=== PATIENT | female | born 1940 | race Caucasian/White ===

== ENCOUNTER 2017-12-15 14:54 | Inpatient (IN) | payer MEDICARE ==
[2017-12-15] MEDS ORDERED: NS 0.9% 1000 ML* 1,000 ML IV ONE (14:57)
--- NOTE | 2017-12-15 15:14 | RAD ---
HISTORY: Neurological changes, code tay COMPARISONS: May 02, 2010 TECHNIQUE: Multiple contiguous axial CT scans were obtained of the head without intravenous contrast. FINDINGS: HEMORRHAGE/INFARCT: There is no hemorrhage or acute infarct. MASSES/SHIFT: There is no mass or shift. EXTRA-AXIAL SPACES: There are no extra-axial fluid collections. SULCI AND VENTRICLES: The sulci and ventricles are normal in size and position for the patient's stated age. CEREBRUM: There are no focal parenchymal abnormalities. BRAINSTEM: There are no focal parenchymal abnormalities. CEREBELLUM: There are no focal parenchymal abnormalities. VESSELS: There is calcification of the cavernous segments of the internal carotid arteries bilaterally and of the distal vertebral arteries bilaterally. PARANASAL SINUSES: There is a mucous retention cyst versus polypoid mucosal thickening of the left maxillary sinus. ORBITS: The orbits are unremarkable. BONES AND SOFT TISSUE: No bone or soft tissue abnormalities are noted. OTHER: None IMPRESSION: NO ACUTE INTRACRANIAL PATHOLOGY. PRELIMINARY FINDINGS WERE DISCUSSED WITH DR. RANDALL IN THE EMERGENCY DEPARTMENT AT APPROXIMATELY 3:10 PM ON DECEMBER 15, 2017.
[2017-12-15] MEDS ORDERED: Labetalol IV* 5 MG/ML 20 ML VIAL IV PUSH ONE ×3 (15:24→22:22)
[2017-12-15] MEDS ORDERED: Labetalol IV* 5 MG/ML 20 ML VIAL ONE (15:26)
[2017-12-15 16:13] LABS: Urine Appearance Clear; Urine Blood 1+ (Negative); Urine Color Yellow; Urine Ketones Negative (Negative); Urine Protein 2+(100 mg/dL) (Negative); Urine Specific Gravity 1.008 (1.010-1.030); Urine Urobilinogen Negative (Negative)
[2017-12-15 16:38] LABS: ABS Basophils 0.1 10^3/ul (0-0.2); ABS Eosinophils 0.1 10^3/ul (0-0.6); ABS Lymphocytes 0.9 10^3/ul (1.0-4.8); ABS Monocytes 0.7 10^3/ul (0-0.8); ABS Neutrophils 8.6 10^3/ul (1.5-7.7); ABS Nucleated RBC 0 10^3/ul; Eosinophil % 0.8 % (0-6); Hematocrit 41 % (35-47); Hemoglobin 13.6 g/dl (12.0-16.0); Mean Corpuscular HGB Conc 33 g/dl (31-36); Mean Corpuscular Hemoglobin 28 pg (27-31); Mean Corpuscular Volume 84 fL (80-97); Mean Platelet Volume 7.8 um3 (7.4-10.4); Nucleated Red Blood Cells % 0; Platelet Count 248 10^3/ul (150-450); Red Blood Count 4.91 10^6/ul (4.0-5.4); Red Cell Distribution Width 15 % (10.5-15); White Blood Count 10.4 10^3/ul (3.5-10.8)
[2017-12-15 16:43] LABS: INR 0.93 (0.77-1.02)
--- NOTE | 2017-12-15 16:49 | RAD ---
Indication: Neurologic changes; code hurtado. History of obstructive lung disease and cardiac disease. Comparison: March 01, 2016 CT abdomen and portable chest radiograph. Technique: Upright AP 1613 hours Report: Mild bilateral alveolar and interstitial opacities. Grossly clear pleural spaces. Negative for pneumothorax. Cardiomegaly which appears increased. RIGHT atrial and RIGHT ventricular pacemaker leads. Prominent ill-defined central pulmonary vasculature with cephalization. IMPRESSION: Pulmonary vascular congestion and interstitial pulmonary edema.
[2017-12-15] MEDS ORDERED: Aspirin TAB* 325 MG PO ONE (16:51)
[2017-12-15 16:52] LABS: EGFR Non-African American 66.8 (>60)
[2017-12-15] MEDS ORDERED: Iodixanol* (CONTRAST) 320 MG/ML 100 ML SDV IV ONE (17:00)
[2017-12-15] MEDS ORDERED: Aspirin EC TAB* 81 MG TAB.EC ONE ×2 (17:05→17:10)
--- NOTE | 2017-12-15 19:13 | RAD ---
Indication: Aphasia. Contrast: Administered 80.2 ml of VISAPAQUE 320 mg/ml CTA The origin of the great vessels are unremarkable. The common carotid arteries bilaterally demonstrates no evidence of intimal wall thickening. Common carotid arteries appear to be tortuous bilaterally. Calcific plaque is noted at the origin of both internal carotid arteries. This appears to be less than 50% stenosis. The internal carotid arteries in the neck bilaterally demonstrates no evidence of carotid artery dissection. The vertebral arteries are widely patent with no evidence of vertebral artery dissection. Basilar artery and posterior cerebral arteries are normal. Atherosclerosis is noted in the intracavernous portions of the internal carotid arteries bilaterally. Anterior and middle cerebral arteries are unremarkable. No branch occlusion or aneurysmal dilatation identified. Basilar artery and posterior cerebral arteries are grossly unremarkable. No branch occlusion or aneurysmal dilatation is noted. Mucous retention cyst is noted in the left maxillary sinus. The lung apices are unremarkable. IMPRESSION: Atherosclerosis at the origin of the internal carotid arteries. No evidence of carotid artery dissection is noted. Intracranial circulation demonstrates no evidence of aneurysmal dilatation or branch occlusion.
[2017-12-15] MEDS ORDERED: Furosemide IV* 10 MG/ML 2 ML VIAL (20 MG) IV SLOW PU ONE (20:23)
[2017-12-15] MEDS ORDERED: Acetaminophen TAB* 325 MG PO PRN (20:23)
[2017-12-15] MEDS ORDERED: Dextrose 50% Syringe 50 ML* 25 GM/50 ML SYRINGE IV PUSH PRN (20:23)
--- NOTE | 2017-12-15 22:10 | CONS ---
NEUROLOGY CONSULTATION: DATE OF CONSULT: 12/15/17 LOCATION: She is in the emergency room, room 3. REFERRING PHYSICIAN: Dr. Wilson. PRIMARY CARE PHYSICIAN: Dr. Morrell. CHIEF COMPLAINT: Confusion. HISTORY OF PRESENT ILLNESS: This is a preliminary consult note on Bhavya Hooper, who is being considered for possible tPA or other endovascular therapy. She was found by her landlord at about 3 o'clock today confused in the driveway of their apartment building. An ambulance was summoned and she was brought in. The initial history given by the ambulance to Dr. Wilson was that she was last known well at about noon. I examined her quickly to determine whether or not she might be a tPA or endovascular candidate. She was being evaluated at about 3 hours and 20 minutes or 3 hours and 30 minutes after reported last known well. She has evidence of a right hemianopsia and a receptive aphasia. I think she probably has a left middle cerebral artery posterior division ischemic event. Her initial brain CT is unremarkable other than changes suggestive of subcortical small vessel disease. There is no family present. I spoke with Randy, her landlord at [phone], to get further history. He says that he found her confused in the driveway right when he called the ambulance, but he had not seen her at all earlier that day and nobody in the apartment complex had seen her for several days. He said this past Wednesday, which was about 5 to 6 days prior to admission, she called him because she could not figure out how to use the garage outdoor studies director. He went over and showed her that it was working perfectly normal. He was in her apartment, I believe, today and found it to be in great disarray with open cans of food all over and foul smell. I spoke with Dr. Yvette Morrell, her primary care physician. She says she is usually very alert and cognizant and pleasant. This preliminary report is largely to document we do not have a clear last known well within the last 24 hours or more. We will go ahead and proceed with further workup to include CT angiography after her blood tests are back, as so far there are no labs back yet. There will be an additional dictated note after the workup is complete. [id number]/[facility] #: [id number] [facility]
--- NOTE | 2017-12-15 22:35 | CONS ---
CC: Dr. Morrell * NEUROLOGY CONSULTATION: DATE OF CONSULT: 12/15/17 REFERRING PROVIDER: Dr. Wilson. She is in the emergency room to be admitted. CHIEF COMPLAINT: Confusion. ADDENDUM: Bhavya was seen earlier and a note was dictated. This was a followup to that note with more detailed exam. She is currently as of about 5 p.m. able to provide little more sensible history. She is still having difficulty with word findings, but she feels that she understands what I am saying and she is clearly communicating little bit better. She is still not able to provide a coherent history as to when she did not feel well. She feels that perhaps when she woke up, she did not feel well. She has felt sort of tired all day. She realizes that she came to emergency room in an ambulance. It is hard for her put together the rest of the pieces of today. She thinks as best as she can remember, she felt okay yesterday, but she is not really sure. She denies any headache currently. I asked if she takes aspirin and Plavix together and she says that she has not taken aspirin in a long time. PHYSICAL EXAMINATION: On examination, she is morbidly obese. Temperature 98 degrees by temporal scan, blood pressure has come down to 170/90 after initially being 200/135, heart rate is down in the 70s on the monitor now and appears to be in sinus rhythm. Respiratory rate 16, oxygen saturation is 95%. Oral mucosa is moist. Heart is in a regular rhythm with distant heart tones. I do not hear any murmurs. I cannot feel her carotid pulses with her thick neck. I do not hear any bruits. Lungs are clear anterolaterally. Her feet are callused and dirty. She has onychia in her toes. Neurological Exam: Pupils react equally from 3.5 to 2.5 mm. Funduscopic examination reveals sharp disk and arteriolar silver wiring and nicking. Visual cabrera continue to show right homonymous hemianopia. Facial musculature is symmetric. Facial sensation to light touch is symmetric, but pin is described as decreased on the right side of the face relative to the left. Tongue protrudes in the midline. Palate rises symmetrically. There is no dysarthria. Hearing is intact to finger rub bilaterally. Motor exam reveals normal tone and strength proximally and distally in upper and lower extremities. There is no rigidity and no drift of any limb. She has mild high-frequency sustention tremor in the hands. There is no rest tremor. [id number]-[id number] maneuver is slow, but normal bilaterally. Finger taps are slow, but normal bilaterally. She is not able to do heel to german due to limited flexibility in her lower extremities. Reflexes are fairly normal at biceps, brachioradialis and knees, ankle reflexes are absent. Plantar responses are flexor bilaterally. Sensory exam to light touch in the limbs is normal. Sensory discrimination to pin in all 4 limbs is reported as symmetric. I do not attempt to ambulate her. She is awake and alert. She is able to provide more fluent sentences. She has still difficulty coming up with words and naming some objects. She is able to follow command much more reliably. She still has difficulty providing recent history. LABORATORY DATA: So far, laboratory data is notable for CT of the brain, which does not show any acute changes. Her CBC is back today and looks to be a normal CBC with a platelet count of 248,000. His INR is normal today at 0.93. PTT borderline low at 25.8 seconds. Chemistry profile is back and is notable for an anion gap of 12, glucose of 216. Her hemoglobin A1c on 09/28/17 was 11.3%. Lactic acid today is slightly elevated at 2.5. Her troponin is borderline elevated at 0.05. 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 It is hard to know when the onset was and so I do not even think thrombectomy is an option here. She is off for a CT angiogram as I dictate. Her chemistries just came back and I wanted to make sure her creatinine was okay before we sent her off for the history of diabetes and the apparent lack of option for embolectomy or thrombectomy. I have asked the nurse to give her an aspirin 325 mg. She is already on Plavix and atorvastatin 80 mg at home. Currently, her blood pressure is acceptable. She should be admitted to telemetry. Reviewing an old echocardiogram from 2007 , she has a patent foramen ovale and I do not think a transthoracic is likely to be very useful given her body habitus. She cannot have an MRI scan because of her pacemaker and so I am planning to repeat her CAT scan of the brain without contrast tomorrow afternoon. Depending upon the results of her further studies, we will potentially make other recommendations. Her lipid profile is still pending. There is no other family to speak to. Apparently, her landlord Herb, who I spoke to, asked to be kept up to date, but I will need Bhavya's permission going forward for that. [id number]/[facility] #: [id number] MTDD
[2017-12-16] MEDS: Nystatin TOP POWDER* 15 GM BTL TOPICAL SCH ×4 (04:10→20:14)
[2017-12-16 05:50] LABS: ABS Basophils 0.1 10^3/ul (0-0.2); ABS Eosinophils 0.1 10^3/ul (0-0.6); ABS Lymphocytes 1.3 10^3/ul (1.0-4.8); ABS Monocytes 0.7 10^3/ul (0-0.8); ABS Neutrophils 6.1 10^3/ul (1.5-7.7); ABS Nucleated RBC 0 10^3/ul; Eosinophil % 1.6 % (0-6); Hematocrit 40 % (35-47); Lymphocyte % 15.6 % (25-47); Mean Corpuscular HGB Conc 33 g/dl (31-36); Mean Corpuscular Hemoglobin 28 pg (27-31); Mean Corpuscular Volume 84 fL (80-97); Mean Platelet Volume 8.1 um3 (7.4-10.4); Nucleated Red Blood Cells % 0; Platelet Count 239 10^3/ul (150-450); Red Cell Distribution Width 15 % (10.5-15); White Blood Count 8.3 10^3/ul (3.5-10.8)
[2017-12-16 05:56] LABS: INR 0.96 (0.77-1.02)
[2017-12-16 06:01] LABS: EGFR Non-African American 68.7 (>60)
--- NOTE | 2017-12-16 06:22 | HP ---
CC: Dr. Morrell; Dr. Palacio; Dr. Parker * HISTORY AND PHYSICAL: DATE OF ADMISSION: 12/15/17 PRIMARY CARE PROVIDER: Dr. Morrell. CONSULTING NEUROLOGISTS: Dr. Palacio and Dr. Parker. MY ATTENDING PHYSICIAN WHILE IN THE HOSPITAL: Dr. Candida Torres * (report dictated by Pawan Mchugh NP) CHIEF COMPLAINT: 1. Difficulty with speech. 2. Confusion. HISTORY OF PRESENT ILLNESS: Ms. Hooper is a 77-year-old female patient coming in to the emergency department today. According to her, she, around noon time, was found sitting in the driveway and she was confused. She remembers her neighbor and her landlord finding her and she remembered that she could not get her words out. They were slurred. She was not making sense. Her landlord was immediately concerned and felt that she should be evaluated. There were no reports of facial drooping, weakness to one side. No changes in vision. The patient says that she has not really been taking her medications over the last several days. She does not know how long. There was concern because of this confusion, trouble with her speech, and the landlord called 911 immediately. She came in to the hospital. She denies any recent chest pain or shortness of breath. No abdominal pain. Denies any nausea or vomiting. The biggest complaint now is that she feels like she has to pee. She is reminded she has a catheter in place. She denied having any abdominal discomfort. No flank pain. No dysuria recently. No fevers or chills. Her biggest complaint was the fact that she had trouble speaking today. She was evaluated in the ED because of concerns of the altered mental status and the dysarthria. We were asked to evaluate for admission. PAST MEDICAL HISTORY: Significant for: 1. Hypertension. 2. Diabetes. 3. History of DVT in the right arm according to old records; she does not recall this. She also has reported history of PE; again, she does not recall this. 4. There was a question of AFib in the past. 5. She has a history of third-degree heart block, status post pacemaker. 6. History of ANNA. 7. She has a history of diverticulitis. PAST SURGICAL HISTORY: 1. She has had a pacemaker. 2. She has had a hernia repair. MEDICATIONS: Her home medications include: 1. B12 1000 mcg IM monthly. 2. Bumex 1 mg 3 times a week as needed. 3. Metformin 1000 mg p.o. twice a day. 4. Ergocalciferol 50,000 units p.o. weekly. 5. Plavix 75 mg daily. 6. Cozaar 50 mg daily. 7. Lipitor 80 mg daily. 8. Toprol-XL 100 mg p.o. daily. 9. Amlodipine 5 mg daily. 10. Lantus 46 units subcu daily. ALLERGIES TO MEDICATIONS: Include CLINDAMYCIN and DILTIAZEM. FAMILY HISTORY: She cannot recall her father's history. Her mother did have a history of NM. SOCIAL HISTORY: She does not smoke. She does not drink. Surrogate decision maker is her friend, Kalpana. REVIEW OF SYSTEMS: There was no reported fever. There is no significant weight change that she reported. There was no double vision. There is no ear discharge. She is denying any rhinorrhea. No sore throat. No thyroid enlargement. Denied any chest pain. No shortness of breath. Her biggest complaint now is that she is having trouble, she feels like she has to pee. She denies any abdominal pain. There is no nausea, no vomiting. There is no dysuria, no frequency. She denied loss of consciousness to me. Review of 14 systems completed, all others negative. PHYSICAL EXAMINATION GENERAL: At this time, Ms. Hooper is a 77-year-old female patient. She is sitting in the ED stretcher. She does not appear to be in any acute distress. She is morbidly obese. VITAL SIGNS: Blood pressure now is 212/107, pulse 87, respirations 18, O2 sat 97%, temperature 98.7. HEENT: Head: Atraumatic. Eyes: Pupils reactive to light. Throat: Oral mucosa appears to be moist. Sclerae anicteric and not pale. She had no meningitic signs. NECK: Supple. LUNGS: Clear. No wheezes, rales, or rhonchi. HEART: Sounds S1, S2. She had a regular rate and rhythm. No murmurs, rubs, or gallops. ABDOMEN: Soft, flat, nontender. Bowel sounds are present. EXTREMITIES: She is able to move all 4 extremities with 5/5 strength. NEUROLOGIC: She is awake but she is confused at the time. She knows her name. She knows the location where she is at. Her speech to me appears to be clear. She had no facial drooping. Ksfeka-mj-culk intact bilaterally. Pfho-od-yrvc intact bilaterally. I could not appreciate any gross focal deficits. SKIN: Intact. DIAGNOSTIC STUDIES/LAB DATA: WBC 10.4, RBC 4.91, hemoglobin 13.6, hematocrit 41, platelet count of 248. INR was 0.93, PTT of 25.8. Sodium was 139, potassium 3.5, chloride of 99, bicarb 28, BUN 9, creatinine of 0.83, glucose 216 , calcium 9.6. Total bili 0.7, AST 25, ALT 29, alk phos 129. Troponin 0.05. Albumin was 3.8. Urine showed low specific gravity, 2+ protein, 1+ blood, present hyaline cast, 1+ glucose. She had a CTA head and neck, which revealed atherosclerosis at the origin of the internal carotid arteries. No evidence of carotid artery dissection. Intracranial circulation demonstrates no evidence of aneurysmal dilatation or branch occlusion, appears to be less than 50% stenosis. There was a chest x-ray obtained today; it appears that she does have pulmonary edema. Radiology did concur pulmonary vascular congestion, interstitial edema. She did have a brain CT obtained today, which showed no acute intracranial pathology. She had an EKG obtained today, which shows sinus tachycardia with rate of 100 and EKG today showing normal sinus rhythm, rate of 104, no ST elevations or T- wave inversions were noted. She did have some depression in lead 1 and 2 and aVL but no other depression noted. Previous EKGs were paced rhythms. Old medical records were reviewed. ASSESSMENT AND PLAN: Ms. Hooper is a 77-year-old female patient coming in to the emergency department today with complaints of difficulty with speech, confusion. She was evaluated in the ED today. There is concern for possible stroke. She will be admitted under inpatient status for: 1. Altered mental status. Differential is broad here. I did touch base with Dr. Palacio, who is on-call. She could have certainly hypertensive encephalopathy. She may have had a transient ischemic attack with a trouble of speaking today. My plan is to try to get that blood pressure systolics around 180 in addition to diastolic less than 100. I did touch base with Dr. Palacio about this, she was in agreement. Because of the high blood pressure, I am going to hold off on giving her heparin subcu until we get a better control. I am placing her in the ICU with neuro checks. I ordered an echo and repeat CT brain tomorrow. According to reports, the neighbors noted that the house appeared to be in disarray and it appeared to be very messy, which is not the patient's baseline. There does not appear to be any obvious lab abnormalities contributing to this, but I am going to check a TSH, in addition B12. She is not having any meningitic signs or signs or infection. This could be being driven by the uncontrolled blood pressure. We will continue to follow her closely in the ICU. 2. Hypertensive emergency. Again, I am going to give her some p.r.n. Lasix and labetalol. If I need to, I will place her on a drip. Again, with the goal blood pressure being systolics in the 180s and diastolic less than 100. 3. Diabetes. I am checking an A1c. I will continue Lantus on a sliding scale. 4. History of deep venous thrombosis and pulmonary embolism. When the blood pressure is better controlled, I am going to put her on heparin subcu for DVT prophylaxis as she is high risk. 5. History of third-degree heart block, she has a pacemaker. We will continue to monitor. 6. Questionable history of atrial fibrillation. I am seeing normal sinus here. I will go ahead and place her on telemetry. 7. Obstructive sleep apnea. I am checking an ABG to make sure that she is not hypercapnic, although I do not think this is the case. I am putting her on CPAP. She is supposed to be wearing this at home. 8. History of diverticulitis. Not an active issue, she is not having any abdominal pain, we will monitor. 9. DVT prophylaxis. Again, for now SCDs in the setting of this elevated blood pressure, I am concerned that I do not want her to have intracranial hemorrhage on the heparin. CT did not show this, but she is at risk for blood pressures this high. I will just put her on SCDs. When we get better control, I will put her on heparin subcu. 10. Code status. She is full code. 11. Fluids, electrolytes, nutrition. She can have a heart-healthy diet. TIME SPENT: On admission was 60 minutes, greater than half of the time was spent [id number] with the patient obtaining my history and physical; other half of the time was spent going over the plan of care with the patient, implementing plan of care. I did discuss the plan of care with my attending, Dr. Torres; she is in agreement. PAWAN MCHUGH, WU [id number]/[facility] #: [id number] [facility]
[2017-12-16] MEDS: Insulin GLARGINE(*) 1 UNITS UNIT SUBCUT SCH (08:06)
[2017-12-16] MEDS: Insulin LISPRO* 1 UNITS UNIT SUBCUT SCH ×3 (08:07→17:18)
[2017-12-16] MEDS: Aspirin EC TAB* 81 MG TAB.EC PO SCH (08:07)
[2017-12-16] MEDS: Clopidogrel TAB* 75 MG PO SCH (08:07)
[2017-12-16] MEDS: Atorvastatin* 80 MG TAB PO SCH (08:07)
[2017-12-16] MEDS ORDERED: Metoprolol Tartrate TAB* 50 mg PO SCH ×2 (10:00)
--- NOTE | 2017-12-16 11:06 | PN ---
Subjective Date of Service: 12/16/17 Interval History: She feels her memory is better and close to normal now. Mild R leg weakness. She has incomplete memory of recent events. Objective Active Medications: Acetaminophen (Tylenol Tab*) 650 mg PO Q4H PRN PRN Reason: FEVER/PAIN Aspirin (Aspirin Ec Tab*) 81 mg PO DAILY [facility] Last Admin: 12/16/17 08:07 Dose: 81 mg Atorvastatin Calcium (Lipitor*) 80 mg PO DAILY [facility] Last Admin: 12/16/17 08:07 Dose: 80 mg Clopidogrel Bisulfate (Plavix Tab*) 75 mg PO DAILY [facility] Last Admin: 12/16/17 08:07 Dose: 75 mg Dextrose (D50w Syringe 50 Ml*) 12.5 gm IV PUSH .FOR FS < 60 - SS PRN PRN Reason: FS < 60 Heparin Sodium (Porcine) (Heparin Vial(*)) 5,000 units SUBCUT Q8HR [facility] Insulin Glargine (Lantus(*)) 46 units SUBCUT DAILY [facility] Last Admin: 12/16/17 08:06 Dose: 46 units Insulin Human Lispro (Humalog*) 0 units SUBCUT AC [facility] PRN Reason: Protocol Last Admin: 12/16/17 08:07 Dose: 3 units Labetalol HCl (Trandate Iv*) 20 mg IV PUSH Q3H PRN PRN Reason: BLOOD PRESSURE Metoprolol Tartrate (Lopressor Tab*) 50 mg PO Q12HR [facility] Last Admin: 12/16/17 10:15 Dose: 50 mg Nystatin (Nystatin Top Powder*) 1 applic TOPICAL TID [facility] Last Admin: 12/16/17 08:07 Dose: 1 applic Vital Signs - 8 hr 12/16/17 12/16/17 12/16/17 03:01 03:16 03:31 Temperature Pulse Rate 80 81 78 Respiratory 25 29 18 Rate Blood Pressure 181/87 188/117 186/83 (mmHg) O2 Sat by Pulse 94 96 94 Oximetry 12/16/17 12/16/17 12/16/17 03:46 04:00 04:01 Temperature 98.4 F Pulse Rate 78 77 79 Respiratory 24 23 23 Rate Blood Pressure 181/82 180/84 (mmHg) O2 Sat by Pulse 94 92 94 Oximetry 12/16/17 12/16/17 12/16/17 04:16 04:31 04:46 Temperature Pulse Rate 79 80 81 Respiratory 22 23 26 Rate Blood Pressure 163/82 192/103 196/98 (mmHg) O2 Sat by Pulse 93 94 93 Oximetry 12/16/17 12/16/17 12/16/17 05:00 05:01 05:16 Temperature Pulse Rate 80 80 79 Respiratory 24 26 22 Rate Blood Pressure 187/92 187/89 (mmHg) O2 Sat by Pulse 92 93 93 Oximetry 12/16/17 12/16/17 12/16/17 06:00 07:00 07:48 Temperature 98.6 F 99.1 F Pulse Rate 83 82 85 Respiratory 22 23 18 Rate Blood Pressure 218/107 (mmHg) O2 Sat by Pulse 91 93 97 Oximetry 12/16/17 12/16/17 12/16/17 07:54 08:00 08:02 Temperature 98 F Pulse Rate 86 87 Respiratory 20 25 Rate Blood Pressure 210/95 195/108 (mmHg) O2 Sat by Pulse 95 91 Oximetry 12/16/17 12/16/17 12/16/17 08:05 08:32 09:00 Temperature Pulse Rate 85 86 89 Respiratory 17 27 29 Rate Blood Pressure 177/93 151/88 180/100 (mmHg) O2 Sat by Pulse 95 94 93 Oximetry 12/16/17 12/16/17 12/16/17 09:01 09:32 10:00 Temperature Pulse Rate 88 88 86 Respiratory 19 27 24 Rate Blood Pressure 181/105 163/95 (mmHg) O2 Sat by Pulse 93 92 93 Oximetry 12/16/17 10:01 Temperature Pulse Rate 86 Respiratory 26 Rate Blood Pressure 162/81 (mmHg) O2 Sat by Pulse 93 Oximetry Oxygen Devices in Use Now: Nasal Cannula Appearance: Alert, partly up in bed. In good spirits. Looks comfortable. Eyes: No Scleral Icterus Respiratory: Symmetrical Chest Expansion and Respiratory Effort, Clear to Auscultation, Clear to Percussion Cardiovascular: NL Sounds; No Murmurs; No JVD, RRR, No Edema, - Extremities: No Edema, No Clubbing, Cyanosis, - Skin: No Rash or Ulcers, No Nodules or Sclerosis, - Neurological: NL Sensation, - - ? mild R foot dorsiflexion weakness. Speech clear and fluent. She guessed her age was in the 80's. She stated the present month is December. No tremor. Result Diagrams: 12/16/17 05:25 12/16/17 11:54 Microbiology and Other Data: Microbiology 12/15/17 21:33 Nasal Screen MRSA (PCR)(JEFFERY) - Final Nasal Mrsa Not Detected Assess/Plan/Problems-Billing Assessment: - Patient Problems (1) CVA (cerebral vascular accident) Current Visit: Yes Status: Acute Code(s): I63.9 - CEREBRAL INFARCTION, UNSPECIFIED SNOMED Code(s): 375089634 Comment: Clinically suspect CVA. Cannot r/o seizure, EEG pending. Discussed with Dr. Parker. PT/OT. MRI staff and [facility] charge nurse will see if her pacemaker is OK for MRI, otherwise she will have repoeat CT brain 12/16. (2) Morbid obesity Current Visit: Yes Status: Acute Code(s): E66.01 - MORBID (SEVERE) OBESITY DUE TO EXCESS CALORIES SNOMED Code(s): 120016709 Comment: BMI 47.2. (3) Third degree heart block Current Visit: No Status: Acute Priority: High Onset Date: 03/19/14 Code (s): I44.2 - ATRIOVENTRICULAR BLOCK, COMPLETE SNOMED Code(s): 40541570 Comment: PPM, followed by Dr. Foster. I spoke to construction technician--clearance for MRI would take 4-5 days and should be done as an outpt. (4) Diabetes Current Visit: Yes Status: Acute Code(s): E11.9 - TYPE 2 DIABETES MELLITUS WITHOUT COMPLICATIONS SNOMED Code(s): 18975396 Comment: Hold metformin, continue Lantus. (5) HTN (hypertension) Current Visit: Yes Status: Acute Code(s): I10 - ESSENTIAL (PRIMARY) HYPERTENSION SNOMED Code(s): 99659910 Comment: Resume metoprolol but change to tartrate and give 50% home dose. PRN IV labetalol.
[2017-12-16] MEDS: Labetalol IV* 5 MG/ML 20 ML VIAL IV PUSH PRN ×4 (11:35→23:39)
--- NOTE | 2017-12-16 11:40 | ED ---
Harry Sierra Angela, scribed for Valerio Wilson MD on 12/15/17 at 1501 . Neurological HPI - HPI Summary HPI Summary: This pt is a 77 y/o female presenting to [facility] via EMS for bilateral lower extremity weakness and slurred speech. EMS reports the last time the pt was seen normal was at 12:00 today by her landlord. Per EMS, at approximately 14:30 the landlord found the pt sitting in her driveway with slurred speech, inability to get up, and confused. EMS picked up the pt at 14:40 today. EMS reports left upper extremity and bilateral lower extremity weakness. Upon arrival to the ED, EMS reports the pt's slurred speech has improved. PMHx includes diabetes, HTN, sleep apnea, 3rd degree block, frequent UTI, cardiac pacemaker, lymphedema in both LE, TIA, seizures, PE. - History of Current Complaint Stated Complaint: POSSIBLE STROKE Hx Obtained From: Patient, EMS Onset/Duration: Sudden Onset, Still Present Timing: Sudden Onset Current Severity: Severe Neurological Deficit Location: LUE, RLE, LLE Character: Weak, Motor Weakness, Other: - slurred speech Aggravating: Nothing Alleviating: Nothing Associated Signs and Symptoms: Positive: Weakness, Impaired Speech - slurred - Allergy/Home Medications Allergies/Adverse Reactions: Allergies Allergy/AdvReac Type Severity Reaction Status Date / Time clindamycin Allergy Intermediate Rash Verified 12/15/17 16:57 diltiazem Allergy Intermediate Rash Verified 12/15/17 16:57 Home Medications: Home Medications Bumetanide TAB* [Bumex 1 MG TAB*] 1 mg PO .THREE TIMES A WEEK PRN 12/15/17 [ History Confirmed 12/15/17] Cyanocobalamin INJ * [Vitamin B12 INJ *] 1,000 mcg IM MONTHLY 12/15/17 [History Confirmed 12/15/17] Ergocalciferol CAP* [Drisdol CAP*] 50,000 unit PO WEEKLY 12/15/17 [History Confirmed 12/15/17] Metoprolol Succinate XL TAB* [Toprol XL TAB*] 100 mg PO DAILY 12/15/17 [History Confirmed 12/15/17] amLODIPine TAB* [Norvasc 5 mg TAB*] 5 mg PO DAILY 12/15/17 [History Confirmed ] metFORMIN* [Glucophage 500 MG TAB *] 1,000 mg PO BID 12/15/17 [History Confirmed 12/15/17] PMH/Surg Hx/FS Hx/Imm Hx Endocrine/Hematology History: Reports: Hx Diabetes - DM2, diet/PO med controlled Denies: Hx Systemic Lupus Erythematosus Cardiovascular History: Reports: Hx Congenital Heart Disease - in records with mica inspector, pt unsure of name of defect, Hx Deep Vein Thrombosis, Hx Hypercholesterolemia, Hx Hypertension, Hx Pacemaker/ICD - 9/02/22 Denies: Hx Congestive Heart Failure Respiratory History: Reports: Hx Asthma, Hx Pulmonary Embolism, Hx Sleep Apnea GI History: Reports: Hx Diverticulosis, Hx Hiatal Hernia, Other GI Disorders - hernia repair History: Reports: Other Problems/Disorders - frequent UTIs Musculoskeletal History: Denies: Hx Rheumatoid Arthritis Sensory History: Reports: Hx Contacts or Glasses Opthamlomology History: Reports: Hx Contacts or Glasses Neurological History: Reports: Hx Seizures, Hx Transient Ischemic Attacks (TIA) - Cancer History Hx Chemotherapy: No Hx Radiation Therapy: No - Surgical History Surgery Procedure, Year, and Place: hernia repair, 1991 diverticulitis/ peritonitis sx - Immunization History Date of Tetanus Vaccine: unsure Date of Influenza Vaccine: never - Family History Known Family History: Negative: Cardiac Disease - Social History Alcohol Use: None Alcohol Amount: A GLASS OF WINE A WEEK Substance Use Type: Reports: None Smoking Status (MU): Never Smoked Tobacco Review of Systems Negative: Fever, Chills Eyes: Negative ENT: Negative Neurological: Other - POS: slurred speech Positive: Weakness - in bilateral LE and LUE All Other Systems Reviewed And Are Negative: Yes Physical Exam - Summary Physical Exam Summary: VITAL SIGNS: Reviewed. GENERAL: Patient is a well-developed and nourished female who is lying comfortable in the stretcher. Patient is not in any acute respiratory distress. HEAD AND FACE: No signs of trauma. No ecchymosis, hematomas or skull depressions. No sinus tenderness. EYES: PERRLA, EOMI x 2, No injected conjunctiva, no nystagmus. EARS: Hearing grossly intact. Ear canals and tympanic membranes are within normal limits. MOUTH: Oropharynx within normal limits. NECK: Supple, trachea is midline, no adenopathy, no JVD, no carotid bruit, no c- spine tenderness, neck with full ROM. CHEST: Symmetric, no tenderness at palpation LUNGS: Clear to auscultation bilaterally. No wheezing or crackles. CVS: Regular rate and rhythm, S1 and S2 present, no murmurs or gallops appreciated. ABDOMEN: Soft, non-tender. No signs of distention. No rebound no guarding, and no masses palpated. Bowel sounds are normal. EXTREMITIES: no cyanosis or clubbing. Lymphedema of bilateral lower extremities. NEURO: Alert but not oriented. Speech is normal. Pt has decreased sensation in lower extremities. Decreased movement of bilateral lower extremieites. Pt is able to states her name. SKIN: Dry and warm Triage Information Reviewed: Yes Vital Signs On Initial Exam: Initial Vitals Temp Pulse Resp BP Pulse Ox 98 F 110 18 159/107 95 12/15/17 14:55 12/15/17 14:55 12/15/17 14:55 12/15/17 14:55 12/15/17 14:55 Vital Signs Reviewed: Yes - [place] Coma Scale Best Eye Response: 4 - Spontaneous Best Motor Response: 6 - Obeys Commands Best Verbal Response: 5 - Oriented Coma Scale Total: 15 Diagnostics - Laboratory Result Diagrams: 12/15/17 16:26 12/15/17 16:26 Lab Statement: Any lab studies that have been ordered have been reviewed, and results considered in the medical decision making process. - Radiology Chest XR Xray Interpretation: Positive (See Comments) - IMPRESSION: Pulmonary vascular congestion and interstitial pulmonary edema. Dr. Wilson has reviewed this radiology report. Radiology Interpretation Completed By: Radiologist - CT Brain CT CT Interpretation: No Acute Changes - IMPRESSION: No acute intracranial pathology. Dr. Wilson has reviewed this radiology report. CT Interpretation Completed By: Radiologist - EKG 15:17 Cardiac Rate: Tachycardia - at 104 bpm EKG Rhythm: Atrial Fibrillation EKG Interpretation: No ST elevations. NIH Scale - NIH Scale Level of Consciousness: Alert/Keenly Responsive Ask Patient the Month and His/Her Age: Neither Correct/Aphasic Ask Pt to Open/Close Eyes and Linux System Engineer/Release Non-Paretic Hand: Both Correctly Best Gaze (Only Horizontal Eye Movement): Normal Visual Field Testing: No Visual Loss Facial Paresis-Pt to Smile & Close Eyes or Grimace Symmetry: Normal/Symmetrical Motor Function - Right Arm: No Drift-Holds 10 Seconds Motor Function - Left Arm: No Drift-Holds 10 Seconds Motor Function - Right Leg: Drifts LT 10 seconds Motor Function - Left Leg: Drifts LT 10 seconds Limb Ataxia-Must be out of Proportion to Weakness Present: Absent Sensory (Use Pinprick to Test Arms/Legs/Trunk/Face): Pinprick Less on Affected Best Language (Describe Picture, Name Items): No Aphasia Dysarthria (Read Several Words): Normal Extinction and Inattention: No Abnormality Total Score: 5 Re-Evaluation - Re-Evaluation First Eval Re-Evaluation Time: 15:16 Comment: Dr. Parker in to see the pt. Second Eval Re-Evaluation Time: 15:45 Comment: Dr. Parker spoke with the pt's landlord and he is not 100% sure of the last well seen. Unsure of the time of onset of the pt's sypmtoms. Third Eval Re-Evaluation Time: 16:30 Comment: Dr. Parker requested CTA since the pt is not a candidate for TPA. The CTA was ordered at 15:46. Molly, from CT, spoke directly with Dr. Parker and Dr. Parker had advised not to do the CT until we obtain lab results Fourth Eval Re-Evaluation Time: 17:04 Comment: Dr. Parker recommends for the pt to be admitted to the hospitalist. Course/Dx - Course Assessment/Plan: Pt is a 77 y/o female who presents with bilateral lower extremity weakness and slurred speech. EMS reports the last time the pt was seen normal was at 12:00 today by her landlord. Per EMS, at approximately 14:30 the landlord found the pt sitting in her driveway with slurred speech, inability to get up, and confused. EMS picked up the pt at 14:40 today. EMS reports left upper extremity and bilateral lower extremity weakness. Upon arrival to the ED, EMS reports the pt's slurred speech has improved. Initially we called a code tay for the pt. The head CT is negative for an acute pathology. I discussed the case with Dr. Parker, neurologist, who came and assessed the pt. Since we dont have an exact time of onset of symptoms, he reports the pt is not a candidate for TPA. He reports to do a head and neck CTA. The pt was given aspirin and the pt has not changed in her neurological status. Test results without any significant abnormalities except for glucose of 216, lactic acid is 2.5, troponin is 0.05. Chest XR shows pulmonary vascular congestion and interstitial pulmonary edema. Brain CT: No acute intracranial pathology. The pt was also given labetalol for hypertension. The last blood pressure manually is 160/80. The pt is awaiting for the CTA results and if there are no significant abnormalities the pt will be admitted to the hospitalist services. If she has advanced disease in the carotid arteries she may be a candidate for transfer. Pt will be signed out to Dr. Emanuel to follow up on the CTA of head/neck and further disposition. - Diagnoses Provider Diagnoses: Ischemic cerebrovascular accident (CVA) During the Visit The Following Alert/Code Occurred: Code Tay - at 14:57 - Physician Notifications Discussed Care Of Patient With: Nathan Parker Time Discussed With Above Provider: 15:12 Instructed by Provider To: Other - I discussed pt care with Dr. Parker, neurologist, who will consult on the pt. [17:09] I discussed with Dr. Shepard, hospitalist, who reports she wants the CTA results first to rule out a carotid stenosis. Discharge - Sign-Out/Discharge Documenting (check all that apply): Discharge/Admit/Transfer - Admit, Sign-Out Patient Signing out patient TO: Zhen Emanuel - Discharge Plan Condition: Stable Disposition: ADMITTED TO [facility] Referrals: Yvette Morrell MD [Primary Care Provider] - The documentation as recorded by the Harry pruitt Angela accurately reflects the service I personally performed and the decisions made by , Valerio Wilson MD.
[2017-12-16 12:07] LABS: INR 0.97 (0.77-1.02)
[2017-12-16 12:21] LABS: EGFR Non-African American 69.7 (>60)
[2017-12-16 12:46] LABS: ABS Basophils 0 10^3/ul (0-0.2); ABS Eosinophils 0.1 10^3/ul (0-0.6); ABS Lymphocytes 1.1 10^3/ul (1.0-4.8); ABS Monocytes 0.7 10^3/ul (0-0.8); ABS Nucleated RBC 0 10^3/ul; Eosinophil % 1.7 % (0-6); Hematocrit 42 % (35-47); Hemoglobin 13.1 g/dl (12.0-16.0); Lymphocyte % 16.2 % (25-47); Mean Corpuscular HGB Conc 31 g/dl (31-36); Mean Corpuscular Hemoglobin 28 pg (27-31); Mean Corpuscular Volume 89 fL (80-97); Mean Platelet Volume 7.7 um3 (7.4-10.4); Nucleated Red Blood Cells % 0.1; Platelet Count 184 10^3/ul (150-450); Red Blood Count 4.68 10^6/ul (4.0-5.4); Red Cell Distribution Width 16 % (10.5-15); White Blood Count 6.9 10^3/ul (3.5-10.8)
--- NOTE | 2017-12-16 13:21 | ECHO ---
Patient: BRIANDA SARMIENTO [facility] Rec#: [id number] : 1940 Date: 12/16/2017 Age: 77y Height: 165.1 cm / 65.0 in Weight: 132.9 kg / 292.9 lbs Sex: F BSA: 2.33 Room#: ICU 8 Admit Date#: 12/15/2017 Type: Inpatient Referring: Pawan Mchugh NP Reading: Tigre Hunter MD Street Department Dispatcher: Renetta Shah RDCS,RDMS CC: Yvette Morrell MD Transthoracic Echocardiogram Indication: TIA, Hypertensive urgency BP: 187/89 HR: 86 Rhythm: NSR Findings History: Pacemaker, HTN, DM, DVT, PE, ANNA, morbid obesity Technical Comments: The study quality is poor. The study is technically limited due to patient body habitus. Left Ventricle: The left ventricular chamber size is normal. Mild to moderate concentric left ventricular hypertrophy is observed. There is a prominent septal knuckle. The left ventricle appears hyperdynamic. The estimated ejection fraction is greater than 65%. Abnormal left ventricular diastolic filling is observed, consistent with impaired relaxation. Left Atrium: The left atrium is mild to moderately dilated. Right Ventricle: The right ventricular chamber size and systolic function are within normal limits. The right ventricle wall thickness is mildly increased. A pacemaker wire is visualized in the right ventricle. Right Atrium: The right atrial cavity size is normal. Aortic Valve: The aortic valve is trileaflet. The aortic valve leaflets are mildly thickened. There is moderate thickening of the non coronary cusp. There is no evidence of aortic regurgitation. There is no evidence of aortic stenosis. Mitral Valve: There is mitral annular calcification. The mitral valve leaflets are mildly thickened. There is a trace of mitral regurgitation. There is no evidence of mitral stenosis. Tricuspid Valve: The tricuspid valve leaflets are not thickened. There is no evidence of tricuspid valve regurgitation. Unable to estimate the right ventricular systolic pressure. Pulmonic Valve: There is no evidence of pulmonic valve thickening. There is no evidence of pulmonic regurgitation. Pericardium: There is no significant pericardial effusion. Aorta: The ascending aorta is not well visualized. There is no dilatation of the aortic arch. There is mild dilatation of the aortic root. Pulmonary Artery: The main pulmonary artery is not well visualized. Venous: The inferior vena cava appears normal in size. There is a greater than 50% respiratory change in the inferior vena cava dimension. Conclusions Technically suboptimal images for interpretation due to body habitus. Mild to moderate concentric left ventricular hypertrophy is observed. The left ventricle appears hyperdynamic. The estimated ejection fraction is greater than 65%. Abnormal left ventricular diastolic filling is observed, consistent with impaired relaxation. The left atrium is mild to moderately dilated. There is a trace of mitral regurgitation. There is mild dilatation of the aortic root. Compared to report of study from 10/03/2012 there is no significant cange. Measurements Name Value Normal Range RVDdMajor (2D) 3.2 cm (2.2 - 4.4) RAd ISD 4CH 4.9 cm (3.4 - 4.9) RA (A4C)W 4.2 cm (2.9 - 4.6) IVSd (2D) 1.4 cm (0.6 - 1) LVPWd (2D) 1.1 cm (0.6 - 1) LVIDd (2D) 4.2 cm (3.6 - 5.4) LVIDs (2D) 2.6 cm - LV FS (2D) 37 % (25 - 45) Aortic Annulus 2 cm (1.4 - 2.6) Ao root diameter (2D) 3.6 cm (2.1 - 3.5) Aortic arch 2.6 cm (1.8 - 3.4) LA dimension (AP) 2D 4.2 cm (2.3 - 3.8) LAd ISD 4CH 5.4 cm (2.9 - 5.3) LA ISD 4CH W 4.9 cm (2.5 - 4.5) Name Value Normal Range LA ESV SP 4CH (A/L) 81 ml - LA ESV SP 2CH (A/L) 116.92 ml - LA ESV BP (A/L) 104.77 ml - LA ESV BP (A/L) index 45 ml/m2 - LA ESV SP 4CH (MOD) 77.66 ml - LA ESV SP 2CH (MOD) 110.08 ml - Name Value Normal Range MV E-wave Vmax 0.7 m/sec - MV deceleration time 229 msec - MV A-wave Vmax 1.3 m/sec - MV E:A ratio 0.5 ratio - LV septal e' Vmax 0.03 m/sec - LV lateral e' Vmax 0.03 m/sec - LV E:e' septal ratio 23 ratio - LV E:e' lateral ratio 23 ratio - Name Value Normal Range AV Vmax 1.5 m/sec - AV VTI 25.5 cm - AV peak gradient 9 mmHg - AV mean gradient 4.9 mmHg - LVOT Vmax 1.4 m/sec - LVOT VTI 26.6 cm - LVOT peak gradient 8 mmHg - LVOT mean gradient 5 mmHg - KATHY Vmax 0.8 m/sec - Name Value Normal Range MV Vmax 1.6 m/sec - MV VTI 29.1 cm - MV peak gradient 10 mmHg - MV mean gradient 4 mmHg - MV PHT 37 msec - MVA (PHT) 5.9 cm2 - Name Value Normal Range RAP 8 mmHg - IVC diameter 1.7 cm - Name Value Normal Range PV Vmax 0.8 m/sec - PV peak gradient 2.6 mmHg -
--- NOTE | 2017-12-16 14:44 | RAD ---
HISTORY: cva COMPARISONS: December 15, 2017 TECHNIQUE: Multiple contiguous axial CT scans were obtained of the head without intravenous contrast. FINDINGS: HEMORRHAGE/INFARCT: There is no hemorrhage or acute infarct. MASSES/SHIFT: There is no mass or shift. EXTRA-AXIAL SPACES: There are no extra-axial fluid collections. SULCI AND VENTRICLES: The sulci and ventricles are normal in size and position for the patient's stated age. CEREBRUM: There are no focal parenchymal abnormalities. BRAINSTEM: There are no focal parenchymal abnormalities. CEREBELLUM: There are no focal parenchymal abnormalities. VESSELS: There is calcification of the cavernous segments of the internal carotid arteries bilaterally and of the distal vertebral arteries bilaterally. PARANASAL SINUSES: The paranasal sinuses are clear. ORBITS: The orbits are unremarkable. BONES AND SOFT TISSUE: No bone or soft tissue abnormalities are noted. OTHER: None IMPRESSION: NO ACUTE INTRACRANIAL PATHOLOGY.
[2017-12-16] MEDS: Heparin VIAL(*) 5000 UNITS/ML VIAL (FIVE THOUSAND) SUBCUT SCH ×2 (15:25→21:32)
[2017-12-16] MEDS: Metoprolol Tartrate TAB* 50 mg PO SCH (20:14)
[2017-12-17] MEDS: Heparin VIAL(*) 5000 UNITS/ML VIAL (FIVE THOUSAND) SUBCUT SCH ×3 (05:07→21:07)
[2017-12-17] MEDS: Atorvastatin* 80 MG TAB PO SCH (08:45)
[2017-12-17] MEDS: Aspirin EC TAB* 81 MG TAB.EC PO SCH (08:45)
[2017-12-17] MEDS: Clopidogrel TAB* 75 MG PO SCH (08:46)
[2017-12-17] MEDS: Metoprolol Tartrate TAB* 50 mg PO SCH ×2 (08:46→21:03)
[2017-12-17] MEDS: Insulin LISPRO* 1 UNITS UNIT SUBCUT SCH ×3 (08:55→17:52)
[2017-12-17] MEDS: Insulin GLARGINE(*) 1 UNITS UNIT SUBCUT SCH (08:56)
[2017-12-17] MEDS: Nystatin TOP POWDER* 15 GM BTL TOPICAL SCH ×3 (08:56→21:08)
--- NOTE | 2017-12-17 11:55 | EEG ---
ELECTROENCEPHALOGRAPHY: DATE OF STUDY: 12/16/17 REFERRING PHYSICIAN: Pawan Mchugh NP. LOCATION: She is an inpatient in the ICU. CLINICAL PROBLEM: Confusion, possible aphasia and hemianopsia. Severe hypertension. MEDICATIONS: 1. Atorvastatin. 2. Aspirin. 3. Plavix. 4. Insulin. 5. Acetaminophen. REPORT: This 16-channel EEG is remarkable for background rhythms consisting of intermittent polymorp hic delta rhythm seen from the left hemisphere and to a lesser extent centrally. There appears to be some overflow into the right side but this was occasional synchronous delta slowing from the right f rontal region. There is an alpha rhythm posterior derivations at about 8.5 to 9 cycles per se cond which is better formed in the right occipital region than the left. The patient is awake and ta lking intermittently during the recording. Occasionally, muscle artifact is noted and eye movement a rtifact is noted. The patient is not clearly drowsy or fall asleep. There are no epileptiform disch arges during this recording. INTERPRETATION: Abnormal EEG due to left more than right hemispheric slowing consistent with left mo re than right diffuse neuronal dysfunction. There are no clearly epileptiform discharges during this recording. [id number]/[facility] #: [id number]
--- NOTE | 2017-12-17 14:10 | PN ---
Subjective Date of Service: 12/17/17 Interval History: No c/o, anxious to go home. Objective Active Medications: Acetaminophen (Tylenol Tab*) 650 mg PO Q4H PRN PRN Reason: FEVER/PAIN Aspirin (Aspirin Ec Tab*) 81 mg PO DAILY [facility] Last Admin: 12/17/17 08:45 Dose: 81 mg Atorvastatin Calcium (Lipitor*) 80 mg PO DAILY [facility] Last Admin: 12/17/17 08:45 Dose: 80 mg Clopidogrel Bisulfate (Plavix Tab*) 75 mg PO DAILY [facility] Last Admin: 12/17/17 08:46 Dose: 75 mg Dextrose (D50w Syringe 50 Ml*) 12.5 gm IV PUSH .FOR FS < 60 - SS PRN PRN Reason: FS < 60 Heparin Sodium (Porcine) (Heparin Vial(*)) 5,000 units SUBCUT Q8HR [facility] Last Admin: 12/17/17 05:07 Dose: 5,000 units Insulin Glargine (Lantus(*)) 46 units SUBCUT DAILY [facility] Last Admin: 12/17/17 08:56 Dose: 46 units Insulin Human Lispro (Humalog*) 0 units SUBCUT AC [facility] PRN Reason: Protocol Last Admin: 12/17/17 12:56 Dose: 3 units Labetalol HCl (Trandate Iv*) 20 mg IV PUSH Q3H PRN PRN Reason: BLOOD PRESSURE Last Admin: 12/16/17 23:39 Dose: 20 mg Metoprolol Tartrate (Lopressor Tab*) 75 mg PO Q12HR [facility] Last Admin: 12/17/17 08:46 Dose: 75 mg Nystatin (Nystatin Top Powder*) 1 applic TOPICAL TID [facility] Last Admin: 12/17/17 08:56 Dose: 1 applic Vital Signs - 8 hr 12/17/17 12/17/17 12/17/17 06:32 07:00 07:01 Temperature Pulse Rate 66 72 70 Respiratory 19 15 24 Rate Blood Pressure 132/104 (mmHg) O2 Sat by Pulse 95 94 97 Oximetry 12/17/17 12/17/17 12/17/17 07:36 08:00 08:04 Temperature 97.2 F Pulse Rate 70 73 Respiratory 22 10 Rate Blood Pressure 154/94 (mmHg) O2 Sat by Pulse 96 98 Oximetry 12/17/17 12/17/17 12/17/17 09:00 09:12 10:00 Temperature Pulse Rate 77 71 Respiratory 18 22 22 Rate Blood Pressure 122/101 (mmHg) O2 Sat by Pulse 96 97 Oximetry 12/17/17 12/17/17 12/17/17 10:01 11:00 11:01 Temperature Pulse Rate 71 71 Respiratory 17 27 28 Rate Blood Pressure 112/73 121/68 (mmHg) O2 Sat by Pulse 95 95 Oximetry 12/17/17 12/17/17 12:00 13:00 Temperature 98.9 F Pulse Rate 75 74 Respiratory 23 17 Rate Blood Pressure (mmHg) O2 Sat by Pulse 97 96 Oximetry Oxygen Devices in Use Now: Nasal Cannula Appearance: Alert, in a chair in ICU. In good spirits. Looks comfortable. Eyes: No Scleral Icterus Extremities: No Edema, No Clubbing, Cyanosis, - Skin: No Rash or Ulcers, No Nodules or Sclerosis, - Neurological: NL Sensation - Lacks insight into her memory problems. No tremor. Result Diagrams: 12/16/17 12:00 12/16/17 11:54 Microbiology and Other Data: Microbiology 12/15/17 21:33 Nasal Screen MRSA (PCR)(JEFFERY) - Final Nasal Mrsa Not Detected Assess/Plan/Problems-Billing Assessment: - Patient Problems (1) CVA (cerebral vascular accident) Current Visit: Yes Status: Acute Code(s): I63.9 - CEREBRAL INFARCTION, UNSPECIFIED SNOMED Code(s): 587826967 Comment: CVA vs hypertensive encephalopathy. EEG showed L hemispheric slowing , no epileptiform discharges. Discussed with Dr. Parker. PT/OT. Repeat CT brain 12/16 did not show any acute event. (2) Morbid obesity Current Visit: Yes Status: Acute Code(s): E66.01 - MORBID (SEVERE) OBESITY DUE TO EXCESS CALORIES SNOMED Code(s): 117972485 Comment: BMI 47.2. (3) Third degree heart block Current Visit: No Status: Acute Priority: High Onset Date: 03/19/14 Code (s): I44.2 - ATRIOVENTRICULAR BLOCK, COMPLETE SNOMED Code(s): 71573255 Comment: [facility], followed by Dr. Foster. I spoke to information technology officer--clearance for MRI would take 4-5 days and should be done as an outpt. (4) Diabetes Current Visit: Yes Status: Acute Code(s): E11.9 - TYPE 2 DIABETES MELLITUS WITHOUT COMPLICATIONS SNOMED Code(s): 97168388 Comment: Hold metformin, continue Lantus. (5) HTN (hypertension) Current Visit: Yes Status: Acute Code(s): I10 - ESSENTIAL (PRIMARY) HYPERTENSION SNOMED Code(s): 31108930 Comment: Metoprolol now at 75% of her home dose. PRN IV labetalol.
--- NOTE | 2017-12-17 22:09 | CONS ---
NEUROLOGY FOLLOWUP NOTE: DATE OF FOLLOWUP: 12/17/17 LOCATION: She is in the ICU, bed A. HOSPITALIST: Dr. Cruz. CHIEF COMPLAINT: Confusion, aphasia. INTERVAL HISTORY: Since yesterday, Bhavya feels much better. She is sitting up in a chair and was able to walk a little bit around the intensive care unit. She is quite happy that she is more mobile. She feels her memory is back to normal, although she does not recall the details of coming to the hospital. She does not have any headache. She has not noticed any problems with her vision. MEDICATIONS: Reviewed and she is on: 1. Insulin. 2. Metoprolol 75 mg p.o. q.12 hours. 3. Heparin subcu 5000 units q.8 hours. 4. Plavix 75 mg p.o. daily. 5. Aspirin 81 mg p.o. daily. 6. Atorvastatin 80 mg p.o. daily. PHYSICAL EXAM: She is overweight. She remains afebrile. Most recent blood pressure 121/68, heart rate in the 70s and regular, respiratory rate 28 with oxygen saturation 95% on room air. Facial musculature is symmetric. Eye movements are full. Visual cabrera are full. Speech is clear. Language is fluent. She is alert and fully oriented. DIAGNOSTIC STUDIES/LAB DATA: Includes a CT of the brain yesterday about 24 hours after presentation and interpreted as normal by Dr. Salcedo. I reviewed the images and I agree. She had an EEG performed yesterday, which revealed bihemispheric slowing more on the left than the right hemisphere. There were no epileptiform discharges. Other laboratory data notable for fingerstick glucose today of 194, it was 149 this morning. IMPRESSION AND PLAN: Impression is that of resolving encephalopathy. She may have had hypertensive encephalopathy with focal features and she may have actually had an ischemic event. Unfortunately, an MRI is not possible during this hospitalization. I would recommend that she move to the medical floor and if doing well tomorrow , can be discharged on her usual medications plus Plavix and aspirin. Recommend that aspirin will be discontinued in about 30 days and she go on Plavix monotherapy. I would plan to at least repeat her CT scan if not get an MRI scan with Cardiology oversight as an out-patient. I can see her in followup in my office in a few weeks. [id number]/[facility] #: [id number] [facility]
[2017-12-18] MEDS: Heparin VIAL(*) 5000 UNITS/ML VIAL (FIVE THOUSAND) SUBCUT SCH (06:20)
[2017-12-18 07:50] VITALS: BP 159/89
[2017-12-18] MEDS: Atorvastatin* 80 MG TAB PO SCH (10:03)
[2017-12-18] MEDS: Clopidogrel TAB* 75 MG PO SCH (10:03)
[2017-12-18] MEDS: Insulin LISPRO* 1 UNITS UNIT SUBCUT SCH ×2 (10:04→13:41)
[2017-12-18] MEDS: Metoprolol Tartrate TAB* 50 mg PO SCH (10:04)
[2017-12-18] MEDS: Aspirin EC TAB* 81 MG TAB.EC PO SCH (10:04)
[2017-12-18] MEDS: Insulin GLARGINE(*) 1 UNITS UNIT SUBCUT SCH (10:05)
[2017-12-18] MEDS ORDERED: Metoprolol Tartrate TAB* 25 MG PO ONE (10:54)
[2017-12-18] MEDS: Nystatin TOP POWDER* 15 GM BTL TOPICAL SCH (12:21)
--- NOTE | 2017-12-18 12:43 | PN ---
PROGRESS NOTE: DATE OF SERVICE: 12/917 PATIENT OF: Dr. Cruz and Dr. Parker. HISTORY: This 77-year-old woman who is recovering from encephalopathy possibly secondary to focal ischemia or hypertensive encephalopathy. She notes that she feels her thinking is back to baseline and has been walking without problem and is anxious to go home. Her meds are unchanged and include aspirin 81 mg a day, Plavix 75 mg a day, atorvastatin 80 mg daily, metoprolol 75 mg q. 12 hours insulin and her heparin. She has had no new complaints and review of systems is otherwise unchanged. Temperature 98.7, pulse 72, respirations 17, blood pressure 159/89, she is alert and oriented with normal speech and comprehension. Cranial nerves II through XII are intact. Motor exam revealed normal tone and strength. Chest: Clear. Cardiovascular: Regular rate and rhythm. I discussed with Bhavya, she will be going home on aspirin and Plavix with that combination for the next month or so depending on what Dr. Parker's plans are after he sees her within the next 3 or 4 weeks' time. I will, on Wednesday, discuss with him. He told me that he had just repeated the CT scan which was unchanged but did not mention it. He wanted another CT scan. In his note he said possibly getting another CT scan, I will defer to him as to what he wants to do. I do not think it would be likely to change her care by a further repeat CT scan at this point, but he knows her better, so I will defer to him. Thank you for sharing her case. [id number]/[facility] #: [id number] [place]
--- NOTE | 2017-12-18 17:21 | DS ---
CC: Yvette Morrell MD DISCHARGE SUMMARY: DATE OF ADMISSION: 12/15/17 DATE OF DISCHARGE: 12/18/17 HISTORY OF PRESENT ILLNESS: This 77-year-old woman presented with speech difficulty and confusion as she was found sitting in the driveway by her landlord. She was not sure what she was doing outside. She really did not remember much of the first day in the hospital and the previous events. She was found to be very confused in the hospital. Her speech was clear. There was no facial drooping. She was seen in consultation by Dr. Parker. Her blood pressure was quite elevated. She was felt to most likely be having hypotensive encephalopathy. The highest blood pressure reading was 213/116 re corded. The patient was monitored in the intensive care unit. Because of her pacemaker, she could not have a n MRI, but had a second CT scan. This did not show any acute lesions. EEG was done and showed hemis pheric slowing, but no epileptiform discharges. She had fairly rapid and steady improvement in her mental status. On the day of discharge, she was c leared by physical therapy to be safe to go home with her walker. She seems to have pretty good soci al support at home as well. Her blood pressure medicine was increased while she was in the hospital. FINAL DIAGNOSES: 1. Hypertensive encephalopathy. 2. Morbid obesity. 3. History of heart block. 4. Diabetes. 5. Hypertension. DISCHARGE MEDICATIONS: 1. Aspirin 81 mg daily. 2. Metoprolol tartrate 100 mg b.i.d. 3. Clopidogrel 75 mg daily. 4. Atorvastatin 80 mg daily. 5. Glargine insulin 46 units daily. 6. Losartan 50 mg daily. 7. Ergocalciferol 50,000 units weekly. 8. Amlodipine 5 mg daily. 9. Bumetanide 1 mg t.i.d. p.r.n. 10. Metformin 1000 mg b.i.d. 11. Vitamin B12 of 1000 mcg IM monthly. [id number]/[facility] #: [id number]
[2017-12-18] MEDS ORDERED: Metoprolol Tartrate TAB* 100 MG TAB PO SCH (21:00)
== END 2017-12-18 14:30 | disposition home or self-care (01) | DRG 78 ==
LOC: ED 14:54 → ICU 20:18 → MEDTELE 12-17 16:55
PROVIDERS: ADMIT Internal Medicine; ATTEND Internal Medicine
PROC: 4A00X4Z Measurement of Central Nervous Electrical Activity, External Approach (ICD-10-PCS; principal; 2017-12-16)
DX: I67.4 Hypertensive encephalopathy (principal); Z68.41 Body mass index [BMI] 40.0-44.9, adult; I16.1 Hypertensive emergency; I44.2 Atrioventricular block, complete; Z95.0 Presence of cardiac pacemaker; E66.01 Morbid (severe) obesity due to excess calories; E11.9 Type 2 diabetes mellitus without complications; I10 Essential (primary) hypertension; Z79.82 Long term (current) use of aspirin; Z79.02 Long term (current) use of antithrombotics/antiplatelets; Z79.4 Long term (current) use of insulin; Z86.718 Personal history of other venous thrombosis and embolism; Z86.711 Personal history of pulmonary embolism; G47.33 Obstructive sleep apnea (adult) (pediatric); Z88.8 Allergy status to other drugs, medicaments and biological substances; Z88.1 Allergy status to other antibiotic agents; Z82.49 Family history of ischemic heart disease and other diseases of the circulatory system; Z87.440 Personal history of urinary (tract) infections; Z86.73 Personal history of transient ischemic attack (TIA), and cerebral infarction without residual deficits; I89.0 Lymphedema, not elsewhere classified; J45.909 Unspecified asthma, uncomplicated; K57.90 Diverticulosis of intestine, part unspecified, without perforation or abscess without bleeding; R40.2362 Coma scale, best motor response, obeys commands, at arrival to emergency department; R40.2142 Coma scale, eyes open, spontaneous, at arrival to emergency department; R40.2252 Coma scale, best verbal response, oriented, at arrival to emergency department; R29.705 NIHSS score 5
CPT/HCPCS: 36415; 36600; 70450; 70496; 70498; 71045; 80048; 80053; 80061; 81003; 81015; 82140; 82565; 82607; 82803; 83036; 83605; 84443; 84484; 84520; 85025; 85610; 85652; 85730; 86140; 86850; 86900; 86901; 87086; 87641; 93005; 93306; 95816; 99284; A9270-GY; G8978-GP-CM; G8979-GP-CK; J1644; J1940; Q9967

== ENCOUNTER 2018-05-19 09:26 | Observation (INO) | payer MEDICARE ==
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
[2018-05-19 11:32] LABS: INR 0.96 (0.77-1.02)
[2018-05-19 11:40] LABS: Hematocrit 42 % (35-47); Hemoglobin 13.7 g/dl (12.0-16.0); Mean Corpuscular HGB Conc 33 g/dl (31-36); Mean Corpuscular Hemoglobin 28 pg (27-31); Mean Corpuscular Volume 85 fL (80-97); Red Blood Count 4.96 10^6/ul (4.00-5.40); Red Cell Distribution Width 15 % (10.5-15); White Blood Count 12.7 10^3/ul (3.5-10.8)
[2018-05-19 11:44] LABS: EGFR Non-African American 58.5 (>60)
[2018-05-19 12:06] LABS: ABS Basophils 0.1 10^3/ul (0-0.2); ABS Eosinophils 0 10^3/ul (0-0.6); ABS Lymphocytes 0.8 10^3/ul (1.0-4.8); ABS Monocytes 0.6 10^3/ul (0-0.8); ABS Neutrophils 11.2 10^3/ul (1.5-7.7); ABS Nucleated RBC 0 10^3/ul; Eosinophil % 0.2 % (0-6); Lymphocyte % 6.5 % (25-47); Nucleated Red Blood Cells % 0.1; Platelet Count Platelets clumped. 10^3/ul (150-450)
[2018-05-19 12:27] LABS: Urine Appearance Cloudy; Urine Blood 1+ (Negative); Urine Color Yellow; Urine Ketones Negative (Negative); Urine Protein 1+(30 mg/dL) (Negative); Urine Red Blood Cell 3+(>10/hpf) (Absent); Urine Specific Gravity 1.019 (1.010-1.030); Urine Urobilinogen Negative (Negative); Urine White Blood Cell 3+(>20/hpf) (Absent)
[2018-05-19] MEDS ORDERED: cefTRIAXone(*) 1 GM in NS 0.9% 50 ML* 50 ML IVPB ONE (12:42)
[2018-05-19] MEDS ORDERED: NS 0.9% 1000 ML*IV.FLUID IV ONE (14:07)
[2018-05-19] MEDS ORDERED: Acetaminophen TAB* 325 MG PO PRN (14:20)
[2018-05-19] MEDS ORDERED: Dextrose 50% Syringe 50 ML* 25 GM/50 ML SYRINGE IV PUSH PRN (14:20)
[2018-05-19] MEDS ORDERED: Magnesium Sulfate 2 GM IV* 2 GM/50 ML BAG IVPB ONE (14:26)
[2018-05-19] MEDS ORDERED: NS 0.9% 1000 ML* 1,000 ML IV SCH (14:30)
[2018-05-19] MEDS: Insulin LISPRO* 1 UNITS UNIT SUBCUT SCH (17:52)
[2018-05-19] MEDS ORDERED: Insulin GLARGINE(*) 1 UNITS UNIT SUBCUT SCH (18:00)
--- NOTE | 2018-05-19 20:46 | HP ---
CC: Yvtete Morrell MD * HISTORY AND PHYSICAL: DATE OF ADMISSION: 05/19/18 PRIMARY CARE PROVIDER: Yvette Morrell MD ATTENDING PHYSICIAN WHILE IN THE HOSPITAL: Latoya Stephens DO * (report dictated by Pawan Mchugh NP). CHIEF COMPLAINT: 1. Weakness. 2. Altered mental status. HISTORY OF PRESENT ILLNESS: Ms. Hooper is a 78-year-old female patient. She has a history of hypertension; diabetes; reported history of DVT and PE in the past, although the patient does not recall this; third-degree heart block, status post pacemaker; ANNA; and a history of diverticulitis in the past; and possible atrial fibrillation. She presents to the ED today. She says that she has been feeling weak for the last 6 weeks; however, it was noted today, she says that she was trying to get into her car to go see her primary, she was found by her neighbor to be confused, her car would not start, and the neighbor actually brought her into the hospital. The patient does remember this. Then she told nursing staff and I will refer you to their notes that she had told nursing staff that the patient was driving her neighbor to the doctor's office and then she had told me that she was trying to go to the doctor's office herself, so she is just confused on these events, but she does state that she has been feeling weak. She denies currently having any chest pain or shortness of breath. Denies any abdominal pain or any abdominal pressure. There have been no reports of dysuria or frequency. There have been no reports of recent medication change according to the patient. She does admit to having a cough, but she says it has been nonproductive. She denied having any rhinorrhea or sore throat. She says that she has not had any sick contacts and she says she has been taking her medications. Again, there was concern when she presented because of the altered mental status and because of this, we were asked to evaluate for admission. PAST MEDICAL HISTORY: Significant for: 1. Hypertension. 2. Diabetes. 3. In her medical records, there is reported PE and possible DVT in the past, but she does not recall this. 4. There is a reported history of AFib. 5. Third-degree heart block. 6. ANNA. 7. Diverticulitis with an abscess. PAST SURGICAL HISTORY: She has had hernia repair. She has had a pacemaker placement. HOME MEDICATIONS: Include: 1. Lipitor 80 mg daily. 2. Aspirin 81 mg daily. 3. Lantus 46 units subcu q.p.m. 4. Plavix 75 mg daily. 5. Bumex 1 mg p.o. 3 times a week as needed. 6. Glucophage 1000 mg p.o. b.i.d. 7. Losartan 50 mg daily. 8. B12 of 1000 mcg IM monthly. 9. Amlodipine 5 mg daily. 10. Toprol-XL 100 mg p.o. daily. 11. Ergocalciferol 50,000 units p.o. weekly. ALLERGIES TO MEDICATIONS: Include: 1. CLINDAMYCIN. 2. DILTIAZEM. FAMILY HISTORY: She said both her parents actually had MIs. SOCIAL HISTORY: She does not smoke. She does not drink. Surrogate decision maker is her friend, Kalpana. REVIEW OF SYSTEMS: There is no documented fever. She is denying having any significant weight changes. There is no double vision. She denies having any ear discharge. There is no rhinorrhea. There was no sore throat. She does admit to having a nonproductive cough. She denies having any chest pain. There is no orthopnea. She denied having any nocturnal dyspnea. There was no abdominal pain. She denied having any dysuria. There is no frequency. There was no seizure. She denied having any loss of consciousness. There has been no pruritus and no skin ulcerations. Review of 14 systems completed, all others negative. PHYSICAL EXAMINATION GENERAL: At this time, Ms. Hooper is a 78-year-old female patient. She is morbidly obese. She is sitting in the ED stretcher. She does not appear to be in any acute distress. VITAL SIGNS: Blood pressure 142/95, pulse 105, respirations 18, O2 sat 95%, temperature 99.2. HEENT: Head: Atraumatic and normocephalic. Eyes: EOMs are intact. Sclerae anicteric and not pale. Throat: Oral mucosa does appear to be dry. There is no oropharyngeal erythema. NECK: Supple. LUNGS: Clear to auscultation. No wheezes, rales, or rhonchi. HEART: Sounds S1, S2. She is tachycardic. There were no murmurs, rubs, or gallops. ABDOMEN: Soft. It was flat. It was nontender. The bowel sounds were present. No CVA tenderness. EXTREMITIES: Pulses were 2+ throughout. She did have some mild pitting edema to the top of her feet bilaterally. She is able to move all 4 extremities with 5/5 strength. NEUROLOGIC: She is actually awake and alert to time, place. She knows it is May, she knows she is in the hospital, and she knows her name. Her it software developer were equal. Tongue was midline. She had no facial drooping. There were no obvious focal deficits. SKIN: Intact. DIAGNOSTIC STUDIES/LAB DATA: The labs today are revealing WBC of 12.7, RBC of 4.96, hemoglobin of 13.7, hematocrit of 42, and the platelet count actually was clumped. The INR was 0.96. Blood gas; pH is 7.37 and her pCO2 was 41, bicarb was 23. On chemistry, sodium was 133, potassium 4.1, chloride of 101, bicarb 21 , her BUN was 15, creatinine of 0.93, glucose was 283, lactic 1.5, calcium 10, mag 1.5. Total bili 0.7, AST 19, ALT 18, alk phos 130. Ammonia was 46. CK 95. Troponin was 0.04, which is near her baseline. Her CRP was 40. TSH was normal. Urine showed positive nitrites, 3+ leukocyte esterase, 3+ wbc's, 3+ rbc 's, 3+ bacteria. Toxicology screening negative. She did have a chest x-ray, which showed pulmonary vascular congestion. No active cardiopulmonary disease. CT brain showed no evidence for acute intracranial abnormality. She did have an EKG obtained today showing a sinus tachycardia, rate of 106. She did have depression in lead I. She had no ST elevation. 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 Reviewed the previous EKG, it is similar to that with the exception there is a new depression in lead I only, she was tachycardic previously as well. She just had an echo in December of this year, which showed EF greater than 65% and abnormal diastolic function. Old medical records were reviewed. ASSESSMENT AND PLAN: Ms. Hooper is a 78-year-old female patient coming into the ED today with complaints of weakness, not feeling well and confusion, on evaluation found to have urinary tract infection. She will be admitted under observation status for: 1. Altered mental status. I suspect this is probably secondary to urinary tract infection. She is showing signs of sepsis with white count and tachycardia. She is getting a 30 cc/kg bolus here in the ED. Blood cultures were sent. Urine cultures were sent. She did receive antibiotics, which I will continue and will continue the Rocephin and hopefully, as the urinary tract infection resolves her mentation will improve. If it does not, we will need to consider getting possibly Neurology involved, but we will monitor. 2. Urinary tract infection. Again, we will place her on Rocephin. 3. Hypertension. Last blood pressure was 126/84. For her, that is on the lower side. When she was here in December, she was running in the 200s, so I am actually going to hold her meds with the exception of her beta-patricia. I will give that with hold parameters. 4. Diabetes. We will put her on a lispro sliding scale and Lantus. 5. History of deep venous thrombosis and pulmonary embolism. I will place her on appropriate prevention in the form of heparin subcu. 6. Atrial fibrillation. She appears to be sinus tachy. We will continue her beta- patricia with hold parameters. 7. History of third-degree heart block. She has a pacemaker. 8. Obstructive sleep apnea. I did order her CPAP. 9. History of diverticulitis. Again, not an active issue now. 10. Code status: Full code. 11. Fluids, electrolytes, nutrition: She can have a consistent carb diet. 12. DVT prophylaxis: She will be placed on heparin subcu. TIME SPENT: Time spent on the admission was 60 minutes, greater than half of the time was spent [id number] with the patient obtaining my history and physical, other half of the time was spent going over the plan of care with the patient and implementing plan of care. I did discuss the plan of care with my attending, Dr. Stephens; she is in agreement. PAWAN MCHUGH, WU [id number]/[facility] #: [id number] LEXIS
[2018-05-19] MEDS: Metoprolol Tartrate TAB* 25 MG PO SCH (21:23)
[2018-05-19] MEDS: Nystatin TOP POWDER* 15 GM BTL TOPICAL SCH (21:24)
[2018-05-19] MEDS: Heparin VIAL(*) 5000 UNITS/ML VIAL (FIVE THOUSAND) SUBCUT SCH (21:25)
[2018-05-20] MEDS: Heparin VIAL(*) 5000 UNITS/ML VIAL (FIVE THOUSAND) SUBCUT SCH (05:04)
[2018-05-20 06:09] LABS: ABS Basophils 0 10^3/ul (0-0.2); ABS Eosinophils 0.1 10^3/ul (0-0.6); ABS Lymphocytes 1.3 10^3/ul (1.0-4.8); ABS Monocytes 0.8 10^3/ul (0-0.8); ABS Neutrophils 5.9 10^3/ul (1.5-7.7); ABS Nucleated RBC 0 10^3/ul; Eosinophil % 1.4 % (0-6); Hematocrit 37 % (35-47); Hemoglobin 12.1 g/dl (12.0-16.0); Lymphocyte % 15.8 % (25-47); Mean Corpuscular HGB Conc 33 g/dl (31-36); Mean Corpuscular Hemoglobin 28 pg (27-31); Mean Corpuscular Volume 84 fL (80-97); Mean Platelet Volume 7.3 fL (7.4-10.4); Nucleated Red Blood Cells % 0; Platelet Count 272 10^3/ul (150-450); Red Blood Count 4.33 10^6/ul (4.00-5.40); Red Cell Distribution Width 15 % (10.5-15); White Blood Count 8.1 10^3/ul (3.5-10.8)
[2018-05-20 06:38] LABS: EGFR Non-African American 66.7 (>60)
[2018-05-20] MEDS ORDERED: Atorvastatin* 80 MG TAB PO SCH (09:00)
[2018-05-20] MEDS ORDERED: Aspirin 81 mg CHEW TAB* 81 MG TAB.CHEW PO SCH (09:00)
[2018-05-20] MEDS ORDERED: Clopidogrel TAB* 75 MG PO SCH (09:00)
[2018-05-20] MEDS: Insulin LISPRO* 1 UNITS UNIT SUBCUT SCH ×2 (09:02→12:37)
[2018-05-20] MEDS: Metoprolol Tartrate TAB* 25 MG PO SCH (09:02)
[2018-05-20] MEDS: Nystatin TOP POWDER* 15 GM BTL TOPICAL SCH (09:02)
[2018-05-20 12:00] VITALS: BP 147/70
[2018-05-20] MEDS ORDERED: cefTRIAXone(*) 1 GM in NS 0.9% 50 ML* 50 ML IVPB SCH (13:00)
--- NOTE | 2018-05-21 08:31 | DS ---
AMENDED REPORT NOW INCLUDES COSIGNER DESIGNATION CC: Yvette Morrell MD * DISCHARGE SUMMARY: DATE OF ADMISSION: 05/19/18. DATE OF DISCHARGE: 05/20/18. PRIMARY CARE PROVIDER: Yvette Morrell MD. ATTENDING PHYSICIAN: Dr. Olvera * (dictated by Shilpi Bains NP). PRIMARY DIAGNOSES: 1. Altered mental status. 2. Urinary tract infection. SECONDARY DIAGNOSES: 1. Hypertension. 2. Diabetes mellitus type 2. 3. Atrial fibrillation. 4. Obstructive sleep apnea. STUDIES WHILE IN THE HOSPITAL: 1. Chest x-ray on 05/19/18, reveals pulmonary vascular congestion. No active cardiopulmonary disease. 2. Brain CT on 05/19/18 reads as no evidence for acute intracranial abnormality. HISTORY OF PRESENT ILLNESS AND HOSPITAL COURSE: Ms. Hooper is a 78-year-old female with a history of hypertension, diabetes, reported history of DVT and PE , third-degree heart block status post pacemaker, obstructive sleep apnea, and atrial fibrillation, who presented to the emergency room on 05/19/18 with complaints of weakness and altered mental status. Please see the history and physical by Pawan Mchugh NP for a complete summary of the events leading up to this hospitalization; but in short, the patient was brought in by her neighbor who found her confused. Apparently, the patient reported to her neighbor that she was trying to get to her doctor's office though she was unable to start her car. Upon arrival to the emergency room, the patient denied any complaints. She was admitted by the hospitalist service. The patient was found to have a urinary tract infection with a UA significant for leukocyte esterase, wbc's, bacteria, and nitrites. Culture is still pending at the time of this dictation. It was presumed that her altered mental status was secondary to her urinary tract infection. She did meet sepsis criteria on admission with an elevated white blood count and tachycardia and was given appropriate IV fluids. The patient had an uneventful night. This morning, the patient reports feeling well. She does report to me that she feels as though she may have been slightly confused yesterday but she does remember the events prior to and after arriving in the emergency room. She is completely oriented this morning and able to answer all questions appropriately. She was seen by physical therapy for evaluation who felt as though the patient had no acute PT needs and was functioning at her baseline. The patient reports that she was feeling weak a few days ago though this morning she no longer feels weak. Her blood pressure has remained stable throughout the hospitalization. White blood count improved today to 8.1. Blood glucose has been mildly elevated. She was monitored on telemetry and was noted to be in normal sinus rhythm for the duration of her stay. Ms. Hooper was stable for discharge today. Vital signs are as follows. Temp 98.1, heart rate 81, respiratory rate 16, oxygen saturation 96% on room air, blood pressure 147/70. DISCHARGE MEDICATIONS: New home medications: 1. Bactrim DS 800/160 one tab p.o. b.i.d. for 6 days. Continued home medications: 1. Amlodipine 5 mg p.o. daily. 2. Aspirin 81 mg p.o. daily. 3. Atorvastatin 80 mg p.o. daily. 4. Bumex 1 mg p.o. 3 times a week p.r.n. 5. Clopidogrel 75 mg p.o. daily. 6. Vitamin B12 at 1000 mcg IM monthly. 7. Vitamin D 50,000 units p.o. weekly. 8. Glargine 46 units subcutaneous at bedtime. 9. Losartan 50 mg p.o. daily. 10. Metformin 1000 mg p.o. b.i.d. 11. Metoprolol succinate 100 mg p.o. daily. DISCHARGE PLAN: Ms. Hooper will be discharged to home. Activity will be as tolerated. Diet will be diabetic. Medications are noted above. The patient has been prescribed a 6-day course of Bactrim to complete a total of 7 days of antibiotic therapy. Her urine culture is still pending at this time. She should follow up with her PCP in 4 to 7 days. She has been instructed to return to the emergency room or nearest hospital for an worsening of symptoms, shortness of breath, lightheadedness, dizziness, chest discomfort, high fever, chills, night sweats, loss of consciousness, or any other worrisome signs or symptoms. This is a summarized report of a complex medical history and hospital stay. For further details, please see the entire medical record. TIME SPENT: Approximately 40 minutes was spent on this discharge, greater than half of that time was spent [id number] with patient discussing discharge plans and instructions. SHILPI BAINS, FAGOT HEATER [id number]/[facility] #: [id number] LEXIS
== END 2018-05-20 15:04 | disposition home or self-care (01) ==
LOC: ED 09:26 → MEDTELE 14:17
PROVIDERS: ADMIT Hospitalist; ATTEND Internal Medicine
DX: R41.82 Altered mental status, unspecified (principal); N39.0 Urinary tract infection, site not specified; I10 Essential (primary) hypertension; E11.9 Type 2 diabetes mellitus without complications; I48.91 Unspecified atrial fibrillation; G47.33 Obstructive sleep apnea (adult) (pediatric); Z79.82 Long term (current) use of aspirin; K57.92 Diverticulitis of intestine, part unspecified, without perforation or abscess without bleeding; R53.1 Weakness
CPT/HCPCS: 36415; 70450; 71045; 80048; 80053; 80307; 80320; 80329; 81003; 81015; 82140; 82550; 82803; 83605; 83735; 84443; 84484; 85025; 85610; 85730; 86140; 87040; 87077; 87086; 87186; 87899; 93005; 94660; 96361; 96365; 96366; 96375; 99285; A9270-GY; G0378; G0480; G8978-GP-CH; G8979-GP-CH; G8980-GP-CH; J0696; J1644; J3475

== ENCOUNTER 2019-07-18 13:49 | Inpatient (IN) | payer MEDICARE ==
--- NOTE | 2019-07-18 14:15 | ED ---
Complex/Multi-Sys Presentation - HPI Summary HPI Summary: The patient is a 79 y/o F arriving by ambulance to [facility] with a chief complaint of an episode of dizziness this afternoon that resolved. Per EMS, the patient stated that she had been at [facility], and her car would not start, so she got a ride home. While trying to get help from her neighbor, she had to sit down because she became dizzy. EMS then arrived, and the patient did not initially want to come to the ED. In the ED, she states that she has not been medication-compliant because she sometimes gets confused because she is prescribed multiple medications so it is a lot to keep track of. She feels normal now, and she does not have any complaints including pain, weakness, vomiting, diarrhea, fever, or vision changes. She has chronic edmea but states is not worse than usual. She is not on O2 at home, and she does not have any pulmonary issues to her knowledge, although she is a former smoker, and her medical records indicate asthma, PE, and sleep apnea. EMS reports BG of 240. She has been able to answer all questions appropriately for EMS. PMHx: DM, congenital heart disease, DVT, HLD, HTN, pacemaker, diverticulosis, seizures, TIA. Occasional EtOH, no substance use. Medications reviewed. Allergies noted. - History Of Current Complaint Chief Complaint: EDWeakness Time Seen by Provider: 07/18/19 13:54 Hx Obtained From: Patient, EMS, Medical Records Onset/Duration: Sudden Onset, Resolved Timing: Minutes Severity Currently: None Severity Initially: Moderate Aggravating Factor(s): nothing Alleviating Factor(s): nothing Associated Signs And Symptoms: Positive: Dizziness. Negative: Vomiting, Diarrhea, Fever, Other - myalgia, arthralgia, vision changes - Allergies/Home Medications Allergies/Adverse Reactions: Allergies Allergy/AdvReac Type Severity Reaction Status Date / Time clindamycin Allergy Intermediate Rash Verified 01/05/18 16:55 diltiazem Allergy Intermediate Rash Verified 01/05/18 16:55 Home Medications: Home Medications Atorvastatin* [Lipitor*] 40 mg PO DAILY 07/18/19 [History Confirmed 07/18/19] Metformin ER (NF) [Glucophage ER 750 MG TAB (NF)] 1,500 mg PO DAILY 07/18/19 [ History Confirmed 07/18/19] PMH/Surg Hx/FS Hx/Imm Hx Endocrine/Hematology History: Reports: Hx Diabetes Denies: Hx Systemic Lupus Erythematosus Cardiovascular History: Reports: Hx Congenital Heart Disease - in records with [employer]aver [employer], pt unsure of name of defect, Hx Deep Vein Thrombosis, Hx Hypercholesterolemia, Hx Hypertension, Hx Pacemaker/ICD - [employer] PACEMAKER - A2DR01 ADVISRaghav ALLEN Denies: Hx Congestive Heart Failure Respiratory History: Reports: Hx Asthma, Hx Pulmonary Embolism, Hx Sleep Apnea GI History: Reports: Hx Diverticulosis, Hx Hiatal Hernia, Other GI Disorders - hernia repair History: Reports: Other Problems/Disorders - frequent UTIs Musculoskeletal History: Denies: Hx Rheumatoid Arthritis Sensory History: Reports: Hx Contacts or Glasses Denies: Hx Hearing Aid Opthamlomology History: Reports: Hx Contacts or Glasses Neurological History: Reports: Hx Seizures, Hx Transient Ischemic Attacks (TIA) , Other Neuro Impairments/Disorders - previous episode of near syncope Psychiatric History: Denies: Hx Panic Disorder - Cancer History Hx Chemotherapy: No Hx Radiation Therapy: No - Surgical History Surgical History: Yes Surgery Procedure, Year, and Place: [employer] PACEMAKER - A2DR01 ADVISRaghav ALLEN - [facility]. hernia repair. 1991 diverticulitis/peritonitis sx - Immunization History Date of Tetanus Vaccine: unsure Date of Influenza Vaccine: never Infectious Disease History: No Infectious Disease History: Denies: Traveled Outside the [place] in Last 30 Days - Family History Known Family History: Negative: Cardiac Disease - Social History Alcohol Use: Occasionally Alcohol Amount: A GLASS OF WINE A WEEK Hx Substance Use: No Substance Use Type: Reports: None Hx Tobacco Use: No Smoking Status (MU): Former Smoker Review of Systems Negative: Fever Negative: Other - vision changes Negative: Vomiting, Diarrhea Negative: Arthralgia, Myalgia Neurological: Other - dizziness Negative: Weakness All Other Systems Reviewed And Are Negative: Yes Physical Exam - Summary Physical Exam Summary: Constitutional: Well-developed, Well-nourished, Alert. (-) Distressed Skin: Warm, Dry HENT: Normocephalic; Atraumatic Eyes: Conjunctiva normal Neck: Musculoskeletal ROM normal neck. (-) JVD, (-) Stridor, (-) Tracheal deviation Cardio: Rhythm regular, rate normal, Heart sounds normal; Intact distal pulses. Radial pulses are 2+ and symmetric. (-) Murmur Pulmonary/Chest wall: Effort normal. (-) Respiratory distress, (-) Wheezes, (-) Rales Abd: Soft. (-) Tenderness, (-) Distension, (-) Guarding, (-) Rebound Musculoskeletal: (+) 3+ Peripheral edema bilaterally Lymph: (-) Cervical adenopathy Neuro: Alert, Oriented x3, Strength normal, Cranial nerves II-XII are grossly intact. (-) Dysmetria, (-) Nystagmus, (-) Ataxia by finger to nose testing, (-) Sensory deficit. NIH: 0. GCS: 0. Psych: Mood and affect Normal Triage Information Reviewed: Yes Vital Signs On Initial Exam: Initial Vitals Temp Pulse Resp BP Pulse Ox 98.3 F 113 24 137/86 90 07/18/19 13:53 07/18/19 13:53 07/18/19 13:53 07/18/19 13:53 07/18/19 13:53 Vital Signs Reviewed: Yes - Addy Coma Scale Best Eye Response: 4 - Spontaneous Best Motor Response: 6 - Obeys Commands Best Verbal Response: 5 - Oriented Coma Scale Total: 15 Procedures - Sedation Patient Received Moderate/Deep Sedation with Procedure: No Diagnostics - Vital Signs Vital Signs Temp Pulse Resp BP Pulse Ox 07/18/19 13:53 98.3 F 113 24 137/86 90 - Laboratory Result Diagrams: 07/18/19 14:24 07/18/19 14:24 Lab Statement: Any lab studies that have been ordered have been reviewed, and results considered in the medical decision making process. - Radiology CXR Radiology Interpretation Completed By: Radiologist Summary of Radiographic Findings: Interval appearance of patchy density overlying the lateral right upper lung could be infiltrate at or pulmonary edema according to the patient's clinical presentation. ED physician has reviewed this report. - CT Brain CT CT Interpretation Completed By: Radiologist Summary of CT Findings: Impression: 1. No acute intracranial process evident. 2. Involutional change and stigmata of probable chronic small vessel ischemic disease. ED physician has reviewed this report. - EKG 1359 Cardiac Rate: Tachycardia - 112 bpm EKG Rhythm: Sinus Tachycardia EKG Comparison: Other - New ST changes from previous on 05/19/18 Summary of EKG Findings: Sinus tachycardia at [address] elevations in III and aVF. ED physician has reviewed and interpreted this EKG. 1523 Cardiac Rate: Tachycardia - 113 bpm EKG Rhythm: Sinus Tachycardia EKG Comparison: No Significant Change - Similar to initial at 1359. Summary of EKG Findings: Sinus tachycardia at [address] elevations in III and aVF. ED physician has reviewed and interpreted this EKG. National Institutes Of Health - NIH Scale Level of Consciousness: Alert/Keenly Responsive Ask Patient the Month and His/Her Age: Both Correct Ask Pt to Open/Close Eyes and Breast Puller/Release Non-Paretic Hand: Both Correctly Best Gaze (Only Horizontal Eye Movement): Normal Visual Field Testing: No Visual Loss Facial Paresis-Pt to Smile & Close Eyes or Grimace Symmetry: Normal/Symmetrical Motor Function - Right Arm: No Drift-Holds 10 Seconds Motor Function - Left Arm: No Drift-Holds 10 Seconds Motor Function - Right Leg: No Drift-Holds 10 Seconds Motor Function - Left Leg: No Drift-Holds 10 Seconds Limb Ataxia-Must be out of Proportion to Weakness Present: Absent Sensory (Use Pinprick to Test Arms/Legs/Trunk/Face): Normal Best Language (Describe Picture, Name Items): No Aphasia Dysarthria (Read Several Words): Normal Extinction and Inattention: No Abnormality Total Score: 0 Complex Multi-Symp Course/Dx Course Of Treatment: Patient is here with altered mental status and episode of dizziness. Patient has similar presentation and May 2018 and at least 1 more so presentations in the past. Patient has no complaints at this time and has an NIH stroke scale 0. Patient had blood performers and elevated troponin 0.06. Patient does have some concave down ST elevations in the inferior leads which are new from prior EKG. However, patient has no chest pain or shortness of breath so she does not have a STEMI clinically. Patient had a negative CT scan of her brain for any acute changes. Patient is admitted to hospitalist for further workup of her symptoms. - Diagnoses Provider Diagnoses: NSTEMI (non-ST elevated myocardial infarction), Weakness, New onset of congestive heart failure, Pulmonary edema - Physician Notifications Discussed Care Of Patient With: Diamond Shepard - hospitalist Time Discussed With Above Provider: 15:30 Instructed by Provider To: Other - I discussed the patients case with Dr. Shepard , who accepts the patient for admission. Discharge ED - Sign-Out/Discharge Documenting (check all that apply): Patient Departure - Patient accepted for admission by Dr. Shepard. - Discharge Plan Condition: Stable Disposition: ADMITTED TO [facility] - Billing Disposition and Condition Condition: STABLE Disposition: Admitted to [facility] - Attestation Statements Document Initiated by Lawrence: Yes Documenting Scribe: Alka Forbes Provider For Whom Lawrence is Documenting (Include Credential): Dr. Joe Milton MD Scribe Attestation: Alka Sierra scribed for Dr. Joe Milton MD on 07/18/19 at 2118. Scribe Documentation Reviewed: Yes Provider Attestation: The documentation as recorded by the Alka pruitt accurately reflects the service I personally performed and the decisions made by me, Dr. Joe Milton MD Status of Scribe Document: Viewed
[2019-07-18] MEDS ORDERED: NS 0.9% 1000 ML** 1,000 ML IV ONE (14:27)
[2019-07-18 14:42] LABS: ABS Lymphocytes 0.7 10^3/ul (1.0-4.8); ABS Monocytes 0.8 10^3/ul (0-0.8); ABS Neutrophils 11.1 10^3/ul (1.5-7.7); Eosinophil % 0.1 %; Hematocrit 43 % (35-47); Hemoglobin 14.2 g/dL (12.0-16.0); Lymphocyte % 5.3 %; Mean Corpuscular HGB Conc 33 g/dL (31-36); Mean Corpuscular Hemoglobin 28 pg (27-31); Mean Corpuscular Volume 86 fL (80-97); Mean Platelet Volume 9.3 fL (7.4-10.4); Platelet Count 101 10^3/uL (150-450); Red Blood Count 5.03 10^6 /uL (3.70-4.87); Red Cell Distribution Width 15 % (10-15); White Blood Count 12.6 10^3/uL (3.5-10.8)
[2019-07-18 14:53] LABS: Troponin I 0.06 ng/mL (<0.03)
[2019-07-18] MEDS ORDERED: Aspirin 81 mg CHEW TAB* 81 MG TAB.CHEW PO ONE (14:58)
[2019-07-18 15:10] LABS: Albumin 3.5 g/dL (3.2-5.2); Magnesium 1.7 mg/dL (1.9-2.7); TSH (Thyroid Stimulating Horm) 2.04 mcIU/mL (0.34-5.60)
[2019-07-18] MEDS ORDERED: Magnesium Sulfate 2 GM IV* 2 GM/50 ML BAG IVPB ONE (15:14)
[2019-07-18 15:16] LABS: ALT 22 U/L (7-52); AST 15 U/L (13-39); Albumin/Globulin Ratio 1.2 (1-3); Alkaline Phosphatase 129 U/L (34-104); Anion Gap 18 mmol/L (2-11); BUN/Creatinine Ratio 19.1 (8-20); Blood Urea Nitrogen 18 mg/dL (6-24); CO2 Carbon Dioxide 17 mmol/L (22-32); Chloride 101 mmol/L (101-111); EGFR African American 69.7 (>60); EGFR Non-African American 57.6 (>60); Globulin 2.9 g/dL (2-4); Glucose 240 mg/dL (70-100); Potassium 3.2 mmol/L (3.5-5.0); Sodium 136 mmol/L (135-145); Total Protein 6.4 g/dL (6.4-8.9)
[2019-07-18] MEDS ORDERED: Metoprolol Succinate XL TAB* 100 MG PO ONE (15:19)
[2019-07-18] MEDS ORDERED: Potassium Chlor TAB* 20 MEQ TAB.ER PO ONE (17:04)
[2019-07-18 17:20] LABS: Urine Appearance Turbid; Urine Bilirubin Negative (Negative); Urine Blood 2+ (Negative); Urine Color Amber; Urine Glucose Negative (Negative); Urine Ketones Negative (Negative); Urine Nitrite Negative (Negative); Urine Protein 2+(100 mg/dL) (Negative); Urine Specific Gravity 1.016 (1.010-1.030); Urine Urobilinogen Negative (Negative)
[2019-07-18 17:28] LABS: Urine Bacteria 3+ (Absent); Urine Red Blood Cell 2+(6-10/hpf) (Absent); Urine Squamous Epithelial Cell Present (Absent); Urine White Blood Cell 3+(>20/hpf) (Absent)
[2019-07-18] MEDS ORDERED: Acetaminophen TAB* 325 MG PO PRN (17:49)
[2019-07-18 18:06] LABS: C Reactive Protein 142.35 mg/L (<8.01)
[2019-07-18] MEDS ORDERED: Dextrose 50% VIAL 50 ml IV PUSH PRN (18:06)
[2019-07-18 18:29] LABS: Troponin I 0.07 ng/mL (<0.03)
[2019-07-18] MEDS: cefTRIAXone(*) 1 GM in NS 0.9% 50 ML* 50 ML IVPB SCH (19:29)
[2019-07-18] MEDS: Enoxaparin(*) 40 MG/0.4 ML SYR SUBCUT SCH (19:32)
--- NOTE | 2019-07-18 21:15 | HP ---
HISTORY AND PHYSICAL: ADDENDUM: Elevated troponin. The patient does have an elevated troponin of 0.06 and 0.07. I suspect this is related to demand ischemia from underlying urinary tract infection and sepsis. We will continue to trend her troponins. I will repeat an EKG in the a.m. If her troponin continues to trend upward, I will recommend a transthoracic echocardiogram and consultation to Cardiology. CHERRY COSBY, WU [id number]/[facility] #: [id number] [id number]
[2019-07-18] MEDS: Insulin LISPRO* 1 UNITS UNIT SUBCUT SCH (22:05)
[2019-07-18] MEDS: Nystatin TOP POWDER* 15 GM BTL TOPICAL SCH (22:06)
[2019-07-18 22:15] LABS: Troponin I 0.07 ng/mL (<0.03)
--- NOTE | 2019-07-18 23:29 | HP ---
ADDENDUM NOW INCLUDED ON THIS REPORT CC: Yvette Morrell MD * HISTORY AND PHYSICAL: DATE OF ADMISSION: 07/18/19 PROVIDER: Lubna Amin NP PRIMARY CARE PROVIDER: Yvette Morrell MD ATTENDING PHYSICIAN WHILE IN THE HOSPITAL: Dr. Diamond Shepard * (dictated by Lubna Amin NP). CHIEF COMPLAINT: Confusion. HISTORY OF PRESENT ILLNESS: Ms. 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 When the patient was asked why she was brought to the emergency room, the patient reports that she had an episode of dizziness that lasted approximately 2 seconds and her friend called EMS and she was brought to the emergency room for evaluation. When the patient was questioned about her trip to [employer] today, the patient could not remember going to [facility] or what happened while she was at [facility] other than her friend had to bring her home. When the patient was questioned about taking her home medications, the patient reports that she takes them approximately 4 times a week. When the patient was asked when she took her medications last, she said yesterday and when inquired what day she took her medications prior to yesterday , she replied "I don't know." When the patient was questioned about eating, the patient reports that she eats 1 meal a day and that she reports she just does not feel like eating. When discussing with the patient about her increased confusion and not being able to answer questions, the patient states "you are asking me unfamiliar questions that I am not used to." Her friend and healthcare proxy, Kalpana, did present to the emergency room and was able to give further information in regards to the history of present illness. Kalpana reports that the patient has been confused for a long time and is unable to properly care for herself at home. She often drives to [employer] on a daily basis and orders one meal. Kalpana reports that she eats a few bites of the meal and then leaves the rest on the table. Often, she comes to the house and there is fruit flies and food sitting out that is uneaten. She reports that the patient does not shower very often. She also reports that she has had a confusion for a long period of time. She does report that the patient was recently seen by her primary care provider in June. At that time, she was prescribed an antibiotic for urinary tract infection. Kalpana does report that the patient did not complete or take all of these antibiotics. Kalpana reports that today the patient went to the [employer] and she was unable to figure out how to start her car, so a friend brought her back home and upon returning home, the patient was unable to get up 2 steps into her house, so they called the ambulance due to her weakness and increased confusion. While in the emergency room, the patient had routine lab work drawn. She had a urinalysis which is consistent with underlying urinary tract infection. Her CRP was elevated at 142. Troponin was 0.06 and repeat was 0.07. She did have an elevated blood glucose at 240 and her magnesium was 1.7 and potassium was 3.2. The patient did have a mildly elevated white count of 12.6. Due to these findings, Hospital Medicine was asked to see and evaluate her for admission. PAST MEDICAL HISTORY: Obtained from her old records as when the patient was asked about medical history, she responded "I do not know." Per her old records , the patient has a history of hypertension, type 2 diabetes. There is a report of possible PE/DVT in the past. There is a report of history of atrial fibrillation. There is a history if incomplete heart block with pacemaker placement. There is a reported history of obstructive sleep apnea and diverticulitis. PAST SURGICAL HISTORY: Again was obtained from old records. She had a hernia repair and a pacemaker placement. HOME MEDICATIONS: Her home medications need to be verified with her primary care provider. It is unclear what medications she is taking at this time. The patient does not know what medicines she takes and reports that she only takes some periodically up to 4 times a week, but is unclear if she takes all of her medications. The patient does report that she does have confusion on what medications to take. When Kalpana was questioned about her medications, she does report that the patient does not take her Lantus insulin as she does not know how to use the pen. ALLERGIES: She has reported allergy from old records to CLINDAMYCIN and DILTIAZEM. FAMILY HISTORY: Unknown due to the patient's confusion. Per the old records, parents have history of MIs, but this is again unclear. SOCIAL HISTORY: The patient does not smoke. She does not drink. No illicit drug use. She currently lives alone. She is a full code. Surrogate decision maker in the events she is unable to make her own decisions is her nephew, Pawan. Her healthcare proxy is her friend, Kalpana. REVIEW OF SYSTEMS: There has been no documented fever. The patient denies any chest pain or shortness of breath. She denies any cough or congestion. She denies any fever or chills. She denies any abdominal pain, nausea, vomiting or diarrhea. She denies any pain. She denies any history of shortness of breath or nocturnal dyspnea. She did report a brief episode of dizziness lasting approximately 2 seconds. She denies any skin ulcerations. A 14-point review of systems was completed. All others were negative. PHYSICAL EXAMINATION GENERAL: At this time, Ms. Hooper is a 79-year-old female. She is morbidly obese, sitting on the stretcher in the emergency room. She is not in any acute distress. VITAL SIGNS: Blood pressure 152/94, heart rate 102, respirations are 17 to 23, O2 saturation is 94% on 2 L, temperature is 98.3. HEENT: Head is atraumatic, normocephalic. Eyes: EOMs are intact. Sclerae anicteric and not pale. Oral mucosa is dry. Conjunctivae are dry. NECK: Supple. LUNGS: Clear to auscultation bilaterally with diminished breath sounds in the bases. CARDIAC: S1, S2. She is tachycardic. There are no rubs, murmurs, or gallops. ABDOMEN: Obese, soft, nontender. Bowel sounds are present x4. There is no CVA tenderness. EXTREMITIES: Pedal pulses are +2. She does have 1+ pitting edema to her bilateral lower extremities. NEUROLOGIC: She is awake, alert, and oriented x3. She knows the year. She knows she is in the hospital. She knows she is in [place]. She knows the president is Trump. Her tongue is midline. She is confused to situation and current events. SKIN: She does have significant excoriation noted to her lower abdominal folds under bilateral breasts and into her peritoneal area, which is all significantly excoriated and noted to have foul odor as well. DIAGNOSTIC STUDIES/LAB DATA: WBCs are 12.6, RBCs 5.03, hemoglobin 14.3, hematocrit is 43, platelet count 101. Absolute neutrophils are 11.1, absolute lymphs are 0.7. Sodium 136, potassium 3.2, chloride 101, carbon dioxide 17, anion gap was 18, BUN 18, creatinine 0.94, glucose 240, calcium 9.0, magnesium 1.7. Total bilirubin 1.10, ASTs 15, ALTs were 22, alkaline phosphatase was 129. Troponin was 0.06, repeat was 0.07. C-reactive protein was 142.35. BNP was 1084. TSH was 2.04. Urine; pH was 6, specific gravity 1.016, protein was 2 +, ketones were negative, blood was 2+, nitrites were negative, bilirubin and urobilinogen were all negative. Leukocyte esterase was 3+, WBCs 3+, RBCs 2+, squamous epithelial cells were present and bacteria was 3+. Chest x-ray: Interval appearance of patchy density overlying the right lateral lung, could be infiltrate or pulmonary edema according to the patient's clinical presentation. She did have a CT of the brain, radiologist's impression: No acute intracranial process was evident, involutional change, stigmata of her probable chronic small vessel ischemic disease. She had an electrocardiogram, which showed sinus tachycardia at a rate of 113. 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 ASSESSMENT AND PLAN: Ms. Hooper is a 79-year-old female, who presented to the emergency room today with complaints of brief episode of dizziness and confusion, found to have underlying urinary tract infection and she will be admitted under observation for: 1. Altered mental status. I suspect this is secondary to underlying urinary tract infection. The patient is meeting sepsis with leukocytosis, tachycardia and tachypnea with suspected source of urine. The patient was given 1000 cc of normal saline in the emergency room. Her lactic acid is not elevated. She did have blood cultures sent that are currently pending and we will treat her with ceftriaxone 1 g IV q.24 hours for her urinary tract infection. I suspect that the patient has some underlying undiagnosed dementia as well that has been exacerbated by her underlying urinary tract infection as the friend and healthcare proxy report that the patient has been confused for a long period of time. I will get Speech Therapy to do a cognitive evaluation of this patient and I have also requesting social work consult as the patient may not be safe to return to her current residence given her level of confusion and needing for assisted living. 2. Urinary tract infection. She will be placed on Rocephin. The patient recently had a urinary tract infection on 06/21/19. At that time, it grew Klebsiella pneumoniae, which was susceptible to ceftriaxone. 3. Hypertension. The patient's blood pressure has been elevated at 150s/90s. It is unclear if the patient takes her medications at home. She did receive metoprolol 100 mg in the emergency room. I am going to hold her medications until they are verified by her primary care provider in the morning. Should her blood pressure become over 180, we could consider adding hydralazine IV as needed for systolic blood pressure greater than 180. 4. Type 2 diabetes. I am going to place her on fingersticks and lispro sliding scale. I am going to hold her Lantus; it appears that the patient is not taking her Lantus at home. 5. History of deep vein thrombosis. Not on anticoagulation. I will place her on DVT prophylaxis dosing of Lovenox subcu. 6. Thrombocytopenia. The patient does have thrombocytopenia with a platelet count of 101. We will continue to monitor this as this does appear to be new. This could be reactive to her underlying urinary tract infection. Will repeat CBC in the AM and monitor platelet count. 7. History of atrial fibrillation. The patient is currently in sinus rhythm. I am going to continue her beta-patricia as previously prescribed, which is metoprolol 100 mg p.o. daily. Again, this will need to be verified by her primary care provider in the a.m. 8. History of third-degree heart block. The patient does have a pacemaker. 9. FEN: She can have a consistent carb diet. 10. DVT prophylaxis: I placed her on Lovenox subcu q.24 hours, will need to monitor platelet count. 11. Code status: She is a full code. TIME SPENT: Time spent on this admission was 60 minutes, greater than half of that time was spent [id number] with the patient obtaining my history and physical, the other half time was spent going over my plan of care and implementing my plan of care. I have discussed this with my attending, Dr. Diamond Shepard, she is in agreement with my plan. LUBNA AMIN NP ADDENDUM: Elevated troponin. The patient does have an elevated troponin of 0.06 and 0.07. I suspect this is related to demand ischemia from underlying urinary tract infection and sepsis. We will continue to trend her troponins. I will repeat an EKG in the a.m. If her troponin continues to trend upward, I will recommend a transthoracic echocardiogram and consultation to Cardiology. LUBNA AMIN NP [id number]/CPS #: [id number]/CPS #: [id number] LEXIS
[2019-07-19 07:01] LABS: BUN/Creatinine Ratio 20.9 (8-20); Calcium 8.6 mg/dL (8.6-10.3); EGFR African American 72.3 (>60); EGFR Non-African American 59.8 (>60); Potassium 3.4 mmol/L (3.5-5.0)
[2019-07-19 07:43] LABS: ABS Basophils 0.1 10^3/ul (0-0.2); ABS Eosinophils 0.1 10^3/ul (0-0.6); ABS Monocytes 0.7 10^3/ul (0-0.8); ABS Neutrophils 7.2 10^3/ul (1.5-7.7); Hematocrit 37 % (35-47); Hemoglobin 12.2 g/dL (12.0-16.0); Lymphocyte % 11.5 %; Mean Corpuscular HGB Conc 33 g/dL (31-36); Mean Corpuscular Hemoglobin 28 pg (27-31); Mean Corpuscular Volume 85 fL (80-97); Mean Platelet Volume 9.2 fL (7.4-10.4); Platelet Count 99 10^3/uL (150-450); Red Blood Count 4.33 10^6 /uL (3.70-4.87); Red Cell Distribution Width 15 % (10-15)
[2019-07-19] MEDS: Insulin LISPRO* 1 UNITS UNIT SUBCUT SCH ×4 (08:53→22:54)
[2019-07-19] MEDS: Metoprolol Succinate XL TAB* 100 MG PO SCH (08:54)
[2019-07-19] MEDS: Aspirin 81 mg CHEW TAB* 81 MG TAB.CHEW PO SCH (08:54)
[2019-07-19] MEDS: Nystatin TOP POWDER* 15 GM BTL TOPICAL SCH ×2 (08:55→14:05)
--- NOTE | 2019-07-19 14:41 | PN ---
Subjective Date of Service: 07/19/19 Interval History: Patient has no complaints. After an extensive conversation about why it would be unsafe to go home, she is unable to repeat any reasoning why it would be unsafe for her to go home. She is unable to express why it is unsafe that she frequently does not eat at home, scooter considering her diabetes dx and insulin use. She doesn't understand why it is unsafe that she is not managing her medications appropriately. She knows her friend is worried about her but doesn' t remember why. "I remember she brought the police to my house and I was angry with her about that." She does agree to think about going to assisted living and states "I would like a half a day to think about it." She denies dysuria, abd pain, chest pain, difficulty breathing, fever/chills. Objective Active Medications: Acetaminophen (Tylenol Tab*) 650 mg PO Q4H PRN PRN Reason: MILD PAIN or TEMP > 100.4 Aspirin (Aspirin 81 Mg Chew Tab*) 81 mg PO DAILY [facility] Last Admin: 07/19/19 08:54 Dose: 81 mg Dextrose (Dextrose 50% Vial 50 Ml*) 25 ml IV PUSH .FOR FS < 60 - SS PRN PRN Reason: FS < 60 Enoxaparin Sodium (Lovenox(*)) 40 mg SUBCUT Q24H [facility] Last Admin: 07/18/19 19:32 Dose: 40 mg Ceftriaxone Sodium 1 gm/ (Sodium Chloride) 50 mls @ 100 mls/hr IVPB Q24H [facility] Last Admin: 07/18/19 19:29 Dose: 100 mls/hr Insulin Glargine (Lantus(*)) 14 units SUBCUT QPM [facility] Insulin Human Lispro (Humalog*) 0 units SUBCUT ACHS [facility]; Protocol Last Admin: 07/19/19 14:03 Dose: 3 units Metoprolol Succinate (Toprol Xl Tab*) 100 mg PO DAILY [facility] Last Admin: 07/19/19 08:54 Dose: 100 mg Nystatin (Nystatin Top Powder*) 1 applic TOPICAL TID [facility] Last Admin: 07/19/19 14:05 Dose: 1 applic Vital Signs - 8 hr 07/19/19 07:48 Temperature 97.5 F Pulse Rate 78 Respiratory 22 Rate Blood Pressure 152/89 (mmHg) O2 Sat by Pulse 91 Oximetry Oxygen Devices in Use Now: None Appearance: Obese, elderly white female, laying in hospital bed, appearing comfortable and in NAD Eyes: No Scleral Icterus, - - PERRL Ears/Nose/Mouth/Throat: Mucous Membranes Moist Neck: Trachea Midline Respiratory: Symmetrical Chest Expansion and Respiratory Effort, Clear to Auscultation Cardiovascular: NL Sounds; No Murmurs; No JVD, RRR Abdominal: - - abd soft, nontender, nondistended, no suprapubic tenderness Extremities: No Clubbing, Cyanosis, - - +1 pitting edema pretibially bilaterally Skin: No Rash or Ulcers Neurological: - - alert and oriented x3 however unable why she was in the hospital, why her friend brings the police to her house, or why it is concerning that she doesn't eat or manage her meds appropriately Result Diagrams: 07/19/19 06:40 07/19/19 06:40 Assess/Plan/Problems-Billing Assessment: 79 yo female with PMHx DMT2, HTN, 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 - Patient Problems (1) Memory loss Current Visit: Yes Status: Acute Code(s): R41.3 - OTHER AMNESIA SNOMED Code(s): 93757813 Comment: -due to this patient's memory loss she was brought to the ED for concern for her safety at home -I find this patient to lack capacity to request discharge to home at this time. She is unable to explain the negative implications of taking insulin incorrectly, not eating, and not having a working phone at home. I do not believe psychiatry needs to be consulted for this at this time. -SW involved, disposition pending -patient agreeable at times to assisted living (2) Sepsis Current Visit: Yes Status: Acute Comment: -2/2 UTI -signs of sepsis (leukocytosis and tachycardia) resolved today -blood culture without growth -continue ceftriaxone (3) UTI (urinary tract infection) Current Visit: No Status: Acute Comment: -presented with AMS however patient seems to overall be at her baseline confusion based on description from friend and PCP notes -urine culture positive for klebsiella, S&S pending -continue ceftriaxone (4) Diabetes mellitus type 2 in obese Current Visit: Yes Status: Acute Code(s): E11.69 - TYPE 2 DIABETES MELLITUS WITH OTHER SPECIFIED COMPLICATION; E66.9 - OBESITY, UNSPECIFIED SNOMED Code(s) : 97298472 Comment: -A1c 8.8 indicating patient could have better control -continue insulin glargine and lispro SS -holding home metformin (5) HTN (hypertension) Current Visit: No Status: Acute Code(s): I10 - ESSENTIAL (PRIMARY) HYPERTENSION SNOMED Code(s): 79433011 Comment: -restart home amlodipine and losartan as patient has been hypertensive -continue metoprolol -it is unclear why patient is on aspirin and plavix. The two PCP progress notes from 2019 do not reflect diagnosis of CVA/TIA/CAD on PMHx list, but will continue these while inpatient (6) Bilateral lower extremity edema Current Visit: Yes Status: Acute Code(s): R60.0 - LOCALIZED EDEMA SNOMED Code(s): 954480509 Comment: -patient has chronic bilateral LE edema for which she takes bumex prn -edematous today and will start bumex tomorrow AM (7) Elevated troponin Current Visit: Yes Status: Acute Code(s): R79.89 - OTHER SPECIFIED ABNORMAL FINDINGS OF BLOOD CHEMISTRY SNOMED Code(s): 411222389 Comment: -peaked at 0.07 and has since downtriended -no EKG changes -no anginal sxs -likely ischemic demand 2/2 acute infection (8) History of permanent cardiac pacemaker placement Current Visit: Yes Status: Acute Code(s): Z95.0 - PRESENCE OF CARDIAC PACEMAKER SNOMED Code(s): 120044716 Comment: -due to 3rd degree heart block (9) DVT prophylaxis Current Visit: Yes Status: Acute Code(s): Z29.9 - ENCOUNTER FOR PROPHYLACTIC MEASURES, UNSPECIFIED SNOMED Code(s): 096607085 Comment: -has hx of DVT/PE but not on AC -lovenox while in hospital (10) Full code status Current Visit: Yes Status: Acute Code(s): Z78.9 - OTHER SPECIFIED HEALTH STATUS SNOMED Code(s): 597370820 Status and Disposition: pending planning via social work, hoping for placement at [facility]
[2019-07-19 16:15] LABS: Troponin I 0.06 ng/mL (<0.03)
[2019-07-19] MEDS: Enoxaparin(*) 40 MG/0.4 ML SYR SUBCUT SCH (18:17)
[2019-07-19] MEDS: cefTRIAXone(*) 1 GM in NS 0.9% 50 ML* 50 ML IVPB SCH (18:17)
[2019-07-19] MEDS: Insulin GLARGINE(*) 1 UNITS UNIT SUBCUT SCH (18:17)
[2019-07-19] MEDS ORDERED: Potassium Chlor TAB* 20 MEQ TAB.ER PO ONE ×2 (19:50→22:30)
[2019-07-20] MEDS: Nystatin TOP POWDER* 15 GM BTL TOPICAL SCH ×4 (00:04→21:31)
[2019-07-20 06:24] LABS: ABS Eosinophils 0.1 10^3/ul (0-0.6); ABS Lymphocytes 1.2 10^3/ul (1.0-4.8); ABS Monocytes 0.6 10^3/ul (0-0.8); ABS Neutrophils 5.4 10^3/ul (1.5-7.7); Eosinophil % 1.5 %; Hematocrit 41 % (35-47); Hemoglobin 13.1 g/dL (12.0-16.0); Lymphocyte % 16.3 %; Mean Corpuscular HGB Conc 32 g/dL (31-36); Mean Corpuscular Hemoglobin 28 pg (27-31); Mean Corpuscular Volume 88 fL (80-97); Mean Platelet Volume 9.4 fL (7.4-10.4); Nucleated Red Blood Cells % 0.1; Platelet Count 85 10^3/uL (150-450); Red Blood Count 4.64 10^6 /uL (3.70-4.87); Red Cell Distribution Width 16 % (10-15); White Blood Count 7.3 10^3/uL (3.5-10.8)
[2019-07-20 06:39] LABS: Calcium 9.1 mg/dL (8.6-10.3); Potassium 4.3 mmol/L (3.5-5.0)
[2019-07-20 06:45] LABS: BUN/Creatinine Ratio 22.1 (8-20); EGFR African American 77.2 (>60); EGFR Non-African American 63.8 (>60)
[2019-07-20] MEDS: Atorvastatin* 40 MG TAB PO SCH (09:41)
[2019-07-20] MEDS: Losartan TAB* 25 MG PO SCH (09:41)
[2019-07-20] MEDS: Bumetanide TAB* 2 MG PO SCH (09:41)
[2019-07-20] MEDS: Aspirin 81 mg CHEW TAB* 81 MG TAB.CHEW PO SCH (09:41)
[2019-07-20] MEDS: amLODIPine TAB* 5 MG PO SCH (09:41)
[2019-07-20] MEDS: Clopidogrel TAB* 75 MG PO SCH (09:42)
[2019-07-20] MEDS: Metoprolol Succinate XL TAB* 100 MG PO SCH (09:42)
[2019-07-20] MEDS: Insulin LISPRO* 1 UNITS UNIT SUBCUT SCH ×4 (09:44→21:20)
--- NOTE | 2019-07-20 15:39 | PN ---
Subjective Date of Service: 07/20/19 Interval History: Patient was seen sitting up in a chair. Appeared to be thinking more clearly than previously reported, was able to answer all orientation questions. When asked why she hadn't taken her antibiotic the previous month, she stated that she had simply felt like it was not something she needed to do. She also stated that she was not eating because she was not feeling hungry. PHQ-9 score was 8, revealing mild depression. Family History: Unchanged from Admission Social History: Unchanged from Admission Past Medical History: Unchanged from Admission Objective Active Medications: Acetaminophen (Tylenol Tab*) 650 mg PO Q4H PRN PRN Reason: MILD PAIN or TEMP > 100.4 Amlodipine Besylate (Norvasc Tab*) 5 mg PO DAILY [facility] Last Admin: 07/20/19 09:41 Dose: 5 mg Aspirin (Aspirin 81 Mg Chew Tab*) 81 mg PO DAILY [facility] Last Admin: 07/20/19 09:41 Dose: 81 mg Atorvastatin Calcium (Lipitor*) 40 mg PO DAILY [facility] Last Admin: 07/20/19 09:41 Dose: 40 mg Bumetanide (Bumex Tab*) 2 mg PO DAILY [facility] Last Admin: 07/20/19 09:41 Dose: 2 mg Clopidogrel Bisulfate (Plavix Tab*) 75 mg PO DAILY [facility] Last Admin: 07/20/19 09:42 Dose: 75 mg Dextrose (Dextrose 50% Vial 50 Ml*) 25 ml IV PUSH .FOR FS < 60 - SS PRN PRN Reason: FS < 60 Enoxaparin Sodium (Lovenox(*)) 40 mg SUBCUT Q24H [facility] Last Admin: 07/19/19 18:17 Dose: 40 mg Ceftriaxone Sodium 1 gm/ (Sodium Chloride) 50 mls @ 100 mls/hr IVPB Q24H [facility] Last Admin: 07/19/19 18:17 Dose: 100 mls/hr Insulin Glargine (Lantus(*)) 14 units SUBCUT QPM [facility] Last Admin: 07/19/19 18:17 Dose: 14 unit Insulin Human Lispro (Humalog*) 0 units SUBCUT ACHS [facility]; Protocol Last Admin: 07/20/19 13:03 Dose: 3 units Losartan Potassium (Cozaar Tab*) 100 mg PO DAILY [facility] Last Admin: 07/20/19 09:41 Dose: 100 mg Metoprolol Succinate (Toprol Xl Tab*) 100 mg PO DAILY [facility] Last Admin: 07/20/19 09:42 Dose: 100 mg Nystatin (Nystatin Top Powder*) 1 applic TOPICAL TID [facility] Last Admin: 07/20/19 13:55 Dose: Not Given Oxygen Devices in Use Now: Nasal Cannula Appearance: Obese older woman seen sitting up in a chair, no acute distress. Eyes: No Scleral Icterus, PERRLA Ears/Nose/Mouth/Throat: NL Teeth, Lips, Gums, Clear Oropharnyx, Mucous Membranes Moist Neck: NL Appearance and Movements; NL JVP, Trachea Midline Respiratory: Symmetrical Chest Expansion and Respiratory Effort, Clear to Auscultation Cardiovascular: NL Sounds; No Murmurs; No JVD, RRR, No Edema Abdominal: NL Sounds; No Tenderness; No Distention Lymphatic: No Cervical Adenopathy Extremities: No Edema, No Clubbing, Cyanosis Skin: No Rash or Ulcers, No Nodules or Sclerosis Neurological: Alert and Oriented x 3 Lines/Tubes/Other Access: Clean, Dry and Intact Peripheral IV Result Diagrams: 07/20/19 06:10 07/20/19 06:10 Microbiology and Other Data: Microbiology 07/18/19 17:00 Urine Culture - Final Urine Klebsiella Pneumoniae 07/18/19 19:05 Aerobic Blood Culture - Preliminary Blood Venous No Growth Day 1 Anaerobic Blood Culture - Preliminary No Growth Day 1 07/18/19 19:13 Aerobic Blood Culture - Preliminary Blood Venous No Growth Day 1 Anaerobic Blood Culture - Preliminary No Growth Day 1 Assess/Plan/Problems-Billing Assessment: 79 yo female with PMHx DMT2, HTN, 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 - Patient Problems (1) Sepsis Current Visit: Yes Status: Acute Comment: -2/2 UTI -signs of sepsis (leukocytosis and tachycardia) resolved -blood culture without growth -continue ceftriaxone for a total of 5 days (2) Elevated troponin Current Visit: Yes Status: Acute Code(s): R79.89 - OTHER SPECIFIED ABNORMAL FINDINGS OF BLOOD CHEMISTRY SNOMED Code(s): 625969450 Comment: -peaked at 0.07 and has since downtriended -no EKG changes -no anginal sxs -likely ischemic demand 2/2 acute infection (3) Bilateral lower extremity edema Current Visit: Yes Status: Acute Code(s): R60.0 - LOCALIZED EDEMA SNOMED Code(s): 444954610 Comment: -patient has chronic bilateral LE edema for which she takes bumex prn -edematous today and will start bumex tomorrow AM (4) Diabetes mellitus type 2 in obese Current Visit: Yes Status: Acute Code(s): E11.69 - TYPE 2 DIABETES MELLITUS WITH OTHER SPECIFIED COMPLICATION; E66.9 - OBESITY, UNSPECIFIED SNOMED Code(s) : 92801327 Comment: -A1c 8.8 indicating patient could have better control -continue insulin glargine and lispro SS -holding home metformin (5) History of permanent cardiac pacemaker placement Current Visit: Yes Status: Acute Code(s): Z95.0 - PRESENCE OF CARDIAC PACEMAKER SNOMED Code(s): 723711425 Comment: -due to 3rd degree heart block -No ACS symptoms (6) Memory loss Current Visit: Yes Status: Acute Code(s): R41.3 - OTHER AMNESIA SNOMED Code(s): 96389701 Comment: -due to this patient's memory loss she was brought to the ED for concern for her safety at home -I find this patient to lack capacity to request discharge to home at this time. She is unable to explain the negative implications of taking insulin incorrectly, not eating, and not having a working phone at home. I do not believe psychiatry needs to be consulted for this at this time. -SW involved, disposition pending -patient agreeable to assisted living (7) DVT prophylaxis Current Visit: Yes Status: Acute Code(s): Z29.9 - ENCOUNTER FOR PROPHYLACTIC MEASURES, UNSPECIFIED SNOMED Code(s): 426136750 Comment: -has hx of DVT/PE but not on AC -lovenox while in hospital (8) Full code status Current Visit: Yes Status: Acute Code(s): Z78.9 - OTHER SPECIFIED HEALTH STATUS SNOMED Code(s): 385831125 Status and Disposition: pending planning via social work, hoping for placement at [facility] Attending: Candida Hernandez
[2019-07-20] MEDS: Insulin GLARGINE(*) 1 UNITS UNIT SUBCUT SCH (18:33)
[2019-07-20] MEDS: cefTRIAXone(*) 1 GM in NS 0.9% 50 ML* 50 ML IVPB SCH (21:30)
[2019-07-20] MEDS: Enoxaparin(*) 40 MG/0.4 ML SYR SUBCUT SCH (21:31)
[2019-07-21] MEDS: Losartan TAB* 25 MG PO SCH (08:50)
[2019-07-21] MEDS: Atorvastatin* 40 MG TAB PO SCH (08:50)
[2019-07-21] MEDS: Clopidogrel TAB* 75 MG PO SCH (08:50)
[2019-07-21] MEDS: Bumetanide TAB* 2 MG PO SCH (08:50)
[2019-07-21] MEDS: amLODIPine TAB* 5 MG PO SCH (08:51)
[2019-07-21] MEDS: Metoprolol Succinate XL TAB* 100 MG PO SCH (08:51)
[2019-07-21] MEDS: Aspirin 81 mg CHEW TAB* 81 MG TAB.CHEW PO SCH (08:51)
[2019-07-21] MEDS: Insulin LISPRO* 1 UNITS UNIT SUBCUT SCH ×4 (09:44→21:26)
[2019-07-21] MEDS: Nystatin TOP POWDER* 15 GM BTL TOPICAL SCH ×3 (09:45→21:30)
[2019-07-21] MEDS: Insulin GLARGINE(*) 1 UNITS UNIT SUBCUT SCH (17:01)
[2019-07-21] MEDS: Enoxaparin(*) 40 MG/0.4 ML SYR SUBCUT SCH (21:27)
[2019-07-21] MEDS: cefTRIAXone(*) 1 GM in NS 0.9% 50 ML* 50 ML IVPB SCH (21:30)
[2019-07-22] MEDS: Insulin LISPRO* 1 UNITS UNIT SUBCUT SCH ×4 (08:47→20:38)
[2019-07-22] MEDS: amLODIPine TAB* 5 MG PO SCH (09:04)
[2019-07-22] MEDS: Losartan TAB* 25 MG PO SCH (09:04)
[2019-07-22] MEDS: Metoprolol Succinate XL TAB* 100 MG PO SCH (09:04)
[2019-07-22] MEDS: Clopidogrel TAB* 75 MG PO SCH (09:04)
[2019-07-22] MEDS: Aspirin 81 mg CHEW TAB* 81 MG TAB.CHEW PO SCH (09:04)
[2019-07-22] MEDS: Atorvastatin* 40 MG TAB PO SCH (09:04)
[2019-07-22] MEDS: Bumetanide TAB* 2 MG PO SCH (09:04)
[2019-07-22] MEDS: Nystatin TOP POWDER* 15 GM BTL TOPICAL SCH ×3 (09:06→21:06)
--- NOTE | 2019-07-22 10:10 | PN ---
Subjective Date of Service: 07/21/19 Interval History: She states that she feels fine today. Has no acute complaints. Family History: Unchanged from Admission Social History: Unchanged from Admission Past Medical History: Unchanged from Admission Objective Active Medications: Acetaminophen (Tylenol Tab*) 650 mg PO Q4H PRN PRN Reason: MILD PAIN or TEMP > 100.4 Amlodipine Besylate (Norvasc Tab*) 5 mg PO DAILY [facility] Last Admin: 07/22/19 09:04 Dose: 5 mg Aspirin (Aspirin 81 Mg Chew Tab*) 81 mg PO DAILY [facility] Last Admin: 07/22/19 09:04 Dose: 81 mg Atorvastatin Calcium (Lipitor*) 40 mg PO DAILY [facility] Last Admin: 07/22/19 09:04 Dose: 40 mg Bumetanide (Bumex Tab*) 2 mg PO DAILY [facility] Last Admin: 07/22/19 09:04 Dose: 2 mg Clopidogrel Bisulfate (Plavix Tab*) 75 mg PO DAILY [facility] Last Admin: 07/22/19 09:04 Dose: 75 mg Dextrose (Dextrose 50% Vial 50 Ml*) 25 ml IV PUSH .FOR FS < 60 - SS PRN PRN Reason: FS < 60 Enoxaparin Sodium (Lovenox(*)) 40 mg SUBCUT Q24H [facility] Last Admin: 07/21/19 21:27 Dose: 40 mg Ceftriaxone Sodium 1 gm/ (Sodium Chloride) 50 mls @ 100 mls/hr IVPB Q24H [facility] Last Admin: 07/21/19 21:30 Dose: 100 mls/hr Insulin Glargine (Lantus(*)) 14 units SUBCUT QPM [facility] Last Admin: 07/21/19 17:01 Dose: 14 unit Insulin Human Lispro (Humalog*) 0 units SUBCUT ACHS [facility]; Protocol Last Admin: 07/22/19 08:47 Dose: Not Given Losartan Potassium (Cozaar Tab*) 100 mg PO DAILY [facility] Last Admin: 07/22/19 09:04 Dose: 100 mg Metoprolol Succinate (Toprol Xl Tab*) 100 mg PO DAILY [facility] Last Admin: 07/22/19 09:04 Dose: 100 mg Nystatin (Nystatin Top Powder*) 1 applic TOPICAL TID [facility] Last Admin: 07/22/19 09:06 Dose: 1 applic Vital Signs - 8 hr 07/22/19 07/22/1920 03:15 07:42 08:16 Temperature 98 F 97.2 F Pulse Rate 83 70 Respiratory 16 18 16 Rate Blood Pressure 151/90 131/79 (mmHg) O2 Sat by Pulse 97 94 Oximetry Oxygen Devices in Use Now: Nasal Cannula Appearance: Well developed, obese older woman seen sitting up in chair, no acute distress. Eyes: No Scleral Icterus, PERRLA Ears/Nose/Mouth/Throat: NL Teeth, Lips, Gums, Clear Oropharnyx, Mucous Membranes Moist Neck: NL Appearance and Movements; NL JVP, Trachea Midline Respiratory: Symmetrical Chest Expansion and Respiratory Effort, Clear to Auscultation Cardiovascular: NL Sounds; No Murmurs; No JVD, RRR Abdominal: NL Sounds; No Tenderness; No Distention Lymphatic: No Cervical Adenopathy Extremities: No Clubbing, Cyanosis, - - +2 pitting edema to bilateral lower extremities. Skin: No Rash or Ulcers, No Nodules or Sclerosis Neurological: Alert and Oriented x 3 Lines/Tubes/Other Access: Clean, Dry and Intact Peripheral IV Result Diagrams: 07/20/19 06:10 07/20/19 06:10 Microbiology and Other Data: Microbiology 07/18/19 17:00 Urine Culture - Final Urine Klebsiella Pneumoniae 07/18/19 19:05 Aerobic Blood Culture - Preliminary Blood Venous No Growth Day 1 Anaerobic Blood Culture - Preliminary No Growth Day 1 07/18/19 19:13 Aerobic Blood Culture - Preliminary Blood Venous No Growth Day 1 Anaerobic Blood Culture - Preliminary No Growth Day 1 Assess/Plan/Problems-Billing Assessment: 79 yo female with PMHx DMT2, HTN, 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 - Patient Problems (1) Sepsis Current Visit: Yes Status: Acute Comment: -2/2 UTI -signs of sepsis (leukocytosis and tachycardia) resolved -blood culture without growth -continue ceftriaxone for a total of 7 days (2) Elevated troponin Current Visit: Yes Status: Acute Code(s): R79.89 - OTHER SPECIFIED ABNORMAL FINDINGS OF BLOOD CHEMISTRY SNOMED Code(s): 422637881 Comment: -peaked at 0.07 and has since downtrended -no EKG changes -no anginal sxs -likely ischemic demand 2/2 acute infection (3) Bilateral lower extremity edema Current Visit: Yes Status: Acute Code(s): R60.0 - LOCALIZED EDEMA SNOMED Code(s): 739771585 Comment: -patient has chronic bilateral LE edema for which she takes bumex prn -bumex ordered daily due to ongoing edema. (4) Diabetes mellitus type 2 in obese Current Visit: Yes Status: Acute Code(s): E11.69 - TYPE 2 DIABETES MELLITUS WITH OTHER SPECIFIED COMPLICATION; E66.9 - OBESITY, UNSPECIFIED SNOMED Code(s) : 39697528 Comment: -A1c 8.8 indicating patient could have better control -continue insulin glargine and lispro SS -holding home metformin (5) History of permanent cardiac pacemaker placement Current Visit: Yes Status: Acute Code(s): Z95.0 - PRESENCE OF CARDIAC PACEMAKER SNOMED Code(s): 194491351 Comment: -due to 3rd degree heart block -No ACS symptoms (6) Memory loss Current Visit: Yes Status: Acute Code(s): R41.3 - OTHER AMNESIA SNOMED Code(s): 75589122 Comment: -due to this patient's memory loss she was brought to the ED for concern for her safety at home -I find this patient to lack capacity to request discharge to home at this time. She is unable to explain the negative implications of taking insulin incorrectly, not eating, and not having a working phone at home. I do not believe psychiatry needs to be consulted for this at this time. 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
--- NOTE | 2019-07-22 10:12 | PN ---
Subjective Date of Service: 07/22/19 Interval History: No acute complaints other than feeling tired. Denies pain, nausea, vomiting, palpitations. Nursing states that she frequently gets up without ringing her coleman. Family History: Unchanged from Admission Social History: Unchanged from Admission Past Medical History: Unchanged from Admission Objective Active Medications: Acetaminophen (Tylenol Tab*) 650 mg PO Q4H PRN PRN Reason: MILD PAIN or TEMP > 100.4 Amlodipine Besylate (Norvasc Tab*) 5 mg PO DAILY [facility] Last Admin: 07/22/19 09:04 Dose: 5 mg Aspirin (Aspirin 81 Mg Chew Tab*) 81 mg PO DAILY [facility] Last Admin: 07/22/19 09:04 Dose: 81 mg Atorvastatin Calcium (Lipitor*) 40 mg PO DAILY [facility] Last Admin: 07/22/19 09:04 Dose: 40 mg Bumetanide (Bumex Tab*) 2 mg PO DAILY [facility] Last Admin: 07/22/19 09:04 Dose: 2 mg Clopidogrel Bisulfate (Plavix Tab*) 75 mg PO DAILY [facility] Last Admin: 07/22/19 09:04 Dose: 75 mg Dextrose (Dextrose 50% Vial 50 Ml*) 25 ml IV PUSH .FOR FS < 60 - SS PRN PRN Reason: FS < 60 Enoxaparin Sodium (Lovenox(*)) 40 mg SUBCUT Q24H [facility] Last Admin: 07/21/19 21:27 Dose: 40 mg Ceftriaxone Sodium 1 gm/ (Sodium Chloride) 50 mls @ 100 mls/hr IVPB Q24H [facility] Last Admin: 07/21/19 21:30 Dose: 100 mls/hr Insulin Glargine (Lantus(*)) 14 units SUBCUT QPM [facility] Last Admin: 07/21/19 17:01 Dose: 14 unit Insulin Human Lispro (Humalog*) 0 units SUBCUT ACHS [facility]; Protocol Last Admin: 07/22/19 08:47 Dose: Not Given Losartan Potassium (Cozaar Tab*) 100 mg PO DAILY [facility] Last Admin: 07/22/19 09:04 Dose: 100 mg Metoprolol Succinate (Toprol Xl Tab*) 100 mg PO DAILY [facility] Last Admin: 07/22/19 09:04 Dose: 100 mg Nystatin (Nystatin Top Powder*) 1 applic TOPICAL TID [facility] Last Admin: 07/22/19 09:06 Dose: 1 applic Vital Signs - 8 hr 07/22/19 07/22/19 07/22/19 03:15 07:42 08:16 Temperature 98 F 97.2 F Pulse Rate 83 70 Respiratory 16 18 16 Rate Blood Pressure 151/90 131/79 (mmHg) O2 Sat by Pulse 97 94 Oximetry Oxygen Devices in Use Now: Nasal Cannula Appearance: Well developed, obese older woman seen sitting up in chair, no acute distress. Eyes: No Scleral Icterus, PERRLA Ears/Nose/Mouth/Throat: NL Teeth, Lips, Gums, Clear Oropharnyx, Mucous Membranes Moist Neck: NL Appearance and Movements; NL JVP, Trachea Midline Respiratory: Symmetrical Chest Expansion and Respiratory Effort, Clear to Auscultation Cardiovascular: NL Sounds; No Murmurs; No JVD, RRR Abdominal: NL Sounds; No Tenderness; No Distention Lymphatic: No Cervical Adenopathy Extremities: No Clubbing, Cyanosis, - - +2 pitting edema to bilateral lower extremities. Skin: No Rash or Ulcers, No Nodules or Sclerosis Neurological: Alert and Oriented x 3 Lines/Tubes/Other Access: Clean, Dry and Intact Peripheral IV Result Diagrams: 07/20/19 06:10 07/20/19 06:10 Microbiology and Other Data: Microbiology 07/18/19 17:00 Urine Culture - Final Urine Klebsiella Pneumoniae 07/18/19 19:05 Aerobic Blood Culture - Preliminary Blood Venous No Growth Day 1 Anaerobic Blood Culture - Preliminary No Growth Day 1 07/18/19 19:13 Aerobic Blood Culture - Preliminary Blood Venous No Growth Day 1 Anaerobic Blood Culture - Preliminary No Growth Day 1 Assess/Plan/Problems-Billing Assessment: 79 yo female with PMHx DMT2, HTN, 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 - Patient Problems (1) Sepsis Current Visit: Yes Status: Acute Comment: -2/2 UTI -signs of sepsis (leukocytosis and tachycardia) resolved -blood culture without growth -continue ceftriaxone for a total of 7 days (2) Elevated troponin Current Visit: Yes Status: Acute Code(s): R79.89 - OTHER SPECIFIED ABNORMAL FINDINGS OF BLOOD CHEMISTRY SNOMED Code(s): 095358018 Comment: -peaked at 0.07 and has since downtrended -no EKG changes -no anginal sxs -likely ischemic demand 2/2 acute infection (3) Bilateral lower extremity edema Current Visit: Yes Status: Acute Code(s): R60.0 - LOCALIZED EDEMA SNOMED Code(s): 096528845 Comment: -patient has chronic bilateral LE edema for which she takes bumex prn -bumex ordered daily due to ongoing edema. -Ordered bilateral lower extremity christin wraps. (4) Diabetes mellitus type 2 in obese Current Visit: Yes Status: Acute Code(s): E11.69 - TYPE 2 DIABETES MELLITUS WITH OTHER SPECIFIED COMPLICATION; E66.9 - OBESITY, UNSPECIFIED SNOMED Code(s) : 50481850 Comment: -A1c 8.8 indicating patient could have better control -continue insulin glargine and lispro SS -holding home metformin (5) History of permanent cardiac pacemaker placement Current Visit: Yes Status: Acute Code(s): Z95.0 - PRESENCE OF CARDIAC PACEMAKER SNOMED Code(s): 050211283 Comment: -due to 3rd degree heart block -No ACS symptoms (6) Memory loss Current Visit: Yes Status: Acute Code(s): R41.3 - OTHER AMNESIA SNOMED Code(s): 12098478 Comment: -due to this patient's memory loss she was brought to the ED for concern for her safety at home -I find this patient to lack capacity to request discharge to home at this time. She is unable to explain the negative implications of taking insulin incorrectly, not eating, and not having a working phone at home. I do not believe psychiatry needs to be consulted for this at this time. 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
[2019-07-22] MEDS: Insulin GLARGINE(*) 1 UNITS UNIT SUBCUT SCH (17:27)
[2019-07-22] MEDS: cefTRIAXone(*) 1 GM in NS 0.9% 50 ML* 50 ML IVPB SCH (21:00)
[2019-07-22] MEDS: Enoxaparin(*) 40 MG/0.4 ML SYR SUBCUT SCH (21:00)
[2019-07-23] MEDS: Metoprolol Succinate XL TAB* 100 MG PO SCH (09:17)
[2019-07-23] MEDS: Nystatin TOP POWDER* 15 GM BTL TOPICAL SCH ×3 (09:17→19:59)
[2019-07-23] MEDS: Atorvastatin* 40 MG TAB PO SCH (09:17)
[2019-07-23] MEDS: Losartan TAB* 25 MG PO SCH (09:17)
[2019-07-23] MEDS: Bumetanide TAB* 2 MG PO SCH (09:17)
[2019-07-23] MEDS: Insulin LISPRO* 1 UNITS UNIT SUBCUT SCH ×4 (09:17→17:50)
[2019-07-23] MEDS: Clopidogrel TAB* 75 MG PO SCH (09:17)
[2019-07-23] MEDS: amLODIPine TAB* 5 MG PO SCH (09:17)
[2019-07-23] MEDS: Aspirin 81 mg CHEW TAB* 81 MG TAB.CHEW PO SCH (09:17)
--- NOTE | 2019-07-23 09:17 | PN ---
Subjective Date of Service: 07/23/19 Interval History: She was feeling very frustrated today. States that she feels like a prisoner, wants to go outside for fresh air. Is frustrated by having a personal alarm on and being unable to ambulate by herself. Spoke with nurse who stated that she was steady on her feet, woul dbe comfortable with allowing her to go to the bathroom and back without assistance. Family History: Unchanged from Admission Social History: Unchanged from Admission Past Medical History: Unchanged from Admission Objective Active Medications: Acetaminophen (Tylenol Tab*) 650 mg PO Q4H PRN PRN Reason: MILD PAIN or TEMP > 100.4 Amlodipine Besylate (Norvasc Tab*) 5 mg PO DAILY [facility] Last Admin: 07/22/19 09:04 Dose: 5 mg Aspirin (Aspirin 81 Mg Chew Tab*) 81 mg PO DAILY [facility] Last Admin: 07/22/19 09:04 Dose: 81 mg Atorvastatin Calcium (Lipitor*) 40 mg PO DAILY [facility] Last Admin: 07/22/19 09:04 Dose: 40 mg Bumetanide (Bumex Tab*) 2 mg PO DAILY [facility] Last Admin: 07/22/19 09:04 Dose: 2 mg Clopidogrel Bisulfate (Plavix Tab*) 75 mg PO DAILY [facility] Last Admin: 07/22/19 09:04 Dose: 75 mg Dextrose (Dextrose 50% Vial 50 Ml*) 25 ml IV PUSH .FOR FS < 60 - SS PRN PRN Reason: FS < 60 Enoxaparin Sodium (Lovenox(*)) 40 mg SUBCUT Q24H [facility] Last Admin: 07/22/19 21:00 Dose: 40 mg Ceftriaxone Sodium 1 gm/ (Sodium Chloride) 50 mls @ 100 mls/hr IVPB Q24H [facility] Stop: 07/24/19 19:30 Last Admin: 07/22/19 21:00 Dose: 100 mls/hr Insulin Glargine (Lantus(*)) 14 units SUBCUT QPM [facility] Last Admin: 07/22/19 17:27 Dose: 14 unit Insulin Human Lispro (Humalog*) 0 units SUBCUT ACHS [facility]; Protocol Last Admin: 07/22/19 20:38 Dose: Not Given Losartan Potassium (Cozaar Tab*) 100 mg PO DAILY [facility] Last Admin: 07/22/19 09:04 Dose: 100 mg Metoprolol Succinate (Toprol Xl Tab*) 100 mg PO DAILY [facility] Last Admin: 07/22/19 09:04 Dose: 100 mg Nystatin (Nystatin Top Powder*) 1 applic TOPICAL TID [facility] Last Admin: 07/22/19 21:06 Dose: 1 applic Vital Signs - 8 hr 07/23/19 07/23/19 07/23/19 03:15 08:00 08:34 Temperature 98.0 F 97.7 F Pulse Rate 79 76 Respiratory 20 18 20 Rate Blood Pressure 127/68 141/74 (mmHg) O2 Sat by Pulse 97 91 Oximetry Oxygen Devices in Use Now: None Appearance: This is a well developed woman seen sitting up in chair, no acute distress. Eyes: No Scleral Icterus, PERRLA Ears/Nose/Mouth/Throat: NL Teeth, Lips, Gums, Clear Oropharnyx, Mucous Membranes Moist Neck: NL Appearance and Movements; NL JVP, Trachea Midline Respiratory: Symmetrical Chest Expansion and Respiratory Effort, Clear to Auscultation Cardiovascular: NL Sounds; No Murmurs; No JVD, RRR, No Edema Abdominal: NL Sounds; No Tenderness; No Distention Lymphatic: No Cervical Adenopathy Extremities: No Edema, No Clubbing, Cyanosis Skin: No Rash or Ulcers, No Nodules or Sclerosis Neurological: Alert and Oriented x 3, - - Forgetful Lines/Tubes/Other Access: Clean, Dry and Intact Peripheral IV Result Diagrams: 07/20/19 06:10 07/20/19 06:10 Microbiology and Other Data: Microbiology 07/18/19 17:00 Urine Culture - Final Urine Klebsiella Pneumoniae 07/18/19 19:05 Aerobic Blood Culture - Preliminary Blood Venous No Growth Day 1 Anaerobic Blood Culture - Preliminary No Growth Day 1 07/18/19 19:13 Aerobic Blood Culture - Preliminary Blood Venous No Growth Day 1 Anaerobic Blood Culture - Preliminary No Growth Day 1 Assess/Plan/Problems-Billing Assessment: 79 yo female with PMHx DMT2, HTN, 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 - Patient Problems (1) Sepsis Current Visit: Yes Status: Acute Comment: -2/2 UTI -signs of sepsis (leukocytosis and tachycardia) resolved -blood culture without growth -continue ceftriaxone for a total of 7 days, to be stopped after tomorrows dose. (2) Elevated troponin Current Visit: Yes Status: Acute Code(s): R79.89 - OTHER SPECIFIED ABNORMAL FINDINGS OF BLOOD CHEMISTRY SNOMED Code(s): 673009078 Comment: -peaked at 0.07 and has since downtrended -no EKG changes -no anginal sxs -likely ischemic demand 2/2 acute infection (3) Bilateral lower extremity edema Current Visit: Yes Status: Acute Code(s): R60.0 - LOCALIZED EDEMA SNOMED Code(s): 246782980 Comment: -patient has chronic bilateral LE edema for which she takes bumex prn -bumex ordered daily due to ongoing edema. -Continue bilateral lower extremity christin wraps. (4) Diabetes mellitus type 2 in obese Current Visit: Yes Status: Acute Code(s): E11.69 - TYPE 2 DIABETES MELLITUS WITH OTHER SPECIFIED COMPLICATION; E66.9 - OBESITY, UNSPECIFIED SNOMED Code(s) : 95692922 Comment: -A1c 8.8 indicating patient could have better control -continue insulin glargine and lispro SS -holding home metformin (5) History of permanent cardiac pacemaker placement Current Visit: Yes Status: Acute Code(s): Z95.0 - PRESENCE OF CARDIAC PACEMAKER SNOMED Code(s): 881633188 Comment: -due to 3rd degree heart block -No ACS symptoms (6) Memory loss Current Visit: Yes Status: Acute Code(s): R41.3 - OTHER AMNESIA SNOMED Code(s): 20073987 Comment: -due to this patient's memory loss she was brought to the ED for concern for her safety at home -I find this patient to lack capacity to request discharge to home at this time. She is unable to explain the negative implications of taking insulin incorrectly, not eating, and not having a working phone at home. I do not believe psychiatry needs to be consulted for this at this time. 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
[2019-07-23 16:36] LABS: Hematocrit 42 % (35-47); Mean Corpuscular HGB Conc 33 g/dL (31-36); Mean Corpuscular Hemoglobin 28 pg (27-31); Mean Corpuscular Volume 84 fL (80-97); Mean Platelet Volume 8.6 fL (7.4-10.4); Platelet Count 248 10^3/uL (150-450); Red Blood Count 5.01 10^6 /uL (3.70-4.87); Red Cell Distribution Width 16 % (10-15)
[2019-07-23 16:54] LABS: Microcytosis 1+
[2019-07-23 16:55] LABS: ABS Basophils 0.1 10^3/ul (0-0.2); ABS Eosinophils 0.2 10^3/ul (0-0.6); ABS Lymphocytes 1.5 10^3/ul (1.0-4.8); ABS Monocytes 0.8 10^3/ul (0-0.8); ABS Neutrophils 8.2 10^3/ul (1.5-7.7); Eosinophil % 1.7 %; Lymphocyte % 13.9 %
[2019-07-23] MEDS: Insulin GLARGINE(*) 1 UNITS UNIT SUBCUT SCH (17:38)
[2019-07-23] MEDS: Enoxaparin(*) 40 MG/0.4 ML SYR SUBCUT SCH (19:58)
[2019-07-23] MEDS: cefTRIAXone(*) 1 GM in NS 0.9% 50 ML* 50 ML IVPB SCH (19:59)
[2019-07-24] MEDS: Insulin LISPRO* 1 UNITS UNIT SUBCUT SCH ×3 (07:58→17:02)
[2019-07-24] MEDS: Losartan TAB* 25 MG PO SCH (07:58)
[2019-07-24] MEDS: Bumetanide TAB* 2 MG PO SCH (07:59)
[2019-07-24] MEDS: amLODIPine TAB* 5 MG PO SCH (07:59)
[2019-07-24] MEDS: Metoprolol Succinate XL TAB* 100 MG PO SCH (07:59)
[2019-07-24] MEDS: Atorvastatin* 40 MG TAB PO SCH (07:59)
[2019-07-24] MEDS: Clopidogrel TAB* 75 MG PO SCH (07:59)
[2019-07-24] MEDS: Aspirin 81 mg CHEW TAB* 81 MG TAB.CHEW PO SCH (08:00)
[2019-07-24] MEDS: Nystatin TOP POWDER* 15 GM BTL TOPICAL SCH ×3 (08:00→19:53)
--- NOTE | 2019-07-24 13:43 | PN ---
Subjective Date of Service: 07/24/19 Interval History: Sitting up in chair, no acute complaints. Stated that her nephew, Faizan Castro , would be coming up from [place] on to take her back with them to live. Informed social work of this update so they can call and confirm with the family member. Family History: Unchanged from Admission Social History: Unchanged from Admission Past Medical History: Unchanged from Admission Objective Active Medications: Acetaminophen (Tylenol Tab*) 650 mg PO Q4H PRN PRN Reason: MILD PAIN or TEMP > 100.4 Amlodipine Besylate (Norvasc Tab*) 5 mg PO DAILY [facility] Last Admin: 07/24/19 07:59 Dose: 5 mg Aspirin (Aspirin 81 Mg Chew Tab*) 81 mg PO DAILY [facility] Last Admin: 07/24/19 08:00 Dose: 81 mg Atorvastatin Calcium (Lipitor*) 40 mg PO DAILY [facility] Last Admin: 07/24/19 07:59 Dose: 40 mg Bumetanide (Bumex Tab*) 2 mg PO DAILY [facility] Last Admin: 07/24/19 07:59 Dose: 2 mg Clopidogrel Bisulfate (Plavix Tab*) 75 mg PO DAILY [facility] Last Admin: 07/24/19 07:59 Dose: 75 mg Dextrose (Dextrose 50% Vial 50 Ml*) 25 ml IV PUSH .FOR FS < 60 - SS PRN PRN Reason: FS < 60 Enoxaparin Sodium (Lovenox(*)) 40 mg SUBCUT Q24H [facility] Last Admin: 07/23/19 19:58 Dose: 40 mg Ceftriaxone Sodium 1 gm/ (Sodium Chloride) 50 mls @ 100 mls/hr IVPB Q24H [facility] Stop: 07/24/19 19:30 Last Admin: 07/23/19 19:59 Dose: 100 mls/hr Insulin Glargine (Lantus(*)) 14 units SUBCUT QPM [facility] Last Admin: 07/23/19 17:38 Dose: 14 unit Insulin Human Lispro (Humalog*) 0 units SUBCUT AC [facility]; Protocol Last Admin: 07/24/19 12:02 Dose: Not Given Losartan Potassium (Cozaar Tab*) 100 mg PO DAILY [facility] Last Admin: 07/24/19 07:58 Dose: 100 mg Metoprolol Succinate (Toprol Xl Tab*) 100 mg PO DAILY [facility] Last Admin: 07/24/19 07:59 Dose: 100 mg Nystatin (Nystatin Top Powder*) 1 applic TOPICAL TID [facility] Last Admin: 07/24/19 13:18 Dose: 1 applic Vital Signs - 8 hr 07/24/19 07/24/19 07/24/19 07:28 08:00 10:52 Temperature 98 F 97.5 F Pulse Rate 79 80 Respiratory 17 16 17 Rate Blood Pressure 118/73 117/70 (mmHg) O2 Sat by Pulse 92 97 Oximetry Oxygen Devices in Use Now: None Appearance: Well developed, obese woman seen sitting up in a chair, no acute distress. Eyes: No Scleral Icterus, PERRLA Ears/Nose/Mouth/Throat: NL Teeth, Lips, Gums, Clear Oropharnyx, Mucous Membranes Moist Neck: NL Appearance and Movements; NL JVP, Trachea Midline Respiratory: Symmetrical Chest Expansion and Respiratory Effort, Clear to Auscultation Cardiovascular: NL Sounds; No Murmurs; No JVD, RRR, - - +2 non-pitting edema to bilateral legs which are christin wrapped. Abdominal: NL Sounds; No Tenderness; No Distention Lymphatic: No Cervical Adenopathy Extremities: No Clubbing, Cyanosis, - - Edema as stated above. Skin: No Rash or Ulcers, No Nodules or Sclerosis Neurological: Alert and Oriented x 3 Lines/Tubes/Other Access: Clean, Dry and Intact Peripheral IV Result Diagrams: 07/23/19 16:24 07/20/19 06:10 Microbiology and Other Data: Microbiology 07/18/19 17:00 Urine Culture - Final Urine Klebsiella Pneumoniae 07/18/19 19:05 Aerobic Blood Culture - Preliminary Blood Venous No Growth Day 1 Anaerobic Blood Culture - Preliminary No Growth Day 1 07/18/19 19:13 Aerobic Blood Culture - Preliminary Blood Venous No Growth Day 1 Anaerobic Blood Culture - Preliminary No Growth Day 1 Assess/Plan/Problems-Billing Assessment: 79 yo female with PMHx DMT2, HTN, 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 - Patient Problems (1) Sepsis Current Visit: Yes Status: Acute Comment: -2/2 UTI -signs of sepsis (leukocytosis and tachycardia) resolved -blood culture without growth -continue ceftriaxone for a total of 7 days, today is the last dose. (2) Elevated troponin Current Visit: Yes Status: Acute Code(s): R79.89 - OTHER SPECIFIED ABNORMAL FINDINGS OF BLOOD CHEMISTRY SNOMED Code(s): 999567315 Comment: -peaked at 0.07 and has since downtrended -no EKG changes -no anginal sxs -likely ischemic demand 2/2 acute infection (3) Bilateral lower extremity edema Current Visit: Yes Status: Acute Code(s): R60.0 - LOCALIZED EDEMA SNOMED Code(s): 305842162 Comment: -patient has chronic bilateral LE edema for which she takes bumex prn -bumex ordered daily due to ongoing edema. -Continue bilateral lower extremity christin wraps. (4) Diabetes mellitus type 2 in obese Current Visit: Yes Status: Acute Code(s): E11.69 - TYPE 2 DIABETES MELLITUS WITH OTHER SPECIFIED COMPLICATION; E66.9 - OBESITY, UNSPECIFIED SNOMED Code(s) : 19797177 Comment: -A1c 8.8 indicating patient could have better control -continue insulin glargine and lispro SS -Will restart metformin. (5) History of permanent cardiac pacemaker placement Current Visit: Yes Status: Acute Code(s): Z95.0 - PRESENCE OF CARDIAC PACEMAKER SNOMED Code(s): 160448172 Comment: -due to 3rd degree heart block -No ACS symptoms (6) Memory loss Current Visit: Yes Status: Acute Code(s): R41.3 - OTHER AMNESIA SNOMED Code(s): 21294362 Comment: -due to this patient's memory loss she was brought to the ED for concern for her safety at home -I find this patient to lack capacity to request discharge to home at this time. She is unable to explain the negative implications of taking insulin incorrectly, not eating, and not having a working phone at home. I do not believe psychiatry needs to be consulted for this at this time. 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
[2019-07-24] MEDS: Insulin GLARGINE(*) 1 UNITS UNIT SUBCUT SCH (18:14)
[2019-07-24] MEDS: cefTRIAXone(*) 1 GM in NS 0.9% 50 ML* 50 ML IVPB SCH (19:53)
[2019-07-24] MEDS: Enoxaparin(*) 40 MG/0.4 ML SYR SUBCUT SCH (19:53)
[2019-07-24] MEDS: metFORMIN* 500 MG TAB PO SCH (19:53)
[2019-07-25] MEDS: metFORMIN* 500 MG TAB PO SCH ×2 (09:22→20:17)
[2019-07-25] MEDS: Aspirin 81 mg CHEW TAB* 81 MG TAB.CHEW PO SCH (09:22)
[2019-07-25] MEDS: Bumetanide TAB* 2 MG PO SCH (09:22)
[2019-07-25] MEDS: Insulin LISPRO* 1 UNITS UNIT SUBCUT SCH ×3 (09:22→17:48)
[2019-07-25] MEDS: Atorvastatin* 40 MG TAB PO SCH (09:22)
[2019-07-25] MEDS: Clopidogrel TAB* 75 MG PO SCH (09:23)
[2019-07-25] MEDS: Metoprolol Succinate XL TAB* 100 MG PO SCH (09:23)
[2019-07-25] MEDS: Losartan TAB* 25 MG PO SCH (09:23)
[2019-07-25] MEDS: Nystatin TOP POWDER* 15 GM BTL TOPICAL SCH ×3 (09:25→20:19)
[2019-07-25] MEDS: amLODIPine TAB* 5 MG PO SCH (09:26)
[2019-07-25 10:00] LABS: ABS Basophils 0.1 10^3/ul (0-0.2); ABS Eosinophils 0.3 10^3/ul (0-0.6); ABS Lymphocytes 1.1 10^3/ul (1.0-4.8); ABS Monocytes 0.6 10^3/ul (0-0.8); ABS Neutrophils 5.6 10^3/ul (1.5-7.7); Eosinophil % 3.8 %; Hematocrit 39 % (35-47); Hemoglobin 13.1 g/dL (12.0-16.0); Lymphocyte % 14.8 %; Mean Corpuscular HGB Conc 33 g/dL (31-36); Mean Corpuscular Hemoglobin 28 pg (27-31); Mean Corpuscular Volume 83 fL (80-97); Mean Platelet Volume 8.5 fL (7.4-10.4); Nucleated Red Blood Cells % 0.1; Platelet Count 288 10^3/uL (150-450); Red Blood Count 4.72 10^6 /uL (3.70-4.87); Red Cell Distribution Width 15 % (10-15); White Blood Count 7.7 10^3/uL (3.5-10.8)
--- NOTE | 2019-07-25 11:01 | PN ---
Subjective Date of Service: 07/25/19 Interval History: Patient awakens easily from sleep and states "I haven't been getting enough sleep" but otherwise has no complaints. Denies chest pain, abd pain, back pain, dysuria, fever/chills. Family History: Unchanged from Admission Social History: Unchanged from Admission Past Medical History: Unchanged from Admission Objective Active Medications: Acetaminophen (Tylenol Tab*) 650 mg PO Q4H PRN PRN Reason: MILD PAIN or TEMP > 100.4 Amlodipine Besylate (Norvasc Tab*) 5 mg PO DAILY [facility] Last Admin: 07/25/19 09:26 Dose: 5 mg Aspirin (Aspirin 81 Mg Chew Tab*) 81 mg PO DAILY [facility] Last Admin: 07/25/19 09:22 Dose: 81 mg Atorvastatin Calcium (Lipitor*) 40 mg PO DAILY [facility] Last Admin: 07/25/19 09:22 Dose: 40 mg Bumetanide (Bumex Tab*) 2 mg PO DAILY [facility] Last Admin: 07/25/19 09:22 Dose: 2 mg Clopidogrel Bisulfate (Plavix Tab*) 75 mg PO DAILY [facility] Last Admin: 07/25/19 09:23 Dose: 75 mg Dextrose (Dextrose 50% Vial 50 Ml*) 25 ml IV PUSH .FOR FS < 60 - SS PRN PRN Reason: FS < 60 Enoxaparin Sodium (Lovenox(*)) 40 mg SUBCUT Q24H [facility] Last Admin: 07/24/19 19:53 Dose: 40 mg Insulin Glargine (Lantus(*)) 7 units SUBCUT BEDTIME [facility] Insulin Human Lispro (Humalog*) 0 units SUBCUT AC [facility]; Protocol Last Admin: 07/25/19 09:22 Dose: 3 unit Losartan Potassium (Cozaar Tab*) 100 mg PO DAILY [facility] Last Admin: 07/25/19 09:23 Dose: 100 mg Metformin HCl (Glucophage*) 750 mg PO BID [facility] Last Admin: 07/25/19 09:22 Dose: 750 mg Metoprolol Succinate (Toprol Xl Tab*) 100 mg PO DAILY [facility] Last Admin: 07/25/19 09:23 Dose: 100 mg Nystatin (Nystatin Top Powder*) 1 applic TOPICAL TID [facility] Last Admin: 07/25/19 09:25 Dose: 1 applic Vital Signs - 8 hr 07/25/19 07/25/19 07:45 08:00 Temperature 97.1 F Pulse Rate 73 Respiratory 16 19 Rate Blood Pressure 145/69 (mmHg) O2 Sat by Pulse 93 Oximetry Oxygen Devices in Use Now: None Appearance: Obese, elderly white female, laying in recliner, appearing comfortable and in NAD Eyes: No Scleral Icterus, - - PERRL Ears/Nose/Mouth/Throat: Mucous Membranes Moist Neck: NL Appearance and Movements; NL JVP Respiratory: Symmetrical Chest Expansion and Respiratory Effort, Clear to Auscultation Cardiovascular: NL Sounds; No Murmurs; No JVD, RRR Abdominal: - - abd soft, nontender, nondistended Extremities: No Clubbing, Cyanosis, - - trace edema to bilateral LEs pretibially Skin: No Rash or Ulcers Neurological: NL Muscle Strength and Tone, - - alert and oriented to self Result Diagrams: 07/25/19 09:40 07/20/19 06:10 Microbiology and Other Data: Microbiology 07/18/19 17:00 Urine Culture - Final Urine Klebsiella Pneumoniae 07/18/19 19:05 Aerobic Blood Culture - Preliminary Blood Venous No Growth Day 1 Anaerobic Blood Culture - Preliminary No Growth Day 1 07/18/19 19:13 Aerobic Blood Culture - Preliminary Blood Venous No Growth Day 1 Anaerobic Blood Culture - Preliminary No Growth Day 1 Assess/Plan/Problems-Billing Assessment: 79 yo female with PMHx DMT2, HTN, 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 - Patient Problems (1) Memory loss Current Visit: Yes Status: Acute Code(s): R41.3 - OTHER AMNESIA SNOMED Code(s): 04505109 Comment: -due to this patient's memory loss she was brought to the ED for concern for her safety at home -I find this patient to lack capacity to request discharge to home at this time. She is unable to explain the negative implications of taking insulin incorrectly, not eating, and not having a working phone at home. I do not believe psychiatry needs to be consulted for this at this time. -SW involved, disposition pending -patient agreeable to assisted living (2) Sepsis Current Visit: Yes Status: Acute Comment: -2/2 UTI -signs of sepsis (leukocytosis and tachycardia) resolved -blood culture without growth -completed 7d of ceftriaxone (3) UTI (urinary tract infection) Current Visit: No Status: Acute Comment: -presented with AMS however patient seems to overall be at her baseline confusion based on description from friend and PCP notes -urine culture positive for klebsiella and has completed course of ceftriaxone (4) Diabetes mellitus type 2 in obese Current Visit: Yes Status: Acute Code(s): E11.69 - TYPE 2 DIABETES MELLITUS WITH OTHER SPECIFIED COMPLICATION; E66.9 - OBESITY, UNSPECIFIED SNOMED Code(s) : 69688971 Comment: -A1c 8.8 indicating patient could have better control -given episode of hypoglycemia yesterday, will hold home metforimn -lowering insulin glargine -continue lispro SS (5) HTN (hypertension) Current Visit: No Status: Acute Code(s): I10 - ESSENTIAL (PRIMARY) HYPERTENSION SNOMED Code(s): 67503666 Comment: -continue amlodipine, losartan, and metoprolol -it is unclear why patient is on aspirin and plavix. The two PCP progress notes from 2019 do not reflect diagnosis of CVA/TIA/CAD on PMHx list, but will continue these while inpatient (6) Bilateral lower extremity edema Current Visit: Yes Status: Acute Code(s): R60.0 - LOCALIZED EDEMA SNOMED Code(s): 058860992 Comment: -patient has chronic bilateral LE edema for which she takes bumex prn -Continue bilateral lower extremity christin wraps -edema is improved and will hold bumex for now (7) Elevated troponin Current Visit: Yes Status: Acute Code(s): R79.89 - OTHER SPECIFIED ABNORMAL FINDINGS OF BLOOD CHEMISTRY SNOMED Code(s): 909533625 Comment: -peaked at 0.07 and has since downtrended -no EKG changes -no anginal sxs -likely ischemic demand 2/2 acute infection (8) History of permanent cardiac pacemaker placement Current Visit: Yes Status: Acute Code(s): Z95.0 - PRESENCE OF CARDIAC PACEMAKER SNOMED Code(s): 384210151 Comment: -due to 3rd degree heart block -No ACS symptoms (9) DVT prophylaxis Current Visit: Yes Status: Acute Code(s): Z29.9 - ENCOUNTER FOR PROPHYLACTIC MEASURES, UNSPECIFIED SNOMED Code(s): 061239346 Comment: -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
[2019-07-25] MEDS: Insulin GLARGINE(*) 1 UNITS UNIT SUBCUT SCH (20:16)
[2019-07-25] MEDS: Enoxaparin(*) 40 MG/0.4 ML SYR SUBCUT SCH (20:16)
[2019-07-26 06:09] LABS: Calcium 9.3 mg/dL (8.6-10.3); EGFR African American 68.8 (>60); EGFR Non-African American 56.9 (>60); Potassium 3.7 mmol/L (3.5-5.0)
[2019-07-26] MEDS: metFORMIN* 500 MG TAB PO SCH ×2 (08:07→20:26)
[2019-07-26] MEDS: Atorvastatin* 40 MG TAB PO SCH (08:07)
[2019-07-26] MEDS: amLODIPine TAB* 5 MG PO SCH (08:07)
[2019-07-26] MEDS: Insulin LISPRO* 1 UNITS UNIT SUBCUT SCH ×3 (08:07→18:05)
[2019-07-26] MEDS: Clopidogrel TAB* 75 MG PO SCH (08:07)
[2019-07-26] MEDS: Aspirin 81 mg CHEW TAB* 81 MG TAB.CHEW PO SCH (08:07)
[2019-07-26] MEDS: Losartan TAB* 25 MG PO SCH (08:07)
[2019-07-26] MEDS: Metoprolol Succinate XL TAB* 100 MG PO SCH (08:07)
[2019-07-26] MEDS: Nystatin TOP POWDER* 15 GM BTL TOPICAL SCH ×3 (08:11→20:25)
--- NOTE | 2019-07-26 16:37 | PN ---
Subjective Date of Service: 07/26/19 Interval History: Patient has no complaints today. No acute events overnight. She is feeling well and has no complaints. Denies fever/chills, abd pain, dysuria, chest pain. SW is investigating if it would be more feasible for patient to move in with nephew vs go to [facility] for assisted living. Family History: Unchanged from Admission Social History: Unchanged from Admission Past Medical History: Unchanged from Admission Objective Active Medications: Acetaminophen (Tylenol Tab*) 650 mg PO Q4H PRN PRN Reason: MILD PAIN or TEMP > 100.4 Amlodipine Besylate (Norvasc Tab*) 5 mg PO DAILY [facility] Last Admin: 07/26/19 08:07 Dose: 5 mg Aspirin (Aspirin 81 Mg Chew Tab*) 81 mg PO DAILY [facility] Last Admin: 07/26/19 08:07 Dose: 81 mg Atorvastatin Calcium (Lipitor*) 40 mg PO DAILY [facility] Last Admin: 07/26/19 08:07 Dose: 40 mg Clopidogrel Bisulfate (Plavix Tab*) 75 mg PO DAILY [facility] Last Admin: 07/26/19 08:07 Dose: 75 mg Dextrose (Dextrose 50% Vial 50 Ml*) 25 ml IV PUSH .FOR FS < 60 - SS PRN PRN Reason: FS < 60 Enoxaparin Sodium (Lovenox(*)) 40 mg SUBCUT Q24H [facility] Last Admin: 07/25/19 20:16 Dose: 40 mg Insulin Glargine (Lantus(*)) 7 units SUBCUT BEDTIME [facility] Last Admin: 07/25/19 20:16 Dose: 7 units Insulin Human Lispro (Humalog*) 0 units SUBCUT AC [facility]; Protocol Last Admin: 07/26/19 12:30 Dose: 3 unit Losartan Potassium (Cozaar Tab*) 100 mg PO DAILY [facility] Last Admin: 07/26/19 08:07 Dose: 100 mg Metformin HCl (Glucophage*) 750 mg PO BID [facility] Last Admin: 07/26/19 08:07 Dose: 750 mg Metoprolol Succinate (Toprol Xl Tab*) 100 mg PO DAILY [facility] Last Admin: 07/26/19 08:07 Dose: 100 mg Nystatin (Nystatin Top Powder*) 1 applic TOPICAL TID [facility] Last Admin: 07/26/19 12:31 Dose: 1 applic Vital Signs - 8 hr 07/26/19 11:05 Temperature 98.2 F Pulse Rate 77 Respiratory 20 Rate Blood Pressure 106/74 (mmHg) O2 Sat by Pulse 97 Oximetry Oxygen Devices in Use Now: None Appearance: Obese, elderly white female, laying in bed, appearing comfortable and in NAD Eyes: No Scleral Icterus, - - PERRL Ears/Nose/Mouth/Throat: Mucous Membranes Moist Neck: Trachea Midline Respiratory: Symmetrical Chest Expansion and Respiratory Effort, Clear to Auscultation Cardiovascular: NL Sounds; No Murmurs; No JVD, RRR Abdominal: - - abd soft, nontender, nondistended, no suprapubic tenderness Extremities: No Clubbing, Cyanosis, - - trace edema to bilateral ankles Skin: No Rash or Ulcers Neurological: Alert and Oriented x 3, NL Muscle Strength and Tone Result Diagrams: 07/25/19 09:40 07/26/19 05:44 Microbiology and Other Data: Microbiology 07/18/19 17:00 Urine Culture - Final Urine Klebsiella Pneumoniae 07/18/19 19:05 Aerobic Blood Culture - Preliminary Blood Venous No Growth Day 1 Anaerobic Blood Culture - Preliminary No Growth Day 1 07/18/19 19:13 Aerobic Blood Culture - Preliminary Blood Venous No Growth Day 1 Anaerobic Blood Culture - Preliminary No Growth Day 1 Assess/Plan/Problems-Billing Assessment: 79 yo female with PMHx DMT2, HTN, 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 - Patient Problems (1) Memory loss Current Visit: Yes Status: Acute Code(s): R41.3 - OTHER AMNESIA SNOMED Code(s): 54375840 Comment: -due to this patient's memory loss she was brought to the ED for concern for her safety at home -I find this patient to lack capacity to request discharge to home at this time. She is unable to explain the negative implications of taking insulin incorrectly, not eating, and not having a working phone at home. I do not believe psychiatry needs to be consulted for this at this time. -SW involved, disposition pending -at her cognitive baseline (2) Sepsis Current Visit: Yes Status: Acute Comment: -2/2 UTI -signs of sepsis (leukocytosis and tachycardia) resolved -blood culture without growth -completed 7d of ceftriaxone (3) UTI (urinary tract infection) Current Visit: No Status: Acute Comment: -presented with AMS however patient seems to overall be at her baseline confusion based on description from friend and PCP notes -urine culture positive for klebsiella and has completed course of ceftriaxone (4) Diabetes mellitus type 2 in obese Current Visit: Yes Status: Acute Code(s): E11.69 - TYPE 2 DIABETES MELLITUS WITH OTHER SPECIFIED COMPLICATION; E66.9 - OBESITY, UNSPECIFIED SNOMED Code(s) : 79013683 Comment: -A1c 8.8 indicating patient could have better control -continue glargine and lispro SS -BGs with good control today in 150s-160s (5) HTN (hypertension) Current Visit: No Status: Acute Code(s): I10 - ESSENTIAL (PRIMARY) HYPERTENSION SNOMED Code(s): 56338543 Comment: -continue amlodipine, losartan, and metoprolol -it is unclear why patient is on aspirin and plavix. The two PCP progress notes from 2019 do not reflect diagnosis of CVA/TIA/CAD on PMHx list, but will continue these while inpatient (6) Bilateral lower extremity edema Current Visit: Yes Status: Acute Code(s): R60.0 - LOCALIZED EDEMA SNOMED Code(s): 603369950 Comment: -patient has chronic bilateral LE edema for which she takes bumex prn -Continue bilateral lower extremity christin wraps -edema is improved and will hold bumex for now (7) Elevated troponin Current Visit: Yes Status: Acute Code(s): R79.89 - OTHER SPECIFIED ABNORMAL FINDINGS OF BLOOD CHEMISTRY SNOMED Code(s): 466214668 Comment: -peaked at 0.07 and has since downtrended -no EKG changes -no anginal sxs -likely ischemic demand 2/2 acute infection (8) History of permanent cardiac pacemaker placement Current Visit: Yes Status: Acute Code(s): Z95.0 - PRESENCE OF CARDIAC PACEMAKER SNOMED Code(s): 689840947 Comment: -due to 3rd degree heart block -No ACS symptoms (9) DVT prophylaxis Current Visit: Yes Status: Acute Code(s): Z29.9 - ENCOUNTER FOR PROPHYLACTIC MEASURES, UNSPECIFIED SNOMED Code(s): 674309368 Comment: -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
[2019-07-26] MEDS: Insulin GLARGINE(*) 1 UNITS UNIT SUBCUT SCH (20:25)
[2019-07-26] MEDS: Enoxaparin(*) 40 MG/0.4 ML SYR SUBCUT SCH (20:26)
[2019-07-27] MEDS: Insulin LISPRO* 1 UNITS UNIT SUBCUT SCH ×3 (08:04→17:09)
[2019-07-27] MEDS: Aspirin 81 mg CHEW TAB* 81 MG TAB.CHEW PO SCH (09:26)
[2019-07-27] MEDS: Losartan TAB* 25 MG PO SCH (09:26)
[2019-07-27] MEDS: Atorvastatin* 40 MG TAB PO SCH (09:27)
[2019-07-27] MEDS: metFORMIN* 500 MG TAB PO SCH ×2 (09:27→22:20)
[2019-07-27] MEDS: Metoprolol Succinate XL TAB* 100 MG PO SCH (09:27)
[2019-07-27] MEDS: Clopidogrel TAB* 75 MG PO SCH (09:27)
[2019-07-27] MEDS: amLODIPine TAB* 5 MG PO SCH (09:28)
[2019-07-27] MEDS: Nystatin TOP POWDER* 15 GM BTL TOPICAL SCH ×3 (11:20→22:19)
--- NOTE | 2019-07-27 17:31 | PN ---
Subjective Date of Service: 07/27/19 Interval History: Patient has no complaints. No overnight events. Patient denies fever/chills, dysuria, abd pain, chest pain, difficulty breathing. She is excited to see her nephew. Family History: Unchanged from Admission Social History: Unchanged from Admission Past Medical History: Unchanged from Admission Objective Active Medications: Acetaminophen (Tylenol Tab*) 650 mg PO Q4H PRN PRN Reason: MILD PAIN or TEMP > 100.4 Amlodipine Besylate (Norvasc Tab*) 5 mg PO DAILY [facility] Last Admin: 07/27/19 09:28 Dose: 5 mg Aspirin (Aspirin 81 Mg Chew Tab*) 81 mg PO DAILY [facility] Last Admin: 07/27/19 09:26 Dose: 81 mg Atorvastatin Calcium (Lipitor*) 40 mg PO DAILY [facility] Last Admin: 07/27/19 09:27 Dose: 40 mg Clopidogrel Bisulfate (Plavix Tab*) 75 mg PO DAILY [facility] Last Admin: 07/27/19 09:27 Dose: 75 mg Dextrose (Dextrose 50% Vial 50 Ml*) 25 ml IV PUSH .FOR FS < 60 - SS PRN PRN Reason: FS < 60 Enoxaparin Sodium (Lovenox(*)) 40 mg SUBCUT Q24H [facility] Last Admin: 07/26/19 20:26 Dose: 40 mg Insulin Glargine (Lantus(*)) 7 units SUBCUT BEDTIME [facility] Last Admin: 07/26/19 20:25 Dose: 7 units Insulin Human Lispro (Humalog*) 0 units SUBCUT AC [facility]; Protocol Last Admin: 07/27/19 17:09 Dose: 3 unit Losartan Potassium (Cozaar Tab*) 100 mg PO DAILY [facility] Last Admin: 07/27/19 09:26 Dose: 100 mg Metformin HCl (Glucophage*) 750 mg PO BID [facility] Last Admin: 07/27/19 09:27 Dose: 750 mg Metoprolol Succinate (Toprol Xl Tab*) 100 mg PO DAILY [facility] Last Admin: 07/27/19 09:27 Dose: 100 mg Nystatin (Nystatin Top Powder*) 1 applic TOPICAL TID [facility] Last Admin: 07/27/19 15:02 Dose: 1 applic Vital Signs - 8 hr 07/27/19 07/27/19 11:15 15:15 Temperature 97 F 97.2 F Pulse Rate 75 78 Respiratory 16 20 Rate Blood Pressure 130/79 128/70 (mmHg) O2 Sat by Pulse 92 96 Oximetry Oxygen Devices in Use Now: None Appearance: Obese, elderly white female, sitting in chair, appearing comfortable and in NAD Eyes: No Scleral Icterus, - - PERRL Ears/Nose/Mouth/Throat: Mucous Membranes Moist Neck: Trachea Midline Respiratory: Symmetrical Chest Expansion and Respiratory Effort, Clear to Auscultation Cardiovascular: NL Sounds; No Murmurs; No JVD, RRR Abdominal: - - abd soft, nontender, nondistended Extremities: No Edema, No Clubbing, Cyanosis Skin: No Rash or Ulcers Neurological: Alert and Oriented x 3, NL Muscle Strength and Tone Result Diagrams: 07/25/19 09:40 07/26/19 05:44 Microbiology and Other Data: Microbiology 07/18/19 17:00 Urine Culture - Final Urine Klebsiella Pneumoniae 07/18/19 19:05 Aerobic Blood Culture - Preliminary Blood Venous No Growth Day 1 Anaerobic Blood Culture - Preliminary No Growth Day 1 07/18/19 19:13 Aerobic Blood Culture - Preliminary Blood Venous No Growth Day 1 Anaerobic Blood Culture - Preliminary No Growth Day 1 Assess/Plan/Problems-Billing Assessment: 79 yo female with PMHx DMT2, HTN, 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 - Patient Problems (1) Memory loss Current Visit: Yes Status: Acute Code(s): R41.3 - OTHER AMNESIA SNOMED Code(s): 83917958 Comment: -due to this patient's memory loss she was brought to the ED for concern for her safety at home -I find this patient to lack capacity to request discharge to home at this time. She is unable to explain the negative implications of taking insulin incorrectly, not eating, and not having a working phone at home. I do not believe psychiatry needs to be consulted for this at this time. -SW involved, disposition pending -at her cognitive baseline (2) Sepsis Current Visit: Yes Status: Acute Comment: -2/2 UTI -signs of sepsis (leukocytosis and tachycardia) resolved -blood culture without growth -completed 7d of ceftriaxone (3) UTI (urinary tract infection) Current Visit: No Status: Acute Comment: -presented with AMS however patient seems to overall be at her baseline confusion based on description from friend and PCP notes -urine culture positive for klebsiella and has completed course of ceftriaxone (4) Diabetes mellitus type 2 in obese Current Visit: Yes Status: Acute Code(s): E11.69 - TYPE 2 DIABETES MELLITUS WITH OTHER SPECIFIED COMPLICATION; E66.9 - OBESITY, UNSPECIFIED SNOMED Code(s) : 25614423 Comment: -A1c 8.8 indicating patient could have better control -continue glargine and lispro SS -BGs with good control today in 150s-160s (5) HTN (hypertension) Current Visit: No Status: Acute Code(s): I10 - ESSENTIAL (PRIMARY) HYPERTENSION SNOMED Code(s): 08482705 Comment: -normotensive -continue amlodipine, losartan, and metoprolol -it is unclear why patient is on aspirin and plavix. The two PCP progress notes from 2019 do not reflect diagnosis of CVA/TIA/CAD on PMHx list, but will continue these while inpatient (6) Bilateral lower extremity edema Current Visit: Yes Status: Acute Code(s): R60.0 - LOCALIZED EDEMA SNOMED Code(s): 552881949 Comment: -patient has chronic bilateral LE edema for which she takes bumex prn -Continue bilateral lower extremity christin wraps -edema is improved and will hold bumex for now (7) Elevated troponin Current Visit: Yes Status: Acute Code(s): R79.89 - OTHER SPECIFIED ABNORMAL FINDINGS OF BLOOD CHEMISTRY SNOMED Code(s): 087482698 Comment: -peaked at 0.07 and has since downtrended -no EKG changes -no anginal sxs -likely ischemic demand 2/2 acute infection (8) History of permanent cardiac pacemaker placement Current Visit: Yes Status: Acute Code(s): Z95.0 - PRESENCE OF CARDIAC PACEMAKER SNOMED Code(s): 626770436 Comment: -due to 3rd degree heart block -No ACS symptoms (9) DVT prophylaxis Current Visit: Yes Status: Acute Code(s): Z29.9 - ENCOUNTER FOR PROPHYLACTIC MEASURES, UNSPECIFIED SNOMED Code(s): 928874638 Comment: -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
[2019-07-27] MEDS: Enoxaparin(*) 40 MG/0.4 ML SYR SUBCUT SCH (19:35)
[2019-07-27] MEDS: Insulin GLARGINE(*) 1 UNITS UNIT SUBCUT SCH (22:21)
[2019-07-28] MEDS: Aspirin 81 mg CHEW TAB* 81 MG TAB.CHEW PO SCH (08:13)
[2019-07-28] MEDS: amLODIPine TAB* 5 MG PO SCH (08:13)
[2019-07-28] MEDS: Clopidogrel TAB* 75 MG PO SCH (08:13)
[2019-07-28] MEDS: Atorvastatin* 40 MG TAB PO SCH (08:13)
[2019-07-28] MEDS: Losartan TAB* 25 MG PO SCH (08:13)
[2019-07-28] MEDS: Metoprolol Succinate XL TAB* 100 MG PO SCH (08:14)
[2019-07-28] MEDS: metFORMIN* 500 MG TAB PO SCH ×2 (08:14→20:15)
[2019-07-28] MEDS: Insulin LISPRO* 1 UNITS UNIT SUBCUT SCH ×3 (08:15→16:34)
[2019-07-28] MEDS: Nystatin TOP POWDER* 15 GM BTL TOPICAL SCH ×3 (08:16→20:16)
[2019-07-28] MEDS ORDERED: Dextrose 50% Syringe 50 ML* 25 GM/50 ML SYRINGE IV PUSH PRN (12:45)
--- NOTE | 2019-07-28 18:32 | PN ---
Subjective Date of Service: 07/28/19 Interval History: Nephew Faizan came to hospital today reportedly per ; he appealed discharge yesterday and plans to bring her to [place] to live with him when appeal process has ended. No acute overnight events. Patient is without complaints today. Denies abd pain , fever/chills ,dysuria, chest pain, difficulty breathing. Family History: Unchanged from Admission Social History: Unchanged from Admission Past Medical History: Unchanged from Admission Objective Active Medications: Acetaminophen (Tylenol Tab*) 650 mg PO Q4H PRN PRN Reason: MILD PAIN or TEMP > 100.4 Amlodipine Besylate (Norvasc Tab*) 5 mg PO DAILY [facility] Last Admin: 07/28/19 08:13 Dose: 5 mg Aspirin (Aspirin 81 Mg Chew Tab*) 81 mg PO DAILY [facility] Last Admin: 07/28/19 08:13 Dose: 81 mg Atorvastatin Calcium (Lipitor*) 40 mg PO DAILY [facility] Last Admin: 07/28/19 08:13 Dose: 40 mg Clopidogrel Bisulfate (Plavix Tab*) 75 mg PO DAILY [facility] Last Admin: 07/28/19 08:13 Dose: 75 mg Dextrose (D50w Syringe 50 Ml*) 12.5 gm IV PUSH .FOR FS < 60 - SS PRN PRN Reason: FS < 60 Enoxaparin Sodium (Lovenox(*)) 40 mg SUBCUT Q24H [facility] Last Admin: 07/27/19 19:35 Dose: 40 mg Insulin Glargine (Lantus(*)) 7 units SUBCUT BEDTIME [facility] Last Admin: 07/27/19 22:21 Dose: 7 units Insulin Human Lispro (Humalog*) 0 units SUBCUT AC [facility]; Protocol Last Admin: 07/28/19 16:34 Dose: Not Given Losartan Potassium (Cozaar Tab*) 100 mg PO DAILY [facility] Last Admin: 07/28/19 08:13 Dose: 100 mg Metformin HCl (Glucophage*) 750 mg PO BID [facility] Last Admin: 07/28/19 08:14 Dose: 750 mg Metoprolol Succinate (Toprol Xl Tab*) 100 mg PO DAILY [facility] Last Admin: 07/28/19 08:14 Dose: 100 mg Nystatin (Nystatin Top Powder*) 1 applic TOPICAL TID [facility] Last Admin: 07/28/19 13:46 Dose: 1 applic Vital Signs - 8 hr 07/28/19 07/28/19 11:15 15:15 Temperature 97.7 F 97.5 F Pulse Rate 79 81 Respiratory 16 18 Rate Blood Pressure 134/78 131/47 (mmHg) O2 Sat by Pulse 95 93 Oximetry Oxygen Devices in Use Now: None Appearance: Obese, elderly white female, laying in bed, appearing comfortable and in NAD Eyes: No Scleral Icterus, - - PERRL Ears/Nose/Mouth/Throat: Mucous Membranes Moist Neck: Trachea Midline Respiratory: Symmetrical Chest Expansion and Respiratory Effort, Clear to Auscultation Cardiovascular: NL Sounds; No Murmurs; No JVD, RRR Abdominal: - - abd soft, nontender, nondistended; no suprapubic tenderness Extremities: No Edema, No Clubbing, Cyanosis Skin: No Rash or Ulcers Neurological: Alert and Oriented x 3, NL Muscle Strength and Tone Result Diagrams: 07/25/19 09:40 07/26/19 05:44 Microbiology and Other Data: Microbiology 07/18/19 17:00 Urine Culture - Final Urine Klebsiella Pneumoniae 07/18/19 19:05 Aerobic Blood Culture - Preliminary Blood Venous No Growth Day 1 Anaerobic Blood Culture - Preliminary No Growth Day 1 07/18/19 19:13 Aerobic Blood Culture - Preliminary Blood Venous No Growth Day 1 Anaerobic Blood Culture - Preliminary No Growth Day 1 Assess/Plan/Problems-Billing Assessment: 79 yo female with PMHx DMT2, HTN, 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 - Patient Problems (1) Memory loss Current Visit: Yes Status: Acute Code(s): R41.3 - OTHER AMNESIA SNOMED Code(s): 07211890 Comment: -due to this patient's memory loss she was brought to the ED for concern for her safety at home -I find this patient to lack capacity to request discharge to home at this time. She is unable to explain the negative implications of taking insulin incorrectly, not eating, and not having a working phone at home. I do not believe psychiatry needs to be consulted for this at this time. -SW involved, disposition pending -at her cognitive baseline (2) Sepsis Current Visit: Yes Status: Acute Comment: -2/2 UTI -signs of sepsis (leukocytosis and tachycardia) resolved -blood culture without growth -completed 7d of ceftriaxone (3) UTI (urinary tract infection) Current Visit: No Status: Acute Comment: -presented with AMS however patient seems to overall be at her baseline confusion based on description from friend and PCP notes -urine culture positive for klebsiella and has completed course of ceftriaxone (4) Diabetes mellitus type 2 in obese Current Visit: Yes Status: Acute Code(s): E11.69 - TYPE 2 DIABETES MELLITUS WITH OTHER SPECIFIED COMPLICATION; E66.9 - OBESITY, UNSPECIFIED SNOMED Code(s) : 06257502 Comment: -A1c 8.8 indicating patient could have better control -continue glargine and lispro SS -BGs with good control today in 150s-160s (5) HTN (hypertension) Current Visit: No Status: Acute Code(s): I10 - ESSENTIAL (PRIMARY) HYPERTENSION SNOMED Code(s): 76909330 Comment: -normotensive -continue amlodipine, losartan, and metoprolol -it is unclear why patient is on aspirin and plavix. The two PCP progress notes from 2019 do not reflect diagnosis of CVA/TIA/CAD on PMHx list, but will continue these while inpatient (6) Bilateral lower extremity edema Current Visit: Yes Status: Acute Code(s): R60.0 - LOCALIZED EDEMA SNOMED Code(s): 998020918 Comment: -patient has chronic bilateral LE edema for which she takes bumex prn -no edema today and will hold bumex for now (7) Elevated troponin Current Visit: Yes Status: Acute Code(s): R79.89 - OTHER SPECIFIED ABNORMAL FINDINGS OF BLOOD CHEMISTRY SNOMED Code(s): 191351419 Comment: -peaked at 0.07 and has since downtrended -no EKG changes -no anginal sxs -likely ischemic demand 2/2 acute infection (8) History of permanent cardiac pacemaker placement Current Visit: Yes Status: Acute Code(s): Z95.0 - PRESENCE OF CARDIAC PACEMAKER SNOMED Code(s): 392772320 Comment: -due to 3rd degree heart block (9) DVT prophylaxis Current Visit: Yes Status: Acute Code(s): Z29.9 - ENCOUNTER FOR PROPHYLACTIC MEASURES, UNSPECIFIED SNOMED Code(s): 681992638 Comment: -has hx of DVT/PE but not on AC -lovenox while in hospital (10) Full code status Current Visit: Yes Status: Acute Code(s): Z78.9 - OTHER SPECIFIED HEALTH STATUS SNOMED Code(s): 411438616 Status and Disposition: pending planning via social work; anticipate discharge to nephew's home when discharge appeal has completed; patient is medically ready to be discharged
[2019-07-28] MEDS: Enoxaparin(*) 40 MG/0.4 ML SYR SUBCUT SCH (19:31)
[2019-07-28] MEDS: Insulin GLARGINE(*) 1 UNITS UNIT SUBCUT SCH (20:16)
[2019-07-29] MEDS: Metoprolol Succinate XL TAB* 100 MG PO SCH (08:50)
[2019-07-29] MEDS: amLODIPine TAB* 5 MG PO SCH (08:50)
[2019-07-29] MEDS: Aspirin 81 mg CHEW TAB* 81 MG TAB.CHEW PO SCH (08:50)
[2019-07-29] MEDS: metFORMIN* 500 MG TAB PO SCH ×2 (08:50→20:19)
[2019-07-29] MEDS: Atorvastatin* 40 MG TAB PO SCH (08:50)
[2019-07-29] MEDS: Clopidogrel TAB* 75 MG PO SCH (08:50)
[2019-07-29] MEDS: Losartan TAB* 25 MG PO SCH (08:50)
[2019-07-29] MEDS: Insulin LISPRO* 1 UNITS UNIT SUBCUT SCH ×3 (08:54→17:10)
--- NOTE | 2019-07-29 10:17 | PN ---
Subjective Date of Service: 07/29/19 Interval History: Patient has no complaints this morning. No overnight events. Patient awakes easily from sleep and tells me she feels well. She denies abd pain, back pain, fever/chills, difficulty breathing, and chest pain. She tells me she is excited to move to [place] with her nephew, Faizan. Family History: Unchanged from Admission Social History: Unchanged from Admission Past Medical History: Unchanged from Admission Objective Active Medications: Acetaminophen (Tylenol Tab*) 650 mg PO Q4H PRN PRN Reason: MILD PAIN or TEMP > 100.4 Amlodipine Besylate (Norvasc Tab*) 5 mg PO DAILY [facility] Last Admin: 07/29/19 08:50 Dose: 5 mg Aspirin (Aspirin 81 Mg Chew Tab*) 81 mg PO DAILY [facility] Last Admin: 07/29/19 08:50 Dose: 81 mg Atorvastatin Calcium (Lipitor*) 40 mg PO DAILY [facility] Last Admin: 07/29/19 08:50 Dose: 40 mg Clopidogrel Bisulfate (Plavix Tab*) 75 mg PO DAILY [facility] Last Admin: 07/29/19 08:50 Dose: 75 mg Dextrose (D50w Syringe 50 Ml*) 12.5 gm IV PUSH .FOR FS < 60 - SS PRN PRN Reason: FS < 60 Enoxaparin Sodium (Lovenox(*)) 40 mg SUBCUT Q24H [facility] Last Admin: 07/28/19 19:31 Dose: 40 mg Insulin Glargine (Lantus(*)) 7 units SUBCUT BEDTIME [facility] Last Admin: 07/28/19 20:16 Dose: 7 units Insulin Human Lispro (Humalog*) 0 units SUBCUT AC [facility]; Protocol Last Admin: 07/29/19 08:54 Dose: 3 unit Losartan Potassium (Cozaar Tab*) 100 mg PO DAILY [facility] Last Admin: 07/29/19 08:50 Dose: 100 mg Metformin HCl (Glucophage*) 750 mg PO BID [facility] Last Admin: 07/29/19 08:50 Dose: 750 mg Metoprolol Succinate (Toprol Xl Tab*) 100 mg PO DAILY [facility] Last Admin: 07/29/19 08:50 Dose: 100 mg Nystatin (Nystatin Top Powder*) 1 applic TOPICAL TID [facility] Last Admin: 07/28/19 20:16 Dose: 1 applic Vital Signs - 8 hr 07/29/19 03:15 Temperature 97.6 F Pulse Rate 73 Respiratory 20 Rate Blood Pressure 115/61 (mmHg) O2 Sat by Pulse 91 Oximetry Oxygen Devices in Use Now: None Appearance: Obese, elderly white female, laying supine in bed, appearing comfortable and in NAD Eyes: No Scleral Icterus, - - PERRL Ears/Nose/Mouth/Throat: Mucous Membranes Moist Neck: Trachea Midline Respiratory: Symmetrical Chest Expansion and Respiratory Effort, Clear to Auscultation Cardiovascular: NL Sounds; No Murmurs; No JVD, RRR Abdominal: - - abd soft, nontender, nondistended Extremities: No Edema, No Clubbing, Cyanosis Skin: No Rash or Ulcers Neurological: Alert and Oriented x 3, NL Muscle Strength and Tone Result Diagrams: 07/25/19 09:40 07/26/19 05:44 Microbiology and Other Data: Microbiology 07/18/19 17:00 Urine Culture - Final Urine Klebsiella Pneumoniae 07/18/19 19:05 Aerobic Blood Culture - Preliminary Blood Venous No Growth Day 1 Anaerobic Blood Culture - Preliminary No Growth Day 1 07/18/19 19:13 Aerobic Blood Culture - Preliminary Blood Venous No Growth Day 1 Anaerobic Blood Culture - Preliminary No Growth Day 1 Assess/Plan/Problems-Billing Assessment: 79 yo female with PMHx DMT2, HTN, 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 - Patient Problems (1) Memory loss Current Visit: Yes Status: Acute Code(s): R41.3 - OTHER AMNESIA SNOMED Code(s): 03622283 Comment: -due to this patient's memory loss she was brought to the ED for concern for her safety at home -I find this patient to lack capacity to request discharge to home at this time. She is unable to explain the negative implications of taking insulin incorrectly, not eating, and not having a working phone at home. I do not believe psychiatry needs to be consulted for this at this time. -will be moving in with her nephew per SW -at her cognitive baseline (2) Sepsis Current Visit: Yes Status: Acute Comment: -2/2 UTI -signs of sepsis (leukocytosis and tachycardia) resolved -blood culture without growth -completed 7d of ceftriaxone (3) UTI (urinary tract infection) Current Visit: No Status: Acute Comment: -presented with AMS however patient seems to overall be at her baseline confusion based on description from friend and PCP notes -urine culture positive for klebsiella and has completed course of ceftriaxone (4) Diabetes mellitus type 2 in obese Current Visit: Yes Status: Acute Code(s): E11.69 - TYPE 2 DIABETES MELLITUS WITH OTHER SPECIFIED COMPLICATION; E66.9 - OBESITY, UNSPECIFIED SNOMED Code(s) : 28568077 Comment: -A1c 8.8 indicating patient could have better control -continue glargine and lispro SS -BGs with good range (5) HTN (hypertension) Current Visit: No Status: Acute Code(s): I10 - ESSENTIAL (PRIMARY) HYPERTENSION SNOMED Code(s): 80312621 Comment: -normotensive -continue amlodipine, losartan, and metoprolol -it is unclear why patient is on aspirin and plavix. The two PCP progress notes from 2019 do not reflect diagnosis of CVA/TIA/CAD on PMHx list, but will continue these while inpatient (6) Bilateral lower extremity edema Current Visit: Yes Status: Acute Code(s): R60.0 - LOCALIZED EDEMA SNOMED Code(s): 726139028 Comment: -patient has chronic bilateral LE edema for which she takes bumex prn -no edema today and will hold bumex for now (7) Elevated troponin Current Visit: Yes Status: Acute Code(s): R79.89 - OTHER SPECIFIED ABNORMAL FINDINGS OF BLOOD CHEMISTRY SNOMED Code(s): 059247037 Comment: -peaked at 0.07 and has since downtrended -no EKG changes -no anginal sxs -likely ischemic demand 2/2 acute infection (8) History of permanent cardiac pacemaker placement Current Visit: Yes Status: Acute Code(s): Z95.0 - PRESENCE OF CARDIAC PACEMAKER SNOMED Code(s): 521755638 Comment: -due to 3rd degree heart block (9) DVT prophylaxis Current Visit: Yes Status: Acute Code(s): Z29.9 - ENCOUNTER FOR PROPHYLACTIC MEASURES, UNSPECIFIED SNOMED Code(s): 174860061 Comment: -has hx of DVT/PE but not on AC -lovenox while in hospital (10) Full code status Current Visit: Yes Status: Acute Code(s): Z78.9 - OTHER SPECIFIED HEALTH STATUS SNOMED Code(s): 474101569 Status and Disposition: appeal process pending; plan for d/c tomorrow to home with nephew in [place]
--- NOTE | 2019-07-29 16:10 | DS ---
CC: Dr. Morrell * DISCHARGE SUMMARY: DATE OF ADMISSION: 07/18/19 DATE OF ANTICIPATED DISCHARGE: 07/30/19 ATTENDING PHYSICIAN WHILE IN THE HOSPITAL: Dr. Pablito Olvera * (dictated by TAMMIE Garza) PRIMARY CARE PROVIDER: Dr. Morrell. PRIMARY DIAGNOSES: 1. 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 2. Sepsis secondary to a urinary tract infection, resolved. 3. Thrombocytopenia, likely reactive to acute infection, resolved. SECONDARY DIAGNOSES: 1. Hypertension. 2. Type-2 diabetes. 3. History of deep vein thrombosis/pulmonary embolus, not on anticoagulation. 4. Chronic lower extremity edema. 5. Third degree heart block, status post pacemaker. 6. Obstructive sleep apnea, not using CPAP. 7. Diastolic heart failure. PERTINENT STUDIES/LAB DATA: Brain CT on 07/18/19: 1. No acute intracranial process evident. 2. Involutional change and stigmata of probable chronic small vessel ischemic disease. Chest x-ray on 07/18/19, impression: Interval appearance of patchy density overlying the lateral right upper lung could be infiltrate or pulmonary edema according to the patient's clinical presentation. Urine culture positive for Klebsiella pneumoniae. White blood cell count 12.6 at admission, later on 07/25/19 was 7.7. Platelet count 101 at admission and later on 07/25/19 was 288. BNP 1084. HISTORY OF PRESENT ILLNESS/HOSPITAL COURSE: Bhavya Hooper is a 79-year-old white female with past medical history significant for type 2 diabetes; hypertension; history of DVT/PE, not on anticoagulation; history of third degree block, status post pacemaker, who presented to the emergency department via EMS after a friend brought her home from the [facility] when she was confused and could not figure out how to get home. Her friend, Kalpana did discuss this further with our medical staff that the patient has been ongoing trouble caring for herself at home, not eating meals and frequently not taking her medications. Please see further details in the history and physical written by Lubna Amin, nurse practitioner. It was quite evident that the patient was frequently pleasantly confused, but was easily able to redirect her questions. The patient, upon extensive discussion, was found to not have capacity to leave hospital against medical advice and to not return home without additional assistance. The reason for this is that the patient was unable to express the consequences of not eating, especially in the setting of her diagnosis of diabetes, not taking her medications daily, not following up her primary care provider when needed. Additionally, the patient was unable to express the risks of taking additional insulin if she had forgotten if she had taken her first dose already. Social Work was thoroughly involved in this case initially looking for assistance living placement for this patient and ultimately, her nephew, Faizan, was going to take the patient home with him in [place] to assist with her care. The patient like did have some minimally worsened confusion in the setting of having UTI; however, even after complete treatment of her UTI, was still lacking capacity and unable to answer some questions appropriately. She initially presented with signs of sepsis, which later resolved. She was afebrile throughout her entirety of hospital stay and her leukocytosis did improve. She received a full course of ceftriaxone for her UTI. The cultures were negative during her hospital stay. Her chest x-ray was concerning for questionable pulmonary edema and she was started on her Bumex. She was also with some lower extremity edema. She typically uses this p.r.n. at home and she likely has some mild decompensation of her heart failure though as she does have diastolic heart failure. Of note, the patient incidentally was found to have a minimally elevated troponin to 0.07, which has downtrended and it was likely only elevated in the setting of her acute infection representing ischemic demand. Otherwise, her home medications were continued including her insulin and antihypertensive medication. The patient's home insulin was decreased while she is in the hospital considering her having better control with her diet and the sliding scale lispro was utilized and was not needed at every meal and usually in low doses approximately 3 units. DISCHARGE PLAN: Diet: Low carbohydrate diet. activity Activity: The patient may return to normal activity as tolerated. The patient is moving to [place] with her nephew, Faizan. She should establish a new primary care provider in [place] and it would be beneficial for her to have good followup within a month there regarding this hospitalization and to establish care. She should return to the emergency department if she is experiencing fever, chills, difficulty breathing, abdominal pain, low back pain, chest pain or other concerning symptoms. DISCHARGE MEDICATIONS: New Medications: Insulin glargine 7 units subcu at bedtime. Continued Home Medications: 1. Bumex 1 mg p.o. every other day p.r.n. lower extremity swelling. 2. Vitamin B12 1000 mcg injection monthly. 3. Lipitor 40 mg p.o. daily. 4. Aspirin 81 mg p.o. daily. 5. Amlodipine 5 mg p.o. daily. 7. Metoprolol succinate 100 mg p.o. daily. 8. Plavix 75 mg p.o. daily. 9. Metformin 1500 mg p.o. daily. 10. Losartan 100 mg p.o. daily,. Discontinued Home Medications: Insulin glargine 44 units subcu daily. CONDITION ON DISCHARGE: Stable. DISPOSITION: Home with nephew in [place]. TIME SPENT: Approximately 35 minutes was spent on this discharge, approximately half of that time was spent at bedside discussing the plan of care with the patient. TAMMIE GARZA [id number]/[facility] #: [id number] [place]
[2019-07-29] MEDS: Nystatin TOP POWDER* 15 GM BTL TOPICAL SCH ×3 (16:17→20:19)
[2019-07-29] MEDS: Insulin GLARGINE(*) 1 UNITS UNIT SUBCUT SCH (20:18)
[2019-07-29] MEDS: Enoxaparin(*) 40 MG/0.4 ML SYR SUBCUT SCH (20:18)
[2019-07-30] MEDS: Atorvastatin* 40 MG TAB PO SCH (07:48)
[2019-07-30] MEDS: Losartan TAB* 25 MG PO SCH (07:48)
[2019-07-30] MEDS: amLODIPine TAB* 5 MG PO SCH (07:49)
[2019-07-30] MEDS: metFORMIN* 500 MG TAB PO SCH (07:49)
[2019-07-30] MEDS: Clopidogrel TAB* 75 MG PO SCH (07:49)
[2019-07-30] MEDS: Metoprolol Succinate XL TAB* 100 MG PO SCH (07:49)
[2019-07-30] MEDS: Aspirin 81 mg CHEW TAB* 81 MG TAB.CHEW PO SCH (07:49)
[2019-07-30] MEDS: Nystatin TOP POWDER* 15 GM BTL TOPICAL SCH (07:56)
[2019-07-30] MEDS: Insulin LISPRO* 1 UNITS UNIT SUBCUT SCH (08:30)
[2019-07-30 09:46] VITALS: BP 136/74
== END 2019-07-30 09:44 | disposition home or self-care (01) | DRG 871 ==
LOC: ED 13:49 → MEDTELE 17:49 → OBSVTOIN 18:00
PROVIDERS: ADMIT Internal Medicine; ATTEND Internal Medicine
DX: A41.59 Other Gram-negative sepsis (principal); I50.33 Acute on chronic diastolic (congestive) heart failure; Z68.41 Body mass index [BMI] 40.0-44.9, adult; N39.0 Urinary tract infection, site not specified; I44.2 Atrioventricular block, complete; I24.8 Other forms of acute ischemic heart disease; F03.90 Unspecified dementia, unspecified severity, without behavioral disturbance, psychotic disturbance, mood disturbance, and anxiety; E11.9 Type 2 diabetes mellitus without complications; E78.00 Pure hypercholesterolemia, unspecified; K57.90 Diverticulosis of intestine, part unspecified, without perforation or abscess without bleeding; J45.909 Unspecified asthma, uncomplicated; G47.33 Obstructive sleep apnea (adult) (pediatric); E66.01 Morbid (severe) obesity due to excess calories; I44.4 Left anterior fascicular block; D69.6 Thrombocytopenia, unspecified; I11.0 Hypertensive heart disease with heart failure; B96.1 Klebsiella pneumoniae [K. pneumoniae] as the cause of diseases classified elsewhere; Z95.0 Presence of cardiac pacemaker; Z86.711 Personal history of pulmonary embolism; Z91.14 Patient's other noncompliance with medication regimen; Z86.718 Personal history of other venous thrombosis and embolism; Z88.1 Allergy status to other antibiotic agents; Z88.8 Allergy status to other drugs, medicaments and biological substances; Z86.73 Personal history of transient ischemic attack (TIA), and cerebral infarction without residual deficits; Z87.891 Personal history of nicotine dependence; Z87.440 Personal history of urinary (tract) infections; Z79.4 Long term (current) use of insulin; Z79.82 Long term (current) use of aspirin; Z79.02 Long term (current) use of antithrombotics/antiplatelets
CPT/HCPCS: 36415; 70450; 71045; 80048; 80053; 81003; 81015; 83036; 83735; 83880; 84443; 84484; 85025; 85060; 86140; 87040; 87077; 87086; 87186; 93005; 99285; A9270-GY; J0696; J1650; J3475